=== PATIENT | female | born 1970 | race Caucasian/White ===

== ENCOUNTER 2017-09-11 17:54 | Emergency (ER) | payer MEDICAID, SELFPAY ==
[2017-09-11 17:55] VITALS: BP 121/79; PULSE 92; RESP 16; TEMP 37.2; O2SAT 97; BMI 39.6
--- NOTE | 2017-09-11 18:29 | ED.DEP ---
ED Disposition - Plan for ED Patient: Chief Complaint: Cough Instructions: ED Bronchitis Asthmatic Prescriptions: Azithromycin [Zithromax Z-Wilmer] 250 mg PO UD #1 box Prednisone [Deltasone] 20 mg PO BID #6 tab Referrals: Stephany Livingston MD [Primary Care Provider] - 5-7 Days
--- NOTE | 2017-09-11 18:31 | ED.VISSUMM ---
- ER Visit Summary Date of Service: 09/11/17 Chief Complaint: [Cough] History of Present Illness: The patient is a 47 F [presents to the emergency department with complaint of a cough times 2-3 days. Patient states that she coughed up some green phlegm at times. Patient states that her air conditioner also currently not working and has been hot over the last few days and she thinks that has affected her asthma and COPD. Patient denies fever at home. Patient complains of some chest discomfort with cough only. She denies any sick contacts. Patient's been using her nebulizer at home 4 times a day.] Physical Examination: [HEENT-PERRLA, EOMI. Cranial nerves II through XII grossly intact. TMs clear. Mucous membranes moist. No adenopathy. Cardiovascular-regular rate and rhythm without murmur or ectopy Lungs-clear to auscultation, chest wall stable without crepitus or subcu emphysema Abdomen-normoactive bowel sounds, soft, nontender, no rebound or rigidity, no peritoneal signs. Extremities-intact ?4, normal range of motion, normal pulses, atraumatic] Test Results: [None indicated] Emergency Department Course and Treatment: [Patient will be started on Zithromax and prednisone] Treatment Plan: [Follow-up with primary care physician in 5-7 days.] Disposition: [Discharged home in stable condition. Patient advised to return if increased difficulty breathing or condition should worsen in any way.] Impression: [Asthmatic bronchitis] This note was generated with [employer] dictation software. It may contain incorrect words, spelling, and punctuation that were not noted in review of the chart prior to signing ED Disposition - Plan for ED Patient: Chief Complaint: Cough Instructions: ED Bronchitis Asthmatic Prescriptions: Azithromycin [Zithromax Z-Wilmer] 250 mg PO UD #1 box Prednisone [Deltasone] 20 mg PO BID #6 tab Referrals: Stephany Livingston MD [Primary Care Provider] - 5-7 Days
[2017-09-11 18:46] VITALS: BP 131/82; PULSE 86; RESP 18; O2SAT 94
== END 2017-09-11 18:47 | disposition home or self-care (01) ==
LOC: ED 18:43
PROVIDERS: Emergency Provider Emergency Medicine; Family Provider Internal Medicine; PCP Internal Medicine
DX: J44.9 Chronic obstructive pulmonary disease, unspecified (principal); Z86.73 Personal history of transient ischemic attack (TIA), and cerebral infarction without residual deficits; I25.2 Old myocardial infarction; E11.9 Type 2 diabetes mellitus without complications; Z90.49 Acquired absence of other specified parts of digestive tract; Z79.84 Long term (current) use of oral hypoglycemic drugs; Z79.02 Long term (current) use of antithrombotics/antiplatelets; Z79.899 Other long term (current) drug therapy; F17.220 Nicotine dependence, chewing tobacco, uncomplicated
CPT/HCPCS: 99284

== ENCOUNTER → 2018-01-12 07:27 | Outpatient (CLI) | payer MEDICAID, SELFPAY ==
--- NOTE | 2018-01-12 08:10 | BRBX_PTH ---
PATIENT: NELIA KNOWLES LOC: [facility] U#:[id number] AGE/SX: 54/F ROOM: RE01/12/[address]: Dr. Rachelle Robledo MD : [id number] BED: DIS: SPEC #: [id number] RECD: 01/12/18 09:01 STATUS: GHAZAL СВЕТЛАНА #: [id number] TAJ: 01/12/18 08:[address]: Rachelle Robledo DEPT: SURGICAL PATHOLOGY RECD BY: Silvana Yan ENTERED: 01/12/18 09:53 SP TYPE: BREAST BX OTHR DR: Dr. Stephany Livingston MD Tissues: Right breast, NOS Procedures: Surgery Specimen Level IV HEADER OPERATION: Right breast stereo needle core biopsy PRE-OP DIAGNOSIS: Microcalcifications 6 o'clock anterior depth TISSUE SUBMITTED: Right breast core tissue FIXATION TIME: 11 hours MICROSCOPIC DIAGNOSIS Right breast, core biopsy: Fibrocystic change. Focal intraductal hyperplasia without atypia. Banal microcalcifications. No evidence of malignancy. AM:roseanne 01/13/18 MICROSCOPIC DESCRIPTION Slides are reviewed. GROSS DESCRIPTION Received is one container labeled with the patient's name and not further designated. The specimen consists of multiple elongated fragments of karimi-yellow fibroadipose tissue that in aggregate measure 4 x 2 x 0.3 cm. The entire specimen is submitted in two cassettes. / SJ:roseanne 01/12/18 TC:5 CPT: 17769
--- NOTE | 2018-01-12 08:31 | PCM.OPRPT ---
Report of Operation Date of Procedure: 01/12/18 Pre-Operative Diagnosis: abnormal calcifications of right breast mammograms Post-Operative Diagnosis: same Surgery/Procedure Performed:: right stereotactic breast biopsy Description of Surgical Findings:: inferior inner aspect of right breast with abnormal calcifications Type of Anesthesia:: Local - 1% xylocaine Specimen's removed: right breast tissue Estimated Blood Loss (mL): 2 ml Fluids Replaced: none Description of Procedure: After informed consent was given, the patient was brought into the breast biopsy suite. Appropriate time out protocol was followed. She was then placed in the prone position on the stereotactic biopsy table. The patient?s left/right breast was then placed in the hole at the head of the table. A petroleum inspector supervisor compression mammogram was then obtained in the medial view. The suspicious radiological lesion was then identified. Stereo pictures of the lesion were then taken for XYZ coordinates. The Mammotome biopsy stylus was then positioned where it would be entering into the patient?s breast. The skin at this site was then cleansed with a surgical skin preparation. The skin and subcutaneous tissues at this site were then infiltrated with 1% xylocaine. A small skin incision was made with an 11 blade scalpel. The biopsy stylus was then positioned into the patient?s breast at the proper coordinates of depth. Using the Mammotome vacuum-assist device, several core samples of breast tissue were obtained. A specimen mammogram was the obtained and revealed that the calcifications were within the specimen. A hemostatic marker clip was then placed into the biopsy cavity and a petroleum inspector supervisor film revealed that it was properly deployed. The patient was then placed in the supine position and pressure was applied to the breast until no active bleeding was noted. A suture was applied to reapproximate the skin. A unilateral mammogram in the CC and MLO view were then taken which revealed that the marker clip was in the same area as the previous suspicious lesion. The patient tolerated the procedure well and was discharged from the breast biopsy suite in good condition. - Complications none noted
--- NOTE | 2018-01-12 08:48 | OP.PCM_ITS ---
Report of Operation Date of Procedure: 01/12/18 Pre-Operative Diagnosis: abnormal calcifications of right breast mammograms Post-Operative Diagnosis: same Surgery/Procedure Performed:: right stereotactic breast biopsy Description of Surgical Findings:: inferior inner aspect of right breast with abnormal calcifications Type of Anesthesia:: Local - 1% xylocaine Specimen's removed: right breast tissue Estimated Blood Loss (mL): 2 ml Fluids Replaced: none Description of Procedure: After informed consent was given, the patient was brought into the breast biopsy suite. Appropriate time out protocol was followed. She was then placed in the prone position on the stereotactic biopsy table. The patient?s left/right hayley st was then placed in the hole at the head of the table. A manual lathe machinist compression mammogram was then obtained in the medial view. The suspicious radiological lesion was then identified. Stereo pictures of the lesion were then taken for XYZ coordinates. The Mammotome biopsy stylus was then positioned where it would be entering into the patient?s breast. The skin at this site was then cleansed with a surgical skin preparation. The skin and subcutaneous tissues at this site were then infiltrated with 1% xylocaine. A small skin incision was made with an 11 blade scalpel. The biopsy stylus was then positioned into the patient?s breast at the proper coordinates of depth. Using the Mammotome vacuum-assist device, several core samples of breast tissue were obtained. A specimen mammogram was the obtained and revealed that the calcifications were within the specimen. A hemostatic marker clip was then placed into the biopsy cavity and a manual lathe machinist film revealed that it was properly deployed. The patient was then placed in the supine position and pressure was applied to the breast until no active bleeding was noted. A suture was applied to reapproximate the skin. A unilateral mammogram in the CC and MLO view were then taken which revealed that the marker clip was in the same area as the previous suspicious lesion. The patient tolerated the procedure well and was discharged from the breast biopsy suite in good condition. - Complications none noted
== END ==
PROVIDERS: Family Provider Internal Medicine; PCP Internal Medicine; Visit Provider Surgery
DX: N60.11 Diffuse cystic mastopathy of right breast (principal); N60.91 Unspecified benign mammary dysplasia of right breast; R92.0 Mammographic microcalcification found on diagnostic imaging of breast; E11.9 Type 2 diabetes mellitus without complications; G40.409 Other generalized epilepsy and epileptic syndromes, not intractable, without status epilepticus; E78.00 Pure hypercholesterolemia, unspecified; I10 Essential (primary) hypertension; G43.909 Migraine, unspecified, not intractable, without status migrainosus; L40.8 Other psoriasis; E66.9 Obesity, unspecified; J45.909 Unspecified asthma, uncomplicated; I25.2 Old myocardial infarction; F43.21 Adjustment disorder with depressed mood; Z86.2 Personal history of diseases of the blood and blood-forming organs and certain disorders involving the immune mechanism; Z86.73 Personal history of transient ischemic attack (TIA), and cerebral infarction without residual deficits; Z87.898 Personal history of other specified conditions; Z90.49 Acquired absence of other specified parts of digestive tract; Z79.84 Long term (current) use of oral hypoglycemic drugs; Z79.02 Long term (current) use of antithrombotics/antiplatelets; Z79.899 Other long term (current) drug therapy; Z87.891 Personal history of nicotine dependence; F17.220 Nicotine dependence, chewing tobacco, uncomplicated
CPT/HCPCS: 19081; 88305; J7050

== ENCOUNTER 2021-07-25 17:12 | Emergency (ER) | payer MEDICAID, SELFPAY ==
[2021-07-25 17:13] VITALS: BP 109/77; PULSE 105; RESP 16; TEMP 36.4; O2SAT 95; BMI 37.8
--- NOTE | 2021-07-25 17:30 | EKG12_ITS ---
Test Reason : CP Blood Pressure : / mmHG Vent. Rate : 098 BPM Atrial Rate : 098 BPM P-R Int : 144 ms QRS Dur : 084 ms QT Int : 360 ms P-R-T Axes : 063 -42 015 degrees QTc Int : 459 ms Normal sinus rhythm Left axis deviation Abnormal ECG Confirmed by DANIEL BEEBE, FREDY ([id number]), editor producer MARYA OGLESBY ([id number]) on 07/28/2021 1:33:10 PM Referred By: OTTO Confirmed By:FREDY SANCHEZ MD
--- NOTE | 2021-07-25 17:30 | ED.VIS.CHEST ---
HPI History of Present Illness Chief Complaint: Chest Pain Informant: patient Onset/Context/Timing Onset: Today Activity at onset: sudden Quality: Positive for - (Tightness with occasional sharp pain.) Location: - (Anterior chest wall) Current Severity: Mild Maximum Severity: Moderate Worsened By: Movement of Arm Narrative Narrative: Patient presents via EMS secondary to chest pain. She states that she was laying in bed about 1/2-hour before arrival to the ER. When she went to get up for work she noted chest tightness with occasional sharp pain. She states she has occasional shortness of breath but relates that to her asthma and COPD. She reports being told that she had an NH in 2017 but never went and got stents. She had been following with the cardiology office in [place]. [facility] Medical History Asthma COPD (chronic obstructive pulmonary disease) Diabetes Epilepsy History of stroke HTN (hypertension) Home Medications clopidogrel 75 mg PO DAILY 01/26/17 [History Last Taken Unknown] cyanocobalamin (vitamin B-12) [Vitamin B-12] 1,000 mcg IM Q30D 01/26/17 [History Last Taken Unknown] furosemide [Lasix] 40 mg PO DAILY 01/26/17 [History Last Taken Unknown] gabapentin [Neurontin] 300 mg PO DAILY 01/26/17 [History Last Taken Unknown] levetiracetam [Keppra] 750 mg PO BID 01/26/17 [History Last Taken Unknown] metformin 500 mg PO BID 01/26/17 [History Last Taken Unknown] omeprazole 20 mg PO DAILY #30 capsule 01/26/17 [Rx Last Taken Unknown] simvastatin 20 mg PO QHS 01/26/17 [History Last Taken Unknown] azithromycin 250 mg PO UD #1 box 09/11/17 [Rx Last Taken Unknown] prednisone 20 mg PO BID #6 tab 09/11/17 [Rx Last Taken Unknown] Allergy/AdvReac Type Severity Reaction Status Date / Time Latex, Natural Rubber Allergy Rash Verified 07/25/21 17:17 Penicillins [PCN] AdvReac Nausea/Vom/ Verified 07/25/21 17:17 Diarrhea Social History Smoking Status: Current every day smoker tobacco type: smokeless tobacco ROS ROS ED Constitutional Constitutional ED: Denies chills or fever(s) Eyes Eyes: Denies change in vision ENT ENT ED: Denies sore throat Cardiovascular Cardiovascular: Reports chest pain Respiratory/Chest Respiratory/Chest: Reports dyspnea; Denies cough Gastrointestinal Gastrointestinal: Denies abdominal pain, nausea or vomiting Genitourinary Genitourinary ED: Denies dysuria Musculoskeletal Musculoskeletal: Denies back pain Integumentary Denies rash Neurologic Neurologic: Denies headache(s) or weakness Allergic/Immunologic Allergic/Immunologic ED: Denies urticaria EXAM Physical Exam Const Vital Signs: 07/25/21 17:13 07/25/21 17:17 07/25/21 17:38 Temperature 97.5 F L Temperature Source Temporal Pulse Rate 105 H Respiratory Rate 16 Respiratory Effort Normal Non-Labored Blood Pressure 109/77 Blood Pressure Mean 87 Pulse Ox 95 Oxygen Delivery Method Room Air Room Air 07/25/21 18:12 07/25/21 20:30 Temperature Temperature Source Pulse Rate 77 Respiratory Rate 22 H Respiratory Effort Blood Pressure 109/75 107/70 Blood Pressure Mean 86 82 Pulse Ox 98 97 Oxygen Delivery Method Room Air Positive well nourished and well developed General Appearance ED: well developed HEENT normocephalic Eyes PERRL and EOMs intact bilaterally Neck supple Chest Wall inspection of chest normal Chest Narrative: Anterior chest wall tenderness to palpation. No crepitus. Resp normal respiratory effort Effort and Inspection: respiratory distress Cardio regular rate and regular rhythm GI normal to inspection, nondistended, normoactive bowel sounds, soft to palpation and non-tender Extremity Extremity Narrative: 2+ bilateral lower extremity edema. Neuro Sensorium / Orientation: awake and alert Psych mental status grossly normal Skin no rashes or lesions noted Heart Score History: Slightly/Non-Suspicious ECG: Normal Age: >45 - <65 years Risk Factors: >/= 3 Risk Factors or History of CAD Troponin: </= Normal Limit Score: 3 MDM MDM MDM Narrative Medical decision making narrative: Patient had been given aspirin and nitro with EMS. Lab work, EKG, chest x-ray obtained. Lab Data Attestation: I reviewed the patient's lab results. Labs: Laboratory Results - last 24 hr 07/25/21 07/25/21 07/25/21 17:45 17:45 17:45 WBC 6.2 RBC 4.48 Hgb 11.7 L Hct 37.0 MCV 82.6 MCH 26.1 L MCHC 31.6 L RDW Std Deviation 41.5 RDW Coeff of Pb 13.9 Plt Count 272 MPV 9.2 Immature Gran % (Auto) 0.200 Neut % (Auto) 56.8 Lymph % (Auto) 29.6 [place] % (Auto) 8.8 Eos % (Auto) 4.1 Baso % (Auto) 0.5 Absolute Neuts (auto) 3.5 Absolute Lymphs (auto) 1.82 Nucleated RBC % 0 D-Dimer Quant (PE/DVT) 0.65 H* Sodium 139 Potassium 3.2 L Chloride 102 Carbon Dioxide 33.0 H Anion Gap 4 L BUN 11 Creatinine 0.88 Estim Creat Clear Calc 65.31 Est GFR (MDRD) Af Amer 86 Est GFR (MDRD) Non-Af 71 BUN/Creatinine Ratio 12.4 Glucose 111 H Calcium 11.2 H Troponin I High Sens 4 07/25/21 20:08 WBC RBC Hgb Hct MCV MCH MCHC RDW Std Deviation RDW Coeff of Pb Plt Count MPV Immature Gran % (Auto) Neut % (Auto) Lymph % (Auto) [place] % (Auto) Eos % (Auto) Baso % (Auto) Absolute Neuts (auto) Absolute Lymphs (auto) Nucleated RBC % D-Dimer Quant (PE/DVT) Sodium Potassium Chloride Carbon Dioxide Anion Gap BUN Creatinine Estim Creat Clear Calc Est GFR (MDRD) Af Amer Est GFR (MDRD) Non-Af BUN/Creatinine Ratio Glucose Calcium Troponin I High Sens < 3 L Radiography Chest X-Ray - ED: 1 View, Read by ED Physician and Chronic Changes Diagnostic Testing: Clinical Impression(s) from Imaging Studies Chest X-Ray 07/25/21 17:42 IMPRESSION: Nonacute portable x-ray examination of the chest. Electronically Signed: Brad Justice MD ([place]) at 17:58 EDT , Chest CTA 07/25/21 18:59 IMPRESSION: No central or segmental pulmonary embolism. Electronically Signed: Brad Justice MD (Brooks) at 19:30 EDT , EKG Initial EKG: Attestation: I personally reviewed and interpreted this EKG as follows: Interpretation: Sinus Rhythm (Sinus at 98 with no acute ischemia.) Treatment and Re-Evaluation Narrative: Lab work reveals normal white count and hemoglobin. Chemistry studies significant only for slightly low potassium at 3.2. Initial troponin 4. D-dimer elevated at 0.65. Chest x-ray per my interpretation reveals chronic changes only. Radiologist interpretation reviewed. CTA of the chest obtained and reveals no evidence of PE. Repeat troponin obtained and is less than 3. On repeat evaluation patient is talking on cell phone in no discomfort. Test results discussed with her. Reassurance provided and return instructions given. Discharge Plan Triage Chief Complaint: Chest Pain ED Provider: Steph Trejo Dx/Rx/DC Orders Clinical Impression: Chest pain Instructions: ED Chest Pain, Uncertain Cause Prescriptions: No Action furosemide [Lasix] 40 MG tablet 40 mg PO DAILY RF: 0 metformin 500 MG tablet 500 mg PO BID RF: 0 clopidogrel 75 MG tablet 75 mg PO DAILY RF: 0 simvastatin 20 MG tablet 20 mg PO QHS RF: 0 gabapentin [Neurontin] 300 MG capsule 300 mg PO DAILY RF: 0 levetiracetam [Keppra] 750 MG tablet 750 mg PO BID RF: 0 cyanocobalamin (vitamin B-12) [Vitamin B-12] 1,000 MCG/ML Drops 1,000 mcg IM Q30D RF: 0 omeprazole 20 MG capsule 20 mg PO DAILY Qty: 30 RF: 0 azithromycin 250 MG tablet 250 mg PO UD Qty: 1 RF: 0 prednisone 20 MG tablet 20 mg PO BID Qty: 6 RF: 0 Primary Care Provider: Stephany Livingston Referrals: Stephany Livingston MD [Primary Care Provider] - 1-2 Weeks Activity Restrictions/Additional Instructions: Follow-up with your knife setter in [place]. Disposition Disposition: Home, Self Care
--- NOTE | 2021-07-25 17:42 | RAD_ITS ---
STUDY: X-RAY CHEST REASON FOR EXAM: Female, 50 years old. CHEST PAIN THAT STARTED ABOUT A HALF HOUR AGO. REPORTS PAIN WITH MOVEMENT. TECHNIQUE: AP COMPARISON: None. FINDINGS: The lungs are clear and expanded. There is no demonstrated pleural abnormality. Normal size heart. Normal mediastinum and jesusita. Normal visualized pulmonary arteries. Normal visualized aortic arch and descending thoracic aorta. Normal visualized thoracic spine. Normal visualized ribs, clavicles, and shoulders. There is no demonstrated abnormality of the visualized soft tissue structures of the upper abdomen. RAD/Chest 1 View (Portable) IMPRESSION: Nonacute portable x-ray examination of the chest. Electronically Signed: Brad Justice MD (Brooks) at 17:58 EDT ,
[2021-07-25 18:12] VITALS: BP 109/75; PULSE 77; RESP 22; O2SAT 98
[2021-07-25 18:14] LABS: Absolute Lymphocyte Count 1.82 X10^3/uL (0.83-4.51); Absolute Neutrophil Count 3.5 X10^3/uL (2.0-7.7); Basophil# 0.03 X10^3/uL; Basophil% 0.5 % (0-1); Eosinophil# 0.25 X10^3/uL; Eosinophils% 4.1 % (0-5); Hemoglobin 11.7 g/dL (12.0-15.0); Lymphocyte # 1.82 X10^3/ul (0.83-4.51); Lymphocyte % 29.6 % (19-41); Mean Corp Hgb Conc 31.6 g/dL (32-36); Mean Corpuscular Hgb 26.1 pg (27.0-32.0); Mean Corpuscular Volume 82.6 fL (81-99); Mean Platelet Vol. 9.2 fl (6.2-12.0); Monocyte# 0.54 X10^3/uL; Monocyte% 8.8 % (0-10); NRBC Flagged by Analyzer 0 % (0-5); Neutrophil % 56.8 % (47-70); Platelet Count 272 K/mm3 (150-450); RBC Distribution Width CV 13.9 % (11.6-14.6); RBC Distribution Width SD 41.5 fl (35.1-43.9); Red Blood Count 4.48 M/mm3 (4.2-5.4); White Blood Count 6.2 K/mm3 (4.4-11.0)
[2021-07-25 18:34] LABS: Anion Gap 4 (5-15); BUN 11 mg/dL (7-18); BUN/Creat Ratio 12.4 RATIO (10-20); Calcium,Total 11.2 mg/dL (8.5-10.1); Chloride 102 mmol/L (98-107); Creatinine, Serum 0.88 mg/dL (0.55-1.02); EST Glomerular Filtration Rate 71 mL/min (>60); Est Glom Filt Rate - Afr Amer 86 mL/min (>60); Estimated Creatinine Clearance 65.31 ml/min; Glucose 111 mg/dL (74-106); Potassium 3.2 mmol/L (3.5-5.1); Sodium Level 139 mmol/L (136-145); Troponin-I HS (w/2H Reflex) 4 pg/mL (3.0-54.0)
[2021-07-25 18:50] LABS: D-Dimer Quantitative (DVT/PE) 0.65 FEU/ug/m (0.27-0.49)
--- NOTE | 2021-07-25 18:59 | CT_ITS ---
STUDY: CTA CHEST REASON FOR EXAM: Female, 50 years old. chest pain RADIATION DOSAGE (If Supplied By Facility): CTDIvol = ( 13.66 ) mGy, DLP = ( 423.56 ) mGycm TECHNIQUE: The examination was performed with the intravenous administration of IV 100mL Isovue-370. Post-processing of the angiographic images was performed, with multiplanar reformation and 3D reconstruction. Individualized dose optimization techniques were used for this CT. COMPARISON: None. FINDINGS: Normal enhancement of the main pulmonary artery and right and left pulmonary arteries. Normal enhancement of the bilateral peripheral pulmonary arteries. There is no demonstrated pulmonary embolism. Normal thoracic aorta and visualized great vessels. There is no demonstrated aortic dissection. Normal heart and pericardium. Normal mediastinum. Normal hilar regions. Normal visualized trachea and bronchi. The lungs are well expanded. Normal pulmonary parenchyma. Normal pleura. Normal chest wall structures. Normal osseous structures. There are surgical clips in the gallbladder fossa consistent with a prior cholecystectomy. CT/CTA Chest W/WO Contrast IMPRESSION: No central or segmental pulmonary embolism. Electronically Signed: Brad Justice MD (Brooks) at 19:30 EDT Reading Location ID and State: [facility] / [place] , Service support ,
[2021-07-25 20:01] LABS: Reflex Troponin-HS? (from REC) Y
[2021-07-25 20:30] VITALS: BP 107/70; O2SAT 97
[2021-07-25 20:36] LABS: Troponin-I HS < 3 pg/mL (3.0-54.0)
== END 2021-07-25 21:29 | disposition home or self-care (01) ==
PROVIDERS: Emergency Provider Emergency Medicine; PCP Internal Medicine; Visit Provider Emergency Medicine
DX: R07.89 Other chest pain (principal); J44.9 Chronic obstructive pulmonary disease, unspecified; G40.909 Epilepsy, unspecified, not intractable, without status epilepticus; E11.9 Type 2 diabetes mellitus without complications; F17.220 Nicotine dependence, chewing tobacco, uncomplicated; I10 Essential (primary) hypertension; Z86.73 Personal history of transient ischemic attack (TIA), and cerebral infarction without residual deficits; Z79.899 Other long term (current) drug therapy; Z79.84 Long term (current) use of oral hypoglycemic drugs
CPT/HCPCS: 71045; 71275; 80048; 84484; 85025; 85379; 93005; 99284; Q9967; A4216

== ENCOUNTER → 2021-10-23 | Outpatient (CLI) | payer MEDICAID, SELFPAY ==
--- NOTE | 2021-10-23 06:09 | ECHOD_ITS ---
Reason For Study: HTN Procedure This was a 2D Doppler, Color Flow transthoracic echocardiogram. Exam performed in department. Left Ventricle Normal LV size. Left ventricular systolic function is normal. The estimated ejection fraction is 57 %. Stage 1 diastolic dysfunction. No regional wall motion abnormalities noted. Right Ventricle Normal RV size. Normal systolic function. Atria Normal left atrium. Normal right atrium. Mitral Valve Normal mitral valve. Tricuspid Valve Normal tricuspid valve. Mild tricuspid valve insufficiency. Pulmonary artery systolic pressure is 21 mmHg. Aortic Valve Trisinus/trileaflet aortic valve. Pulmonic Valve Normal pulmonic valve. Great Vessels Normal aortic root. The pulmonary artery is normal size. Normal inferior vena cava. Inferior vena cava collapse with respiration. Pericardium/Pleural No pericardial effusion. MMode/2D Measurements & Calculations LVIDd: 5.1 cm IVSd: 0.88 cm Ao root diam: 3.9 cm LVIDs: 3.6 cm LVPWd: 0.81 cm RVDd: 3.2 cm FS: 28.2 % LAV(MOD-bp): 61.3 ml LA A4 area: 18.1 cm2 LA dimension(2D): 4.0 cm LAV(MOD-bp) Indexed: 30.1 ml/m2 LAV(MOD-sp2): 69.2 ml LAV(MOD-sp4): 52.0 ml RA A4 area: 11.9 cm2 Time Measurements MV dec time: 0.17 sec Doppler Measurements & Calculations MV E max josé: 81.0 cm/sec Lat Peak E' José: 10.6 cm/sec Med Peak E' José: 8.5 cm/sec MV A max josé: 83.4 cm/sec E/E' lat: 7.7 E/E' med: 9.5 MV E/A: 0.97 MV dec slope: 481.1 cm/sec2 Ao V2 max: 142.6 cm/sec LV V1 max: 119.9 cm/sec Ao max P.1 mmHg LV V1 max P.7 mmHg Ao V2 mean: 105.8 cm/sec LV V1 mean P.8 mmHg Ao mean P.0 mmHg LV V1 mean: 76.3 cm/sec Ao V2 VTI: 34.9 cm LV V1 VTI: 27.0 cm PA V2 max: 87.7 cm/sec TR max josé: 219.9 cm/sec TR max P.3 mmHg ECHO/Echo Complete Interpretation Summary Normal LV size. Left ventricular systolic function is normal. The estimated ejection fraction is 57 %. Stage 1 diastolic dysfunction. Pulmonary artery systolic pressure is 21 mmHg. The global longitudinal strain is normal. The global longitudinal strain = -18. 2 % (normal). Ordering Physician: Gabe^Hatfield^^Dr.^ Referring Physician: Stephany Livingston Performed By: Anabela Franklin, ANDREZ, RVT
--- NOTE | 2021-10-23 15:13 | STRESSREP ---
Stress Test Report Pharmacologic myocardial perfusion stress test. 51-year-old lady with a history of chest pain. Stress protocol: Resting EKG demonstrates normal sinus rhythm with a rate of 75 bpm normal intervals are noted. 0.4 mg of regadenoson was infused per usual protocol followed by rapid intravenous saline flush injection continuous EKG monitoring was performed. The patient maintained sinus rhythm throughout the recording. At rest there were no ST or T wave changes noted to suggest abnormal flow reserve and at peak infusion nonspecific ST changes were noted which did not meet the criteria for ischemia. No clinical angina was noted. The maximum heart rate was 95 bpm which was 56% of max impacted heart rate the maximum workload was 1 metabolic equivalent. At rest there were no ST or T wave changes noted to suggest abnormal flow reserve and at peak infusion nonspecific ST changes were noted. Myocardial perfusion protocol. 11.8 mCi of technetium 99m sestamibi was injected at rest. 0.4 mg of regadenoson was infused per usual protocol. At peak infusion 33.0 mCi of technetium 99m sestamibi was injected stress images were obtained stress and rest images were reconstructed and compared in the short axis vertical long and horizontal long axis. Gated images were also obtained. Perfusion SPECT analysis: Review of the stress images demonstrate normal uptake of tracer noted in all areas of the myocardium except for the anterior wall with mildly reduced perfusion. The resting images demonstrate a similar pattern. No obvious areas of reversibility are noted suggest ischemia and no previous infarct is noted. Anterior breast wall attenuation is suggested. Gated SPECT analysis: The gated ejection fraction is 60%. Conclusion: Pharmacologic myocardial perfusion stress test which appears to be normal. Preserved ejection fraction.
== END | disposition home or self-care (01) ==
PROVIDERS: PCP Internal Medicine; Referring Provider Internal Medicine Cardiovascular Disease; Visit Provider Internal Medicine Cardiovascular Disease
DX: I10 Essential (primary) hypertension (principal)
CPT/HCPCS: 78452; 93017; 93306; A9500; A4216; J2785

== ENCOUNTER 2021-11-14 11:36 | Emergency (ER) | payer MEDICAID, SELFPAY ==
[2021-11-14 11:37] VITALS: BP 130/78; PULSE 92; RESP 23; TEMP 36.6; O2SAT 100; BMI 37.4
--- NOTE | 2021-11-14 11:56 | RAD_ITS ---
STUDY: X-RAY CHEST REASON FOR EXAM: Female, 51 years old. Chest pain. Chills. TECHNIQUE: Single AP portable view of the chest. COMPARISON: Comparison is made with prior study dated 07/25/2021. FINDINGS: EKG electrodes are seen. The lungs are clear and expanded. There is no demonstrated pleural abnormality. Normal size heart. Normal mediastinum and jesusita. Normal visualized pulmonary arteries. There is atherosclerotic tortuosity of the aortic arch and descending thoracic aorta. There are diffuse degenerative changes of the visualized thoracic spine. Normal visualized ribs, clavicles, and shoulders. There is no demonstrated abnormality of the visualized soft tissue structures of the upper abdomen. RAD/Chest 1 View (Portable) IMPRESSION: No acute abnormality is seen. Electronically Signed: Miguel Nicolas MD at 12:44 EDT ,
--- NOTE | 2021-11-14 11:56 | EKG12_ITS ---
Test Reason : Blood Pressure : / mmHG Vent. Rate : 078 BPM Atrial Rate : 078 BPM P-R Int : 164 ms QRS Dur : 090 ms QT Int : 380 ms P-R-T Axes : 004 -23 019 degrees QTc Int : 433 ms Sinus rhythm with Premature supraventricular complexes Otherwise normal ECG Confirmed by DELMI BEEBE, ANJANA ([id number]), scientific publications editor MARYA OGLESBY ([id number]) on 11/18/2021 8:56:21 AM Referred By: Confirmed By:SARATH AWAD MD
--- NOTE | 2021-11-14 11:57 | EX.ED.DYSGE1 ---
HPI History of Present Illness Chief Complaint: General Illness Informant: patient Onset/Context/Timing Onset: Today Current Severity: Mild Maximum Severity: Mild Narrative Narrative: 49-year-old female history of COPD, seizure, stroke in 2002 and diabetic. States she works at [employer]. On Wednesday she had some nausea and vomiting. Otherwise states she has been feeling well. 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 She denied any headache fraction. No chest pain. No abdominal pain. Said they got her a popsicle that speech and some fluids and she was feeling better. States she just feels a little lightheaded now. She has had nausea today but no vomiting today. No diarrhea or dysuria. No fever. No shortness of breath. Prior similar symptoms: Yes Recent Illness/Hospitalization: No PFSH [facility] Medical History Asthma COPD (chronic obstructive pulmonary disease) Epilepsy Essential hypertension History of CVA (cerebrovascular accident) (2002) Type 2 diabetes mellitus Home Medications furosemide 40 mg tablet (Lasix) 40 mg PO DAILY 01/26/17 [History Last Taken Unknown] gabapentin 300 mg capsule (Neurontin) 300 mg PO DAILY 01/26/17 [History Last Taken Unknown] levetiracetam 750 mg tablet (Keppra) 750 mg PO BID 01/26/17 [History Last Taken Unknown] omeprazole 20 mg capsule,delayed release 20 mg PO DAILY #30 caps 01/26/17 [Rx Last Taken Unknown] simvastatin 20 mg tablet 20 mg PO QHS 01/26/17 [History Last Taken Unknown] azithromycin 250 mg tablet 250 mg PO UD ##1 09/11/17 [Rx Last Taken Unknown] albuterol sulfate 90 mcg/actuation aerosol inhaler (Ventolin HFA) 2 puff inhalation Q6H PRN Shortness Of Breath 10/03/21 [History Last Taken Unknown] buspirone 5 mg tablet 5 mg PO DAILY 10/03/21 [History Last Taken Unknown] ferrous sulfate 325 mg (65 mg iron) tablet (FeroSul) 325 mg PO DAILY 10/03/21 [History Last Taken Unknown] fluticasone furoate 100 mcg-vilanterol 25 mcg/dose inhalation powder (Breo Ellipta) 1 inh inhalation DAILY 10/03/21 [History Last Taken Unknown] metoprolol succinate 50 mg tablet,extended release 24 hr (Toprol XL) 50 mg PO DAILY #90 tabs 10/03/21 [Rx Last Taken Unknown] potassium chloride 10 mEq tablet,extended release 10 meq PO DAILY 10/03/21 [History Last Taken Unknown] Allergy/AdvReac Type Severity Reaction Status Date / Time Latex, Natural Rubber Allergy Rash Verified 11/14/21 11:40 Penicillins [PCN] AdvReac Nausea/Vom/ Verified 11/14/21 11:40 Diarrhea Surgical History History of cholecystectomy History of left heart catheterization (12/11/16) Social History Smoking Status: Never smoker Smokeless tobacco user: chewing tobacco ROS ROS ED ROS Narrative Nausea and vomiting. Review of Systems ROS Unobtainable: Denies due to encephalopathy Constitutional Constitutional ED: Denies chills or fever(s) Eyes Eyes: Denies blurry vision ENT ENT ED: Denies ear pain Cardiovascular Cardiovascular: Denies chest pain or palpitations Respiratory/Chest Respiratory/Chest: Denies cough or dyspnea Gastrointestinal Gastrointestinal: Reports nausea and vomiting; Denies abdominal pain, constipation, diarrhea or melena Genitourinary Genitourinary ED: Denies dysuria or hematuria Musculoskeletal Musculoskeletal: Denies arthralgias Integumentary Denies abscess Neurologic Neurologic: Denies headache(s) Psychiatric Psychiatric: Denies anxiety Endocrine Endocrinology: Denies cold intolerance Hematologic/Lymphatic Hematologic/Lymphatic: Reports none Allergic/Immunologic Allergic/Immunologic ED: Denies mouth swelling or tongue swelling EXAM Physical Exam Narrative Exam Narrative: 51-year-old female no acute distress. Vital signs stable afebrile. Pulse ox high percent on room air no signs hypoxia. She does not look septic or toxic. She does not look significantly dehydrated. H EENT exam is unremarkable. Documentation tongue is coated orange from the popsicle she had prior to arrival. Moist Riis membranes. Neck nontender no JVD. No lymphadenopathy. Lungs clear to auscultation bilaterally. Heart regular rhythm no murmur. Abdomen soft nontender. Moving all 4 extremities. 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 Dorsi plantarflexion intact. Calves are nontender without edema. Neurologically she is awake and alert with no focal motor deficits. Answering questions and following commands. Const Vital Signs: 11/14/21 11:37 11/14/21 11:37 Temperature 97.9 F Temperature Source Temporal Pulse Rate 92 Respiratory Rate 23 H Respiratory Effort Normal Blood Pressure 130/78 H Blood Pressure Mean 95 Pulse Ox 100 Oxygen Delivery Method Room Air Positive well nourished, well developed and obese; Negative for cachectic, contractures or unkempt General Appearance ED: well developed and NAD; Negative for unkempt, cachectic, contractures, cyanotic or diaphoretic Nutritional Appearance: obese; Negative for cachectic HEENT Reports moist mucous membranes; Denies dry mucous membranes Negative for trauma or tenderness Mouth ED: No dry mucous membranes Mouth: No dry mucous membranes Eyes PERRL and EOMs intact bilaterally General Eye ED: Negative for pale conjunctiva or scleral icterus Neck no lymphadenopathy, supple and no JVD General: Negative for tenderness Lymph Lymphatic: Negative for other Chest Wall inspection of chest normal and palpation of chest normal Chest: Negative for other Resp normal respiratory effort and clear to auscultation bilaterally Effort and Inspection: Negative for retractions Auscultation: Negative for rales, rhonchi or wheezes Cardio regular rate, regular rhythm, S1 normal heart sound, S2 normal heart sound and no murmurs Palpation: Negative for palpable S3 Rate: Negative for bradycardia Rhythm: Negative for abnormal rhythm GI normal to inspection, nondistended, normoactive bowel sounds, non-tender, non-distended and no masses Inspection: Negative for abdominal distention Palpation: soft; Negative for tender, guarding or mass Back/Spine no CVA tenderness General Back: Negative for CVA tenderness Cervical Spine: Negative for cervical spine tenderness Thoracic Spine / Upper Back: Negative for thoracic spinal tenderness Lumbar Spine / Lower Back: Negative for lumbar spinal tenderness Extremity normal to inspection General Extremety ED: Negative for edema or tenderness General Extremity: Negative for edema Neuro oriented x3 and CN's II-XII intact bilaterally Sensorium / Orientation: alert; Negative for orientation impaired, lethargic or stuporous Motor Exam: strength 5/5 throughout; Negative for general weakness or strength abnormal Psych mental status grossly normal Appearance: Negative for unkempt Attitude: No agitated Mood & Affect: Negative for depressed or anxious Skin no rashes or lesions noted and no wounds Lesions: No lesion noted Rashes: No rashes noted Trauma: Negative for abrasion Wounds: Negative for wounds noted MDM MDM MDM Narrative Medical decision making narrative: 51-year-old with near syncope at work. Earlier in the week she had nausea and vomiting she may be mildly dehydrated. Obviously this could be a cardiac etiology but her exam is unremarkable. She explained to me she had a recent stress test and echocardiogram which she states were unremarkable. I did look up the echo results and it shows early diastolic dysfunction. Her exam is benign. Screening labs to be obtained. Repeat exam patient is doing well at 12:38 PM. Discharged home. Fluids and rest. Off work the rest the day. Return if feeling worse. Lab Data Attestation: I reviewed the patient's lab results. Lab results narrative: CBC normal white count of 7.9. H&H 12.2 and 37 9. Platelets 285. Electrolytes show a gap of 5 normal BUN and creatinine 11 and 0.7. No signs of dehydration. Glucose 88. Troponin normal at 6. Chest x-ray unremarkable. Labs: Laboratory Results - last 24 hr 11/14/21 11/14/21 12:05 12:05 WBC 7.9 RBC 4.46 Hgb 12.2 Hct 37.9 MCV 85.0 MCH 27.4 MCHC 32.2 RDW Std Deviation 41.4 RDW Coeff of Pb 13.3 Plt Count 285 MPV 9.4 Immature Gran % (Auto) 0.400 Neut % (Auto) 64.0 Lymph % (Auto) 24.6 [place] % (Auto) 7.0 Eos % (Auto) 3.4 Baso % (Auto) 0.6 Absolute Neuts (auto) 5.0 Absolute Lymphs (auto) 1.94 Nucleated RBC % 0 Sodium 137 Potassium 3.8 Chloride 102 Carbon Dioxide 30.0 Anion Gap 5 BUN 11 Creatinine 0.77 Estim Creat Clear Calc 73.80 Est GFR (MDRD) Af Amer 101 Est GFR (MDRD) Non-Af 83 BUN/Creatinine Ratio 14.2 Glucose 88 Calcium 10.9 H Troponin I High Sens 6 Radiography Chest X-Ray - ED: 1 View, Read by ED Physician, Heart, Lungs, Mediastinum, Bony Structures, No Acute Disease and Chronic Changes Diagnostic Testing: Chest x-ray, portable, single view interpreted by self shows no acute abnormality. Normal cardiac silhouette. Normal lung hallman. Rhythm Strip Rhythm Strip: Sinus Rhythm Rate: 78 Ectopy: None EKG Initial EKG: Attestation: I personally reviewed and interpreted this EKG as follows: Interpretation: Sinus Rhythm and No Acute Injury Pattern Comments: Renal sinus rhythm rate of 78 no acute signs of OK or ischemia. Premature supraventricular complexes. Prior EKG tracings: not available for review Discharge Plan Triage Chief Complaint: General Illness ED Provider: Vini Harris Dx/Rx/DC Orders Clinical Impression: Near syncope, History of CVA (cerebrovascular accident), History of diabetes mellitus Instructions: ED Near-Fainting, Uncertain Cause Prescriptions: No Action buspirone 5 mg tablet 5 mg PO DAILY ferrous sulfate [FeroSul] 325 mg (65 mg iron) tablet 325 mg PO DAILY potassium chloride 10 mEq tablet extended release 10 meq PO DAILY albuterol sulfate [Ventolin HFA] 90 mcg/actuation HFA aerosol inhaler 2 puff inhalation Q6H PRN (Reason: Shortness Of Breath) fluticasone furoate-vilanterol [Breo Ellipta] 100-25 mcg/dose blister with device 1 inh inhalation DAILY metoprolol succinate [Toprol XL] 50 mg tablet extended release 24 hr 50 mg PO DAILY Qty: 90 3RF furosemide [Lasix] 40 MG tablet 40 mg PO DAILY simvastatin 20 MG tablet 20 mg PO QHS gabapentin [Neurontin] 300 MG capsule 300 mg PO DAILY levetiracetam [Keppra] 750 MG tablet 750 mg PO BID omeprazole 20 MG capsule 20 mg PO DAILY Qty: 30 0RF azithromycin 250 MG tablet 250 mg PO UD Qty: 1 0RF Rx Instructions: TAKE 2 TABLETS 1ST DAY THEN 1 TABLET DAILY FOR NEXT 4 DAYS. Primary Care Provider: Stephany Livingston Referrals: Stephany Livingston MD [Primary Care Provider] - 3-5 Days if not improving Activity Restrictions/Additional Instructions: Plenty of fluids and rest. You may have been slightly dehydrated today however your labs did not show dehydration. Follow-up with your primary care physician not improving. Return if worse. Off work the rest of the day. Disposition Disposition: Home, Self Care
[2021-11-14 12:16] LABS: Absolute Lymphocyte Count 1.94 X10^3/uL (0.83-4.51); Basophil# 0.05 X10^3/uL; Basophil% 0.6 % (0-1); Eosinophil# 0.27 X10^3/uL; Eosinophils% 3.4 % (0-5); Hematocrit 37.9 % (37-47); Hemoglobin 12.2 g/dL (12.0-15.0); Lymphocyte # 1.94 X10^3/ul (0.83-4.51); Lymphocyte % 24.6 % (19-41); Mean Corp Hgb Conc 32.2 g/dL (32-36); Mean Corpuscular Hgb 27.4 pg (27.0-32.0); Mean Platelet Vol. 9.4 fl (6.2-12.0); Monocyte# 0.55 X10^3/uL; NRBC Flagged by Analyzer 0 % (0-5); Neutrophil # 5.04 X10^3/uL (2.7-7.7); Platelet Count 285 K/mm3 (150-450); RBC Distribution Width CV 13.3 % (11.6-14.6); RBC Distribution Width SD 41.4 fl (35.1-43.9); Red Blood Count 4.46 M/mm3 (4.2-5.4); White Blood Count 7.9 K/mm3 (4.4-11.0)
[2021-11-14 12:31] LABS: Anion Gap 5 (5-15); BUN 11 mg/dL (7-18); BUN/Creat Ratio 14.2 RATIO (10-20); Calcium,Total 10.9 mg/dL (8.5-10.1); Chloride 102 mmol/L (98-107); Creatinine, Serum 0.77 mg/dL (0.55-1.02); EST Glomerular Filtration Rate 83 mL/min (>60); Est Glom Filt Rate - Afr Amer 101 mL/min (>60); Glucose 88 mg/dL (74-106); Potassium 3.8 mmol/L (3.5-5.1); Sodium Level 137 mmol/L (136-145)
[2021-11-14 12:52] VITALS: BP 155/96; PULSE 78
[2021-11-14 14:11] LABS: Troponin-I HS (w/2H Reflex) 6 pg/mL (3.0-54.0)
== END 2021-11-14 12:54 | disposition home or self-care (01) ==
PROVIDERS: Emergency Provider Emergency Medicine; PCP Internal Medicine; Visit Provider Emergency Medicine
DX: R55 Syncope and collapse (principal); J44.9 Chronic obstructive pulmonary disease, unspecified; G40.909 Epilepsy, unspecified, not intractable, without status epilepticus; E11.9 Type 2 diabetes mellitus without complications; Z86.73 Personal history of transient ischemic attack (TIA), and cerebral infarction without residual deficits; I10 Essential (primary) hypertension; Z79.899 Other long term (current) drug therapy; F17.220 Nicotine dependence, chewing tobacco, uncomplicated; E66.9 Obesity, unspecified; Z68.37 Body mass index [BMI] 37.0-37.9, adult
CPT/HCPCS: 71045; 80048; 84484; 85025; 93005; 99285; A4216

== ENCOUNTER 2022-03-28 13:25 | Emergency (ER) | payer MEDICAID, SELFPAY ==
[2022-03-28 13:26] VITALS: BP 139/94; PULSE 108; RESP 16; TEMP 36.5; O2SAT 98; BMI 35.8
[2022-03-28 13:53] LABS: Absolute Lymphocyte Count 2.13 X10^3/uL (0.83-4.51); Absolute Neutrophil Count 3.9 X10^3/uL (2.0-7.7); Basophil# 0.04 X10^3/uL; Basophil% 0.6 % (0-1); Eosinophil# 0.18 X10^3/uL; Eosinophils% 2.7 % (0-5); Hematocrit 40.4 % (37-47); Hemoglobin 13.1 g/dL (12.0-15.0); Lymphocyte # 2.13 X10^3/ul (0.83-4.51); Lymphocyte % 32.1 % (19-41); Mean Corp Hgb Conc 32.4 g/dL (32-36); Mean Corpuscular Hgb 27.7 pg (27.0-32.0); Mean Corpuscular Volume 85.4 fL (81-99); Mean Platelet Vol. 9.3 fl (6.2-12.0); Monocyte# 0.42 X10^3/uL; Monocyte% 6.3 % (0-10); NRBC Flagged by Analyzer 0 % (0-5); Neutrophil # 3.85 X10^3/uL (2.7-7.7); Platelet Count 319 K/mm3 (150-450); RBC Distribution Width SD 40.4 fl (35.1-43.9); Red Blood Count 4.73 M/mm3 (4.2-5.4); White Blood Count 6.6 K/mm3 (4.4-11.0)
--- NOTE | 2022-03-28 14:01 | EDS_ITS ---
HPI History of Present Illness Chief Complaint: Nausea/Vomiting Detail of Chief Complaint: Nausea and vomiting with coffee-ground emesis Informant: patient Onset/Context/Timing Onset: Days (Approximately 2 days ago) Context: Sudden Onset Timing: Intermittent Quality: Vomiting brown material and what appears to be coffee grounds. Location: Upper GI Current Severity: Moderate Maximum Severity: Moderate Worsened by: Nothing Relieved by: Nothing Associated Symptoms Associated Symptoms: Denies black or maroon-colored stool. Denies history of varices. Does hav Narrative Narrative: Patient is a 51-year-old woman with history of hypertension, GERD/peptic ulcer disease, hypercholesterolemia, COPD and chronic pain due to diabetic neuropathy who presents with coffee-ground emesis and numbness to the tips of her fingers right hand and patchy areas of numbness the right forearm. Patient was asked why she is crying. She states it hurts when she has her IV started. Patient denies headache, double vision, blurred vision loss of vision. Denies decreased hearing ringing in ears. Denies trouble with speech or swallowing. She denies cardiac respiratory symptoms. She states her stool is dark but not black or maroon. She has not noted blood in her stool. She denies any abdominal discomfort. She denies hematuria. Denies bleeding of her gums. She denies bruising easily. Prior similar symptoms: No Recent Illness/Hospitalization: No PFSH [facility] Medical History Asthma COPD (chronic obstructive pulmonary disease) Epilepsy Essential hypertension History of CVA (cerebrovascular accident) (2002) History of heart attack Type 2 diabetes mellitus Home Medications gabapentin 300 mg capsule (Neurontin) 300 mg PO DAILY 01/26/17 [History Last Taken Unknown] levetiracetam 750 mg tablet (Keppra) 750 mg PO BID 01/26/17 [History Last Taken Unknown] omeprazole 20 mg capsule,delayed release 20 mg PO DAILY #30 caps 01/26/17 [Rx Last Taken Unknown] simvastatin 20 mg tablet 20 mg PO QHS 01/26/17 [History Last Taken Unknown] azithromycin 250 mg tablet 250 mg PO UD ##1 09/11/17 [Rx Last Taken Unknown] albuterol sulfate 90 mcg/actuation aerosol inhaler (Ventolin HFA) 2 puff inhalation Q6H PRN Shortness Of Breath 10/03/21 [History Last Taken Unknown] buspirone 5 mg tablet 5 mg PO DAILY 10/03/21 [History Last Taken Unknown] ferrous sulfate 325 mg (65 mg iron) tablet (FeroSul) 325 mg PO DAILY 10/03/21 [History Last Taken Unknown] fluticasone furoate 100 mcg-vilanterol 25 mcg/dose inhalation powder (Breo Ellipta) 1 inh inhalation DAILY 10/03/21 [History Last Taken Unknown] metoprolol succinate 50 mg tablet,extended release 24 hr (Toprol XL) 50 mg PO DAILY #90 tabs 10/03/21 [Rx Last Taken Unknown] potassium chloride 10 mEq tablet,extended release 10 meq PO DAILY 10/03/21 [History Last Taken Unknown] furosemide 40 mg tablet (Lasix) 40 mg PO DAILY #90 tabs 01/01/22 [Rx Last Taken Unknown] Allergy/AdvReac Type Severity Reaction Status Date / Time Latex, Natural Rubber Allergy Rash Verified 03/28/22 13:30 Penicillins [PCN] AdvReac Nausea/Vom/ Verified 03/28/22 13:30 Diarrhea Surgical History History of cholecystectomy History of left heart catheterization (12/11/16) Social History (Updated 03/28/22 @ 14:[address] Wilbert Gutierrez MD) household members: none Smoking Status: Former smoker Smokeless tobacco user: chewing tobacco ROS ROS ED Constitutional Constitutional ED: Denies chills, fever(s), subjective, sweats or weight loss Eyes Eyes: Denies blurry vision, change in vision or diplopia ENT ENT ED: Denies ear pain, rhinorrhea or sore throat Cardiovascular Cardiovascular: Denies chest pain, orthopnea, palpitations, paroxysmal nocturnal dyspnea or racing heartbeat Respiratory/Chest Respiratory/Chest: Denies cough, dyspnea, dyspnea on exertion, orthopnea or paroxysmal nocturnal dyspnea Gastrointestinal Gastrointestinal: Reports nausea, vomiting and other Details: Coffee-ground emesis ; Denies abdominal pain Genitourinary Genitourinary ED: Denies hematuria Integumentary Denies rash Neurologic Neurologic: Denies paresthesias or weakness Psychiatric Psychiatric: Reports anxiety Hematologic/Lymphatic Hematologic/Lymphatic: Reports anemia; Denies easy bleeding or easy bruising EXAM Physical Exam Const Vital Signs: 03/28/22 13:26 Temperature 97.7 F L Temperature Source Temporal Pulse Rate 108 H Respiratory Rate 16 Blood Pressure 139/94 H Blood Pressure Mean 109 Pulse Ox 98 Oxygen Delivery Method Room Air Positive well nourished, well developed and obese Constitutional Narrative: Patient is crying because of IV insertion. General Appearance ED: well developed; Negative for cyanotic, diaphoretic or pallor Nutritional Appearance: obese HEENT Reports moist mucous membranes HEENT Narrative: Head is atraumatic normocephalic. Ears normal. Nares patent. Posterior pharynx out erythema or exudate. Uvula midline. trauma and tenderness Eyes PERRL and EOMs intact bilaterally General Eye ED: Negative for pale conjunctiva or scleral icterus Neck no lymphadenopathy, supple and no JVD Neck Narrative: Trachea is midline. There is no Tory stridor. Chest Wall inspection of chest normal and palpation of chest normal Resp normal respiratory effort and clear to auscultation bilaterally Cardio regular rhythm, S1 normal heart sound, S2 normal heart sound and no murmurs Rate: tachycardic GI normal to inspection, nondistended, normoactive bowel sounds, non-distended and no masses; Negative for hepatosplenomegaly Palpation: tender epigastric; Negative for guarding, splenomegaly or mass Back/Spine no CVA tenderness Extremity normal to inspection General Extremety ED: Negative for tenderness Neuro oriented x3, CN's II-XII intact bilaterally and no sensory deficits noted Sensorium / Orientation: alert Psych Mood & Affect: anxious and tearful Skin no rashes or lesions noted, no wounds and skin turgor normal General Skin Exam: Negative for jaundice or pallor MDM MDM MDM Narrative Medical decision making narrative: His history is consistent with an upper GI bleed due to gastritis versus esophagitis versus peptic ulcer disease. NG was ordered to determine if there is active bleeding at this time. CBC to rule out anemia. BMP to assess BUN to creatinine ratio. Orthostatic vital signs were obtained since she complains of lightheadedness. Suspect her numbness in the tips of her fingers is due to diabetic neuropathy since she also has pain. Lab Data Attestation: I reviewed the patient's lab results. Lab results narrative: CBC, H&H and platelet count are normal. Basic metabolic panel is normal except for an elevated calcium. Since patient's H&H is normal, BUN to creatinine ratio is less than 20 and patient is not orthostatic will assess for active bleeding with NG/OG. I was informed by nursing staff patient refuses placement of OG and NG. Since her blood work is normal she is not orthostatic we will discharge to home. She is presently on omeprazole. We will confirm that she is still taking the omeprazole. At the time of ex interview patient admits she did not take her omeprazole recen tly. She was told she has to take this. Explained to her that the numbness is due to diabetic neuropathy. She was discharged home in stable condition. Labs: Laboratory Results - last 24 hr 03/28/22 03/28/22 13:40 13:40 WBC 6.6 RBC 4.73 Hgb 13.1 Hct 40.4 MCV 85.4 MCH 27.7 MCHC 32.4 RDW Std Deviation 40.4 RDW Coeff of Pb 13.0 Plt Count 319 MPV 9.3 Immature Gran % (Auto) 0.300 Neut % (Auto) 58.0 Lymph % (Auto) 32.1 [place] % (Auto) 6.3 Eos % (Auto) 2.7 Baso % (Auto) 0.6 Absolute Neuts (auto) 3.9 Absolute Lymphs (auto) 2.13 Nucleated RBC % 0 Sodium 142 Potassium 3.8 Chloride 105 Carbon Dioxide 30.0 Anion Gap 7 BUN 14 Creatinine 0.81 Estim Creat Clear Calc 70.16 Est GFR (MDRD) Af Amer 95 Est GFR (MDRD) Non-Af 79 BUN/Creatinine Ratio 17.2 Glucose 94 Calcium 10.8 H Discharge Plan Triage Chief Complaint: Nausea/Vomiting ED Provider: Wilbert Gutierrez Dx/Rx/DC Orders Clinical Impression: Acute upper GI bleed, Essential hypertension, Type 2 diabetes mellitus, History of CVA (cerebrovascular accident), Diabetic neuropathy Instructions: ED Upper GI Bleeding (Stable) Prescriptions: No Action buspirone 5 mg tablet 5 mg PO DAILY ferrous sulfate [FeroSul] 325 mg (65 mg iron) tablet 325 mg PO DAILY potassium chloride 10 mEq tablet extended release 10 meq PO DAILY albuterol sulfate [Ventolin HFA] 90 mcg/actuation HFA aerosol inhaler 2 puff inhalation Q6H PRN (Reason: Shortness Of Breath) fluticasone furoate-vilanterol [Breo Ellipta] 100-25 mcg/dose blister with device 1 inh inhalation DAILY metoprolol succinate [Toprol XL] 50 mg tablet extended release 24 hr 50 mg PO DAILY Qty: 90 3RF simvastatin 20 MG tablet 20 mg PO QHS gabapentin [Neurontin] 300 MG capsule 300 mg PO DAILY levetiracetam [Keppra] 750 MG tablet 750 mg PO BID omeprazole 20 MG capsule 20 mg PO DAILY Qty: 30 0RF azithromycin 250 MG tablet 250 mg PO UD Qty: 1 0RF Rx Instructions: TAKE 2 TABLETS 1ST DAY THEN 1 TABLET DAILY FOR NEXT 4 DAYS. furosemide [Lasix] 40 mg tablet 40 mg PO DAILY Qty: 90 3RF Primary Care Provider: Stephany Livingston Referrals: Stephany Livingston MD [Primary Care Provider] - 3-5 Days Activity Restrictions/Additional Instructions: 1. You must take your omeprazole daily. 2. If you notice black or maroon-colored stool return to the emergency department. 3. If you vomit bright red blood return to the emergency department Disposition Disposition: Home, Self Care
[2022-03-28 14:04] LABS: Anion Gap 7 (5-15); BUN 14 mg/dL (7-18); BUN/Creat Ratio 17.2 RATIO (10-20); Calcium,Total 10.8 mg/dL (8.5-10.1); Chloride 105 mmol/L (98-107); Creatinine, Serum 0.81 mg/dL (0.55-1.02); EST Glomerular Filtration Rate 79 mL/min (>60); Est Glom Filt Rate - Afr Amer 95 mL/min (>60); Estimated Creatinine Clearance 70.16 ml/min; Glucose 94 mg/dL (74-106); Potassium 3.8 mmol/L (3.5-5.1); Sodium Level 142 mmol/L (136-145)
--- NOTE | 2022-03-28 14:36 | ED.RN ---
Pt. refused NG tube.
[2022-03-28] MEDS: Lidocaine Jelly 2% 20 ML Syringe (URO-JET) 1 APPLIC TOPICAL (14:47)
== END 2022-03-28 14:52 | disposition home or self-care (01) ==
PROVIDERS: Emergency Provider Emergency Medicine; PCP Internal Medicine; Visit Provider Emergency Medicine
DX: K92.1 Melena (principal); J44.9 Chronic obstructive pulmonary disease, unspecified; E11.40 Type 2 diabetes mellitus with diabetic neuropathy, unspecified; G40.909 Epilepsy, unspecified, not intractable, without status epilepticus; I10 Essential (primary) hypertension; E78.00 Pure hypercholesterolemia, unspecified; G89.29 Other chronic pain; K21.9 Gastro-esophageal reflux disease without esophagitis; E66.9 Obesity, unspecified; I25.2 Old myocardial infarction; Z87.891 Personal history of nicotine dependence; Z86.73 Personal history of transient ischemic attack (TIA), and cerebral infarction without residual deficits
CPT/HCPCS: 80048; 85025; 99283

== ENCOUNTER 2022-07-06 01:57 | Emergency (ER) | payer OTHER, MEDICAID, SELFPAY ==
[2022-07-06 01:58] VITALS: BP 121/79; PULSE 104; RESP 20; TEMP 36.6; O2SAT 99; BMI 36.6
--- NOTE | 2022-07-06 02:05 | EKG12_ITS ---
Test Reason : DYSRHYTHMIA Blood Pressure : / mmHG Vent. Rate : 088 BPM Atrial Rate : 088 BPM P-R Int : 152 ms QRS Dur : 088 ms QT Int : 364 ms P-R-T Axes : 059 -19 049 degrees QTc Int : 440 ms Sinus rhythm with Premature atrial complexes Otherwise normal ECG Confirmed by DANIEL BEEBE, FREDY ([id number]), makeup editor MARYA OGLESBY ([id number]) on 07/06/2022 11:41:44 AM Referred By: KRISTEN Confirmed By:FREDY SANCHEZ MD
--- NOTE | 2022-07-06 02:05 | EX.ED.DYSGE1 ---
HPI History of Present Illness Chief Complaint: Dizziness Informant: patient and EMS Narrative Narrative: Brought in by EMS from work sudden onset of lightheaded symptoms. 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 Patient reports she thought her sugars were low she had a nutty bar did not improve. There is no chest pains. Reported a slight headache. Took ibuprofen. Symptoms not improved therefore EMS was contacted. Denied prodromal chest pains or shortness of breath. Denies recent vomiting or diarrhea. Denies urinary symptoms. Blood glucose 158 per EMS. However reported by EMS personnel, their carbon monoxide meter went off, they are going back to the facility to check the levels. Patient does not smoke She does chew tobacco. Prior similar symptoms: No PFSH PFSH Medical History Asthma COPD (chronic obstructive pulmonary disease) Epilepsy Essential hypertension History of CVA (cerebrovascular accident) (2002) History of heart attack Type 2 diabetes mellitus Home Medications gabapentin 300 mg capsule (Neurontin) 300 mg PO DAILY 01/26/17 [History Last Taken Unknown] levetiracetam 750 mg tablet (Keppra) 750 mg PO BID 01/26/17 [History Last Taken Unknown] omeprazole 20 mg capsule,delayed release 20 mg PO DAILY #30 caps 01/26/17 [Rx Last Taken Unknown] simvastatin 20 mg tablet 20 mg PO QHS 01/26/17 [History Last Taken Unknown] azithromycin 250 mg tablet 250 mg PO UD ##1 09/11/17 [Rx Last Taken Unknown] albuterol sulfate 90 mcg/actuation aerosol inhaler (Ventolin HFA) 2 puff inhalation Q6H PRN Shortness Of Breath 10/03/21 [History Last Taken Unknown] buspirone 5 mg tablet 5 mg PO DAILY 10/03/21 [History Last Taken Unknown] ferrous sulfate 325 mg (65 mg iron) tablet (FeroSul) 325 mg PO DAILY 10/03/21 [History Last Taken Unknown] fluticasone furoate 100 mcg-vilanterol 25 mcg/dose inhalation powder (Breo Ellipta) 1 inh inhalation DAILY 10/03/21 [History Last Taken Unknown] metoprolol succinate 50 mg tablet,extended release 24 hr (Toprol XL) 50 mg PO DAILY #90 tabs 10/03/21 [Rx Last Taken Unknown] potassium chloride 10 mEq tablet,extended release 10 meq PO DAILY 10/03/21 [History Last Taken Unknown] furosemide 40 mg tablet (Lasix) 40 mg PO DAILY #90 tabs 01/01/22 [Rx Last Taken Unknown] Allergy/AdvReac Type Severity Reaction Status Date / Time Latex, Natural Rubber Allergy Rash Verified 05/18/22 14:28 Penicillins [PCN] AdvReac Nausea/Vom/ Verified 05/18/22 14:28 Diarrhea Surgical History History of cholecystectomy History of left heart catheterization (12/11/16) Social History household members: none Smoking Status: Current every day smoker tobacco type: smokeless tobacco Smokeless tobacco user: chewing tobacco ROS ROS ED Constitutional Constitutional ED: Denies chills, fever(s) or sweats Eyes Eyes: Denies change in vision ENT ENT ED: Denies dysphagia or sore throat Cardiovascular Cardiovascular: Reports other Details: Lightheaded symptoms ; Denies chest pain, leg edema, palpitations or racing heartbeat Respiratory/Chest Respiratory/Chest: Denies cough, dyspnea or dyspnea on exertion Gastrointestinal Gastrointestinal: Denies abdominal pain, diarrhea, nausea or vomiting Genitourinary Genitourinary ED: Denies dysuria, hematuria or urinary frequency Musculoskeletal Musculoskeletal: Denies back pain, extremity pain or neck pain Integumentary Denies rash or wounds Neurologic Neurologic: Reports headache(s); Denies paresthesias or weakness EXAM Physical Exam Const Vital Signs: 07/06/22 01:58 07/06/22 02:04 07/06/22 02:16 Temperature 97.9 F Temperature Source Oral Pulse Rate 104 H Respiratory Rate 20 H Respiratory Effort Normal Non-Labored Respiratory Pattern Normal Blood Pressure 121/79 H Blood Pressure Mean 93 Pulse Ox 99 100 Oxygen Delivery Method Room Air Nasal Cannula Oxygen Flow Rate (L/min) 2 Positive well nourished and well developed General Appearance ED: well developed and NAD HEENT Reports dry mucous membranes normocephalic and atraumatic Mouth ED: Yes dry mucous membranes Mouth: dry mucous membranes Eyes PERRL, EOMs intact bilaterally and conjunctivae normal General Eye ED: Yes normal appearance of both eyes Neck no lymphadenopathy and supple Neck Narrative: No meningismus General: Negative for tenderness Chest Wall inspection of chest normal and palpation of chest normal Chest: Negative for tenderness Resp normal respiratory effort and normal air movement Effort and Inspection: symmetric chest movement; Negative for respiratory distress Cardio regular rate, regular rhythm and no murmurs Peripheral Pulses: pulses 2+ throughout GI normal to inspection, nondistended, normoactive bowel sounds and non-tender Palpation: Negative for guarding or rebound tenderness present Back/Spine no CVA tenderness and no thoracic nor lumbar tenderness Extremity normal to inspection General Extremety ED: Negative for edema or tenderness General Extremity: Negative for edema Neuro oriented x3, CN's II-XII intact bilaterally and no sensory deficits noted Sensorium / Orientation: awake and alert Skin no rashes or lesions noted and no wounds MDM MDM MDM Narrative Medical decision making narrative: Interventions / MDM: Differential diagnosis: Carbon monoxide exposure, near syncope, cardiac dysrhythmia, dehydration, electrolyte abnormalities Diagnosis considered but do not suspect: N/A My EKG interpretation: Sinus rate of 88, PACs noted, no ST or T wave changes QTc 440. Imaging independently reviewed and interpreted by myself: N/A External documents reviewed: Review of EMS run report, they had a documented CL of 15 on their arrival and the patient, during transport down to 10, then 9. Test considered but not ordered:N/A ED course: Finger carboxyhemoglobin oximetry was 5%. 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 She is dry mucosal membranes. EKG labs and fluids will be given. Will place on oxygen. Re-evaluation: 0240: Headache improvement on oxygen. EKG normal labs normal hemoglobin 13.4. Electrolytes normal creatinine 0.82. Fluids are running at this time. Her glucose in the lab was 118. 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 Patient clinically feeling better ambulated no return of symptoms. He has potential likely orthostasis with dehydration clinically. She will continue oral fluids at home. Outpatient follow-up with return precautions. Patient declines following this visit for work-related incident. Work note for the night will be given. All questions were answered. Return precautions. Disposition discussed with patient/family/significant other: Patient Case discussed with consulting clinician: N/A Lab Data Attestation: I reviewed the patient's lab results. Labs: Laboratory Results - last 24 hr 07/06/22 07/06/22 02:14 02:14 WBC 9.9 RBC 4.95 Hgb 13.4 Hct 43.6 MCV 88.1 MCH 27.1 MCHC 30.7 L RDW Std Deviation 40.2 RDW Coeff of Pb 12.5 Plt Count 311 MPV 9.2 Immature Gran % (Auto) 0.300 Neut % (Auto) 79.6 H Lymph % (Auto) 13.9 L [place] % (Auto) 4.5 Eos % (Auto) 1.3 Baso % (Auto) 0.4 Absolute Neuts (auto) 7.9 H Absolute Lymphs (auto) 1.38 Nucleated RBC % 0 Sodium 136 Potassium 3.6 Chloride 105 Carbon Dioxide 29.0 Anion Gap 2 L BUN 12 Creatinine 0.80 Estim Creat Clear Calc 74.02 Est GFR (MDRD) Af Amer 97 Est GFR (MDRD) Non-Af 80 BUN/Creatinine Ratio 15.0 Glucose 118 H Calcium 10.7 H Discharge Plan Triage Chief Complaint: Dizziness ED Provider: Alex Pereira Dx/Rx/DC Orders Clinical Impression: Near syncope, Headache, Dehydration Instructions: ED Dehydration (Adult), ED Near-Fainting, Uncertain Cause Prescriptions: No Action buspirone 5 mg tablet 5 mg PO DAILY ferrous sulfate [FeroSul] 325 mg (65 mg iron) tablet 325 mg PO DAILY potassium chloride 10 mEq tablet extended release 10 meq PO DAILY albuterol sulfate [Ventolin HFA] 90 mcg/actuation HFA aerosol inhaler 2 puff inhalation Q6H PRN (Reason: Shortness Of Breath) fluticasone furoate-vilanterol [Breo Ellipta] 100-25 mcg/dose blister with device 1 inh inhalation DAILY metoprolol succinate [Toprol XL] 50 mg tablet extended release 24 hr 50 mg PO DAILY Qty: 90 3RF simvastatin 20 MG tablet 20 mg PO QHS gabapentin [Neurontin] 300 MG capsule 300 mg PO DAILY levetiracetam [Keppra] 750 MG tablet 750 mg PO BID omeprazole 20 MG capsule 20 mg PO DAILY Qty: 30 0RF azithromycin 250 MG tablet 250 mg PO UD Qty: 1 0RF Rx Instructions: TAKE 2 TABLETS 1ST DAY THEN 1 TABLET DAILY FOR NEXT 4 DAYS. furosemide [Lasix] 40 mg tablet 40 mg PO DAILY Qty: 90 3RF Stand Alone Forms: ED Work / School Excuse Primary Care Provider: Stephany Livingston Referrals: Stephany Livingston MD [Primary Care Provider] - 3-5 Days Activity Restrictions/Additional Instructions: EKG labs normal. Clinical dehydration improved with fluids. Carbon monoxide levels checked at your work facility and was negative. Disposition Disposition: Home, Self Care
[2022-07-06 02:16] VITALS: O2SAT 100
[2022-07-06] MEDS: 0.9% Normal Saline 1,000 ML 1000 ML IV (02:18)
[2022-07-06 02:19] LABS: Absolute Lymphocyte Count 1.38 X10^3/uL (0.83-4.51); Absolute Neutrophil Count 7.9 X10^3/uL (2.0-7.7); Basophil# 0.04 X10^3/uL; Basophil% 0.4 % (0-1); Eosinophil# 0.13 X10^3/uL; Eosinophils% 1.3 % (0-5); Hematocrit 43.6 % (37-47); Hemoglobin 13.4 g/dL (12.0-15.0); Lymphocyte # 1.38 X10^3/ul (0.83-4.51); Lymphocyte % 13.9 % (19-41); Mean Corp Hgb Conc 30.7 g/dL (32-36); Mean Corpuscular Hgb 27.1 pg (27.0-32.0); Mean Corpuscular Volume 88.1 fL (81-99); Mean Platelet Vol. 9.2 fl (6.2-12.0); Monocyte# 0.45 X10^3/uL; Monocyte% 4.5 % (0-10); NRBC Flagged by Analyzer 0 % (0-5); Neutrophil # 7.88 X10^3/uL (2.7-7.7); Neutrophil % 79.6 % (47-70); Platelet Count 311 K/mm3 (150-450); RBC Distribution Width CV 12.5 % (11.6-14.6); RBC Distribution Width SD 40.2 fl (35.1-43.9); Red Blood Count 4.95 M/mm3 (4.2-5.4); White Blood Count 9.9 K/mm3 (4.4-11.0)
[2022-07-06 02:32] LABS: Anion Gap 2 (5-15); BUN 12 mg/dL (7-18); Calcium,Total 10.7 mg/dL (8.5-10.1); Chloride 105 mmol/L (98-107); EST Glomerular Filtration Rate 80 mL/min (>60); Est Glom Filt Rate - Afr Amer 97 mL/min (>60); Estimated Creatinine Clearance 74.02 ml/min; Glucose 118 mg/dL (74-106); Potassium 3.6 mmol/L (3.5-5.1); Sodium Level 136 mmol/L (136-145)
[2022-07-06 04:05] VITALS: BP 134/68; PULSE 84; RESP 16; O2SAT 100
== END 2022-07-06 04:06 | disposition home or self-care (01) ==
PROVIDERS: Emergency Provider Emergency Medicine; PCP Internal Medicine; Visit Provider Emergency Medicine
DX: R55 Syncope and collapse (principal); J44.9 Chronic obstructive pulmonary disease, unspecified; G40.909 Epilepsy, unspecified, not intractable, without status epilepticus; E11.9 Type 2 diabetes mellitus without complications; E86.0 Dehydration; I10 Essential (primary) hypertension; F17.220 Nicotine dependence, chewing tobacco, uncomplicated; R51.9 Headache, unspecified; Z79.899 Other long term (current) drug therapy; J45.909 Unspecified asthma, uncomplicated; Z79.51 Long term (current) use of inhaled steroids
CPT/HCPCS: 80048; 85025; 93005; 96360; 99285; J7030; A4216

== ENCOUNTER 2022-10-22 11:49 | Emergency (ER) | payer OTHER, MEDICAID, SELFPAY ==
[2022-10-22 11:49] VITALS: BP 117/83; PULSE 86; RESP 14; TEMP 36.3; O2SAT 100; BMI 33.5
[2022-10-22] MEDS: Ondansetron 4 MG/2 ML Vial IV (12:48)
[2022-10-22] MEDS: 0.9% Normal Saline 1,000 ML 1000 ML IV (12:48)
[2022-10-22 12:58] LABS: Absolute Lymphocyte Count 1.51 X10^3/uL (0.83-4.51); Basophil# 0.04 X10^3/uL; Basophil% 0.5 % (0-1); Eosinophil# 0.22 X10^3/uL; Eosinophils% 2.7 % (0-5); Hematocrit 39.2 % (37-47); Hemoglobin 12.4 g/dL (12.0-15.0); Lymphocyte # 1.51 X10^3/ul (0.83-4.51); Lymphocyte % 18.4 % (19-41); Mean Corp Hgb Conc 31.6 g/dL (32-36); Mean Corpuscular Hgb 28.6 pg (27.0-32.0); Mean Corpuscular Volume 90.5 fL (81-99); Mean Platelet Vol. 9.2 fl (6.2-12.0); Monocyte# 0.42 X10^3/uL; Monocyte% 5.1 % (0-10); NRBC Flagged by Analyzer 0 % (0-5); Neutrophil % 73.1 % (47-70); Platelet Count 277 K/mm3 (150-450); RBC Distribution Width CV 12.4 % (11.6-14.6); RBC Distribution Width SD 41.1 fl (35.1-43.9); Red Blood Count 4.33 M/mm3 (4.2-5.4); White Blood Count 8.2 K/mm3 (4.4-11.0)
[2022-10-22 13:17] LABS: ALB/GLOB Ratio 0.8 RATIO (0.9-2.4); AST(SGOT) 20 U/L (15-37); Alanine Aminotransfer ALT/SGPT 21 U/L (13-56); Albumin, Serum 3.1 g/dL (3.2-5.0); Alkaline Phosphatase 118 U/L (45-117); Anion Gap 3 (5-15); BUN 9 mg/dL (7-18); BUN/Creat Ratio 10.5 RATIO (10-20); Calcium,Total 10.1 mg/dL (8.5-10.1); Chloride 106 mmol/L (98-107); Creatinine, Serum 0.86 mg/dL (0.55-1.02); EST Glomerular Filtration Rate 73 mL/min (>60); Est Glom Filt Rate - Afr Amer 89 mL/min (>60); Estimated Creatinine Clearance 65.33 ml/min; Glucose 93 mg/dL (74-106); Lipase 41 U/L (13-75); Potassium 3.8 mmol/L (3.5-5.1); Protein, Total 7.1 g/dL (6.4-8.2); Sodium Level 139 mmol/L (136-145)
--- NOTE | 2022-10-22 13:22 | ED.VIS.GI ---
HPI HPI - GI History of Present Illness Chief Complaint: Nausea/Vomiting Informant: patient Nausea/Vomiting/Emesis GI Symptom: Positive for Nausea and Vomiting Quality: Positive for Nonbilious; Negative for Blood streaks, Coffee ground or Hematemesis Episodes: 1 Diarrhea/Melena/Hematochezia GI Symptom: Negative for Diarrhea, Melena or Hematochezia Stool Quality: Positive for Loose Associated Symptoms Associated Symptoms: Positive for Frequency; Negative for Dysuria or Hematuria Narrative Narrative: Patient presents with nausea and vomiting that began yesterday. Patient states she only vomited once yesterday. Patient states it was stomach contents. Patient denies any hematemesis or coffee-ground emesis. Patient states she has had some loose stools but denies any watery diarrhea. Patient denies any melena or hematochezia. Patient admits to some urinary frequency but denies any dysuria or hematuria. Patient states her last menstrual period was approximate 1 week ago. Patient denies any abdominal pain. Patient denies any fevers but admits to some subjective chills. [facility] Medical History (Updated 10/22/22 @ 14:[address] Gurdeep Minor, DO) Asthma COPD (chronic obstructive pulmonary disease) Epilepsy Essential hypertension History of CVA (cerebrovascular accident) (2002) History of heart attack Type 2 diabetes mellitus Home Medications gabapentin 300 mg capsule (Neurontin) 300 mg PO DAILY 01/26/17 [History Last Taken Unknown] levetiracetam 750 mg tablet (Keppra) 750 mg PO BID 01/26/17 [History Last Taken Unknown] omeprazole 20 mg capsule,delayed release 20 mg PO DAILY #30 caps 01/26/17 [Rx Last Taken Unknown] simvastatin 20 mg tablet 20 mg PO QHS 01/26/17 [History Last Taken Unknown] azithromycin 250 mg tablet 250 mg PO UD ##1 09/11/17 [Rx Last Taken Unknown] albuterol sulfate 90 mcg/actuation aerosol inhaler (Ventolin HFA) 2 puff inhalation Q6H PRN Shortness Of Breath 10/03/21 [History Last Taken Unknown] buspirone 5 mg tablet 5 mg PO DAILY 10/03/21 [History Last Taken Unknown] ferrous sulfate 325 mg (65 mg iron) tablet (FeroSul) 325 mg PO DAILY 10/03/21 [History Last Taken Unknown] fluticasone furoate 100 mcg-vilanterol 25 mcg/dose inhalation powder (Breo Ellipta) 1 inh inhalation DAILY 10/03/21 [History Last Taken Unknown] metoprolol succinate 50 mg tablet,extended release 24 hr (Toprol XL) 50 mg PO DAILY #90 tabs 10/03/21 [Rx Last Taken Unknown] potassium chloride 10 mEq tablet,extended release 10 meq PO DAILY 10/03/21 [History Last Taken Unknown] furosemide 40 mg tablet (Lasix) 40 mg PO DAILY #90 tabs 01/01/22 [Rx Last Taken Unknown] ondansetron 4 mg disintegrating tablet 4 mg PO Q8H PRN PRN Nausea #10 tabs 10/22/22 [Rx Last Taken Unknown] Allergy/AdvReac Type Severity Reaction Status Date / Time Latex, Natural Rubber Allergy Rash Verified 10/22/22 11:51 Penicillins [PCN] AdvReac Nausea/Vom/ Verified 10/22/22 11:51 Diarrhea Surgical History (Updated 10/22/22 @ 13:[address] Gurdeep Minor DO) History of section History of cholecystectomy History of left heart catheterization (12/11/16) Social History household members: none Smoking Status: Current every day smoker tobacco type: smokeless tobacco Smokeless tobacco user: chewing tobacco ROS ROS ED Constitutional Constitutional ED: Reports chills and subjective; Denies fever(s) Eyes Eyes: Denies blurry vision or change in vision ENT ENT ED: Denies rhinorrhea or sore throat Cardiovascular Cardiovascular: Denies chest pain or palpitations Respiratory/Chest Respiratory/Chest: Denies cough or dyspnea Gastrointestinal Gastrointestinal: Reports nausea and vomiting; Denies abdominal pain or melena Genitourinary Genitourinary ED: Reports urinary frequency; Denies dysuria or hematuria Musculoskeletal Musculoskeletal: Reports back pain; Denies neck pain Integumentary Denies abscess or rash Neurologic Neurologic: Denies headache(s) or weakness Allergic/Immunologic Allergic/Immunologic ED: Denies mouth swelling or urticaria EXAM Physical Exam Const Vital Signs: 10/22/22 11:49 Temperature 97.3 F L Temperature Source Temporal Pulse Rate 86 Respiratory Rate 14 Blood Pressure 117/83 H Blood Pressure Mean 94 Pulse Ox 100 Oxygen Delivery Method Room Air Positive well nourished and well developed General Appearance ED: well developed and NAD HEENT Reports moist mucous membranes Neck supple and no JVD Resp normal respiratory effort and clear to auscultation bilaterally Cardio regular rate, regular rhythm and no murmurs GI normal to inspection, nondistended, normoactive bowel sounds and non-tender Palpation: soft Extremity normal to inspection General Extremety ED: Negative for edema or tenderness General Extremity: Negative for edema Neuro oriented x3, CN's II-XII intact bilaterally and no sensory deficits noted Sensorium / Orientation: alert Motor Exam: strength 5/5 throughout Psych mental status grossly normal Skin no rashes or lesions noted MDM MDM MDM Narrative Medical decision making narrative: Differential diagnosis includes viral illness, gastritis, enteritis, pancreatitis, urinary tract infection, dehydration, electrolyte abnormality, and pyelonephritis. CBC will be obtained to assess for leukocytosis and anemia. Comprehensive metabolic profile will be obtained to assess for electrolyte abnormality, renal function, and hepatic function. Lipase will be obtained to assess for pancreatitis. Urinalysis will be obtained to assess for urinary tract infection or hematuria. Lab Data Attestation: I reviewed the patient's lab results. Lab results narrative: CBC was reviewed and was within normal limits. Comprehensive metabolic profile was reviewed and was essentially within normal limits. Lipase was reviewed and was normal. Urinalysis was reviewed. Leukocyte esterase was 100. There were 0-5 white blood cells noted. There is no bacteria noted. Nitrates were negative. Labs: Laboratory Results - last 24 hr 10/22/22 10/22/22 12:50 13:20 WBC 8.2 RBC 4.33 Hgb 12.4 Hct 39.2 MCV 90.5 MCH 28.6 MCHC 31.6 L RDW Std Deviation 41.1 RDW Coeff of Pb 12.4 Plt Count 277 MPV 9.2 Immature Gran % (Auto) 0.200 Neut % (Auto) 73.1 H Lymph % (Auto) 18.4 L [place] % (Auto) 5.1 Eos % (Auto) 2.7 Baso % (Auto) 0.5 Absolute Neuts (auto) 6.0 Absolute Lymphs (auto) 1.51 Nucleated RBC % 0 Sodium 139 Potassium 3.8 Chloride 106 Carbon Dioxide 30.0 Anion Gap 3 L BUN 9 Creatinine 0.86 Estim Creat Clear Calc 65.33 Est GFR (MDRD) Af Amer 89 Est GFR (MDRD) Non-Af 73 BUN/Creatinine Ratio 10.5 Glucose 93 Calcium 10.1 Total Bilirubin 0.40 AST 20 ALT 21 Alkaline Phosphatase 118 H Total Protein 7.1 Albumin 3.1 L Globulin 4.0 Albumin/Globulin Ratio 0.8 L Lipase 41 Urine Color Yellow Urine Clarity Cloudy Urine pH 7.0 Ur Specific [place] 1.015 Urine Protein Negative Urine Glucose (UA) Normal Urine Ketones Negative Urine Occult Blood Negative Urine Nitrite Negative Urine Bilirubin Negative Urine Urobilinogen Normal Ur Leukocyte Esterase 100 H Urine RBC 0 SEEN Urine WBC 0-5 SEEN Ur Squamous Epith Cells 0-5 SEEN Amorphous Sediment 1+ Urine Bacteria 0 SEEN Urine Mucus 0 SEEN Treatment and Re-Evaluation :: Patient was given IV fluids and Zofran. Patient is feeling somewhat better on reevaluation. Patient was advised of her findings. Patient was given a prescription for Zofran. Patient was instructed to start with a liquid diet and advance to a bland diet and then to a regular diet if she feels better. Patient was instructed to follow-up with her primary care physician in 5 to 7 days. Patient understood and was agreeable with the plan. All questions were answered. Discharge Plan Triage Chief Complaint: Nausea/Vomiting ED Provider: Gurdeep Minor Dx/Rx/DC Orders Clinical Impression: Nausea and vomiting, Essential hypertension Instructions: ED Vomiting (Adult) Prescriptions: New ondansetron [ondansetron] 4 mg tablet,disintegrating 4 mg PO Q8H PRN PRN (Reason: Nausea) Qty: 10 0RF No Action buspirone 5 mg tablet 5 mg PO DAILY ferrous sulfate [FeroSul] 325 mg (65 mg iron) tablet 325 mg PO DAILY potassium chloride 10 mEq tablet extended release 10 meq PO DAILY albuterol sulfate [Ventolin HFA] 90 mcg/actuation HFA aerosol inhaler 2 puff inhalation Q6H PRN (Reason: Shortness Of Breath) fluticasone furoate-vilanterol [Breo Ellipta] 100-25 mcg/dose blister with device 1 inh inhalation DAILY metoprolol succinate [Toprol XL] 50 mg tablet extended release 24 hr 50 mg PO DAILY Qty: 90 3RF simvastatin 20 MG tablet 20 mg PO QHS gabapentin [Neurontin] 300 MG capsule 300 mg PO DAILY levetiracetam [Keppra] 750 MG tablet 750 mg PO BID omeprazole 20 MG capsule 20 mg PO DAILY Qty: 30 0RF azithromycin 250 MG tablet 250 mg PO UD Qty: 1 0RF Rx Instructions: TAKE 2 TABLETS 1ST DAY THEN 1 TABLET DAILY FOR NEXT 4 DAYS. furosemide [Lasix] 40 mg tablet 40 mg PO DAILY Qty: 90 3RF Primary Care Provider: Stephany Livingston Referrals: Stephany Livingston MD [Primary Care Provider] - 5-7 Days Disposition Disposition: Home, Self Care
[2022-10-22 13:28] LABS: Bacteria 0 SEEN /hpf (None Seen); Mucous, Urine 0 SEEN /hpf (<or=2+); Red Blood Cells-Urine 0 SEEN /hpf (0-5)
[2022-10-22 13:33] LABS: Color, Urine Yellow (Yellow); Glucose, Dipstick Normal (Normal); Ketone-Dipstick Negative (Negative); Leukocyte Esterase-Dipstick 100 /ul (Negative); Nitrite-Dipstick Negative (Negative); Occult Blood-Urine Negative /ul (Negative); Protein-Dipstick Negative (Negative); Specific Gravity, Urine 1.015 (1.002-1.030); Urine Bilirubin Dipstick Negative (Negative); Urine Clarity Cloudy (Clear); Urine Urobilinogen Normal (Normal)
[2022-10-22 13:41] LABS: Amorphous Sediment 1+; Squamous Epithelial Cells - UA 0-5 SEEN /hpf (5-10); White Blood Cells 0-5 SEEN /hpf (0-5)
== END 2022-10-22 14:14 | disposition home or self-care (01) ==
PROVIDERS: Emergency Provider Emergency Medicine; PCP Internal Medicine; Visit Provider Emergency Medicine
DX: R11.2 Nausea with vomiting, unspecified (principal); J44.9 Chronic obstructive pulmonary disease, unspecified; G40.909 Epilepsy, unspecified, not intractable, without status epilepticus; E11.9 Type 2 diabetes mellitus without complications; I10 Essential (primary) hypertension; R35.0 Frequency of micturition; F17.220 Nicotine dependence, chewing tobacco, uncomplicated; Z79.899 Other long term (current) drug therapy; I25.2 Old myocardial infarction; Z86.73 Personal history of transient ischemic attack (TIA), and cerebral infarction without residual deficits
CPT/HCPCS: 80053; 81001; 83690; 85025; 96361; 96374; 99284; J7030; A4216; J2405

== ENCOUNTER 2023-01-07 19:24 | Emergency (ER) | payer OTHER, MEDICAID, SELFPAY ==
[2023-01-07 19:25] VITALS: BP 173/113; PULSE 89; RESP 16; TEMP 36; O2SAT 100; BMI 34.4
[2023-01-07 19:39] VITALS: BP 137/88; PULSE 107; RESP 16; O2SAT 99
--- NOTE | 2023-01-07 19:59 | CT_ITS ---
No severe stenosis, pseudoaneurysm negative STUDY: CT BRAIN WITHOUT CONTRAST REASON FOR EXAM: Female, 52 years old. confusion RADIATION DOSAGE (If Supplied By Facility): CTDIvol = ( 44.99 ) mGy, DLP = ( 796.11 ) mGycm TECHNIQUE: Transaxial CT imaging of the brain was performed without administration of intravenous contrast material. Individualized dose optimization techniques were used for this CT. COMPARISON: 07/22/2016. FINDINGS: Calcified nodule at the level of the right anterior scalp, measuring 1.6 cm, previously measuring 0.7 cm. Otherwise unremarkable soft tissue structures. Normal calvarium. Normal size ventricles and extra-axial spaces for the patient''s age. Normal white matter tracts of the cerebral hemispheres. Normal basal ganglia and thalami. Normal brainstem. Normal cerebellum. There is no intracranial hemorrhage. There are no findings of an acute ischemic infarction. Trace mucosal thickening involving the bilateral ethmoids, otherwise clear paranasal sinuses. Normal bilateral mastoids. CT/Brain/Head without Contrast IMPRESSION: Calcified nodularity within the right anterior scalp favoring benign process such as calcified sebaceous cyst given the location and morphology. However, due to increased in size which may be due to inflammatory changes, follow-up recommended. Clinical correlation recommended Normal CT brain with no acute intracranial process seen. Electronically Signed: Oksana Reid MD at 21:59 EDT ,
--- NOTE | 2023-01-07 20:01 | EDS_ITS ---
HPI History of Present Illness Chief Complaint: General Illness Narrative Narrative: 52-year-old female presents with memory loss and blacking out that she has had over the last 2 days. She states the last thing that she remembers was going to bed early Wednesday morning, and then waking up today. Reportedly, she missed her neurology appointment, and they missed her at work, but they had reported to her house and wondered where they were. She states she is unsure why she blacked o ut but awoke on the floor this morning. She had not lost control of her bowel or bladder but is unsure if she had a seizure or syncopal episode reportedly. She presents to the emergency department wanting to be checked out. [facility] Medical History Asthma COPD (chronic obstructive pulmonary disease) Epilepsy Essential hypertension History of CVA (cerebrovascular accident) (2002) History of heart attack Type 2 diabetes mellitus Home Medications gabapentin 300 mg capsule (Neurontin) 300 mg PO 4X/DAY 01/26/17 [History Last Taken Unknown] levetiracetam 750 mg tablet (Keppra) 750 mg PO BID 01/26/17 [History Last Taken Unknown] omeprazole 20 mg capsule,delayed release 20 mg PO DAILY #30 caps 01/26/17 [Rx Last Taken Unknown] simvastatin 20 mg tablet 20 mg PO QHS 01/26/17 [History Last Taken Unknown] albuterol sulfate 90 mcg/actuation aerosol inhaler (Ventolin HFA) 2 puff inhalation Q6H PRN Shortness Of Breath 10/03/21 [History Last Taken Unknown] buspirone 5 mg tablet 5 mg PO DAILY 10/03/21 [History Last Taken Unknown] ferrous sulfate 325 mg (65 mg iron) tablet (FeroSul) 325 mg PO DAILY 10/03/21 [History Last Taken Unknown] fluticasone furoate 100 mcg-vilanterol 25 mcg/dose inhalation powder (Breo Ellipta) 1 inh inhalation DAILY 10/03/21 [History Last Taken Unknown] metoprolol succinate 50 mg tablet,extended release 24 hr (Toprol XL) 50 mg PO DAILY #90 tabs 10/03/21 [Rx Last Taken Unknown] potassium chloride 10 mEq tablet,extended release 10 meq PO DAILY 10/03/21 [History Last Taken Unknown] furosemide 40 mg tablet (Lasix) 40 mg PO DAILY #90 tabs 01/01/22 [Rx Last Taken Unknown] ondansetron 4 mg disintegrating tablet 4 mg PO Q8H PRN PRN Nausea #10 tabs 10/22/22 [Rx Last Taken Unknown] Allergy/AdvReac Type Severity Reaction Status Date / Time Latex, Natural Rubber Allergy Rash Verified 01/07/23 19:27 Penicillins [PCN] AdvReac Nausea/Vom/ Verified 01/07/23 19:27 Diarrhea Surgical History History of section History of cholecystectomy History of left heart catheterization (12/11/16) Social History household members: none Smoking Status: Current every day smoker tobacco type: smokeless tobacco Smokeless tobacco user: chewing tobacco ROS ROS ED ROS Narrative Constitutional: No fever, no chills. HEENT: No sore throat. No neck pain. No loss of vision. No rhinorrhea. Cardiovascular: No chest pain. No palpitations. No pedal edema. Respiratory: No cough, no shortness of breath. Abdominal: No abdominal pain. No nausea. No vomiting. Genitourinary: No dysuria. No hematuria. Musculoskeletal: No myalgias. No arthralgias. Neurologic: Positive headaches. No dizziness. No lightheadedness. Positive syncope versus seizure. Positive memory loss of last 48 hours. Skin: No rash. No change in color. Psychiatric: No depression. No anxiety. EXAM Physical Exam Narrative Exam Narrative: Afebrile. Vital signs noted. HEENT: Normocephalic. Atraumatic. PERRL, EOMI. Neck soft and supple. No point tenderness or step off. Cardiovascular: Regular rate and rhythm. No murmurs, rubs, or gallops appreciated. Respiratory: No tachypnea. Lungs clear to auscultation bilaterally. Gastrointestinal: Abdomen soft, nontender, with normoactive bowel sounds. No rebound or guarding. Neurological: Awake. Alert. Nonfocal, nonlateralizing. Skin: No rash. Normal color. No pallor. Musculoskeletal: No pedal edema. Full range of motion extremities. Const Vital Signs: 01/07/23 19:25 01/07/23 19:39 01/07/23 19:40 Temperature 96.8 F L Temperature Source Temporal Pulse Rate 89 107 H Respiratory Rate 16 16 Respiratory Effort Normal Non-Labored Respiratory Pattern Normal Blood Pressure 173/113 H 137/88 H Blood Pressure Mean 133 104 Pulse Ox 100 99 Oxygen Delivery Method Room Air Room Air 01/07/23 20:57 Temperature Temperature Source Pulse Rate 86 Respiratory Rate 17 Respiratory Effort Respiratory Pattern Blood Pressure 128/78 H Blood Pressure Mean 94 Pulse Ox 97 Oxygen Delivery Method Room Air MDM MDM MDM Narrative Medical decision making narrative: I reviewed her prior records. She does have epilepsy and takes Keppra 750 mg twice a day. I will send a Keppra level but this is a send out. Comprehensive work-up was pursued. With concern for syncope EKG will be obtained along with 1 single troponin. She may have a closed head injury from waking up on the floor given her headache, or she may be postictal/prolonged. CT of the brain was obtained. I will obtain baseline laboratories including CBC, and CMP as well. Her urine will be sent to look for signs of infection along with urine drug screen and alcohol level. There is been no seizure activity in the ED currently. She will be bolused normal saline 1 L intravenously as well. EKG was obtained and interpreted by myself independently as normal sinus rhythm at 99 bpm without ectopy or acute ST changes. No STEMI. I reviewed her laboratory work and her CBC is pretty unremarkable with a normal white count of 7.2, hemoglobin stable at 11.8, platelet count normal at 292. CMP shows a potassium low at 3.2 which was replaced orally with 40 mill equivalents. High- sensitivity troponin was 14. I do not feel she requires serial enzymes. CT of the brain shows no acute process. Chest x-ray in 1 view interpreted by myself independently shows no evidence of an acute process, no pneumonia or pneumothorax. I reviewed the radiology report which confirms my independent interpretation. Ethyl alcohol is negative. Urine for drugs of abuse was positive for MDMA and amphetamines but this may be secondary to one of her medications. She is on buspirone. Keppra level was sent and is pending. Upon repeat examination she states she feels improved. She asked for a note to be off work today. I feel that she does not require observation or admission and that she can follow-up with her neurologist and her primary care provider. While I am unsure as to her reported loss of time and confusion, I do feel she can be discharged and that she does not require admission. Disposition is discharged home in stable condition. Return instructions to the emergency department were reviewed. History & Record Review Discussion w/independent historian: Patient Additional record(s) reviewed:: Prior ED visit Lab Data Attestation: I reviewed the patient's lab results. Labs: Laboratory Results - last 24 hr 01/07/23 01/07/23 01/07/23 20:20 20:20 20:43 WBC Cancelled 7.2 Corrected WBC Cancelled RBC Cancelled 4.26 Hgb Cancelled 11.8 L Hct Cancelled 35.6 L MCV Cancelled 83.6 MCH Cancelled 27.7 MCHC Cancelled 33.1 RDW Std Deviation Cancelled 37.5 RDW Coeff of Pb Cancelled 12.5 Plt Count Cancelled 292 MPV Cancelled 8.9 Immature Gran % (Auto) Cancelled 0.400 Neut % (Auto) Cancelled 68.4 Lymph % (Auto) Cancelled 21.8 Alexander % (Auto) Cancelled 8.0 Eos % (Auto) Cancelled 1.1 Baso % (Auto) Cancelled 0.3 Absolute Neuts (auto) Cancelled 4.9 Absolute Lymphs (auto) Cancelled 1.56 Total Counted Cancelled Neutrophils % (Manual) Cancelled Band Neutrophils % Cancelled Lymphocytes % (Manual) Cancelled Monocytes % (Manual) Cancelled Eosinophils % (Manual) Cancelled Basophils % (Manual) Cancelled Metamyelocytes % Cancelled Myelocytes % Cancelled Promyelocytes % Cancelled Blast Cells % Cancelled Plasma Cell % (Manual) Cancelled Other Cells % Cancelled Nucleated RBC % Cancelled 0 Nucleated RBCs/100 WBC Cancelled Differential Comment Cancelled Diff Path Review Cancelled Hypersegmented Neuts Cancelled Atypical Lymphocytes Cancelled Reactive Lymphocytes Cancelled Smudge Cells Cancelled Toxic Granulation Cancelled Toxic Vacuolation Cancelled Dohle Bodies Cancelled Arturo Rods Cancelled Platelet Estimate Cancelled Plt Morphology Comment Cancelled RBC Morphology Cancelled Cancelled Polychromasia Cancelled Hypochromasia Cancelled Poikilocytosis Cancelled Basophilic Stippling Cancelled Anisocytosis Cancelled Microcytosis Cancelled Macrocytosis Cancelled Spherocytes Cancelled Sickle Cells Cancelled Target Cells Cancelled Tear Drop Cells Cancelled Ovalocytes Cancelled Stomatocytes Cancelled Devi-[place] Bodies Cancelled [place] Cells Cancelled Bite Cells Cancelled Crenated Cell Cancelled Acanthocytes (Spur) Cancelled Rouleaux Cancelled Schistocytes Cancelled Sodium 138 Potassium 3.2 L Chloride 103 Carbon Dioxide 30.0 Anion Gap 5 BUN 14 Creatinine 0.82 Estim Creat Clear Calc 68.51 Est GFR (MDRD) Af Amer 94 Est GFR (MDRD) Non-Af 77 BUN/Creatinine Ratio 17.1 Glucose 93 Calcium 10.4 H Total Bilirubin 0.50 AST 17 ALT 29 Alkaline Phosphatase 111 Troponin I High Sens 14 Total Protein 7.2 Albumin 3.4 Globulin 3.8 Albumin/Globulin Ratio 0.9 Urine Color Urine Clarity Urine pH Ur Specific [place] Urine Protein Urine Glucose (UA) Urine Ketones Urine Occult Blood Urine Nitrite Urine Bilirubin Urine Urobilinogen Ur Leukocyte Esterase Urine RBC Urine WBC Ur Squamous Epith Cells Urine Bacteria Urine Mucus Urine Opiates Screen Urine Methadone Screen Ur Barbiturates Screen Ur Phencyclidine Scrn Ur Amphetamines Screen MDMA (Ecstasy) Screen U Benzodiazepines Scrn Urine Cocaine Screen U Cannabinoids Screen Ur Drug Screen Comment Ethyl Alcohol < 3.0 01/07/23 21:05 WBC Corrected WBC RBC Hgb Hct MCV MCH MCHC RDW Std Deviation RDW Coeff of Pb Plt Count MPV Immature Gran % (Auto) Neut % (Auto) Lymph % (Auto) Alexander % (Auto) Eos % (Auto) Baso % (Auto) Absolute Neuts (auto) Absolute Lymphs (auto) Total Counted Neutrophils % (Manual) Band Neutrophils % Lymphocytes % (Manual) Monocytes % (Manual) Eosinophils % (Manual) Basophils % (Manual) Metamyelocytes % Myelocytes % Promyelocytes % Blast Cells % Plasma Cell % (Manual) Other Cells % Nucleated RBC % Nucleated RBCs/100 WBC Differential Comment Diff Path Review Hypersegmented Neuts Atypical Lymphocytes Reactive Lymphocytes Smudge Cells Toxic Granulation Toxic Vacuolation Dohle Bodies Arturo Rods Platelet Estimate Plt Morphology Comment RBC Morphology Polychromasia Hypochromasia Poikilocytosis Basophilic Stippling Anisocytosis Microcytosis Macrocytosis Spherocytes Sickle Cells Target Cells Tear Drop Cells Ovalocytes Stomatocytes Devi-[place] Bodies [place] Cells Bite Cells Crenated Cell Acanthocytes (Spur) Rouleaux Schistocytes Sodium Potassium Chloride Carbon Dioxide Anion Gap BUN Creatinine Estim Creat Clear Calc Est GFR (MDRD) Af Amer Est GFR (MDRD) Non-Af BUN/Creatinine Ratio Glucose Calcium Total Bilirubin AST ALT Alkaline Phosphatase Troponin I High Sens Total Protein Albumin Globulin Albumin/Globulin Ratio Urine Color Yellow Urine Clarity Clear Urine pH 6.0 Ur Specific [place] 1.020 Urine Protein 15 H Urine Glucose (UA) Normal Urine Ketones 50 H Urine Occult Blood Negative Urine Nitrite Negative Urine Bilirubin Negative Urine Urobilinogen 1 H Ur Leukocyte Esterase 100 H Urine RBC 0 SEEN Urine WBC 0-5 SEEN Ur Squamous Epith Cells 0-5 SEEN Urine Bacteria 0 SEEN Urine Mucus 0 SEEN Urine Opiates Screen NEGATIVE Urine Methadone Screen NEGATIVE Ur Barbiturates Screen NEGATIVE Ur Phencyclidine Scrn NEGATIVE Ur Amphetamines Screen POSITIVE H MDMA (Ecstasy) Screen POSITIVE H U Benzodiazepines Scrn NEGATIVE Urine Cocaine Screen NEGATIVE U Cannabinoids Screen NEGATIVE Ur Drug Screen Comment Ethyl Alcohol Radiography Diagnostic Testing: Clinical Impression(s) from Imaging Studies Brain CT 01/07/23 19:59 IMPRESSION: Calcified nodularity within the right anterior scalp favoring benign process such as calcified sebaceous cyst given the location and morphology. However, due to increased in size which may be due to inflammatory changes, follow-up recommended. Clinical correlation recommended Normal CT brain with no acute intracranial process seen. Electronically Signed: Oksana Reid MD at 21:59 EDT , Chest X-Ray 01/07/23 20:30 IMPRESSION: No acute cardiopulmonary disease. Electronically Signed: Oksana Reid MD at 22:03 EDT , Discharge Plan Triage Chief Complaint: General Illness ED Provider: Tom Gorman Dx/Rx/DC Orders Clinical Impression: Transient memory loss, Syncope and collapse Instructions: ED Confusion, ED Fainting, Uncertain Cause Prescriptions: No Action buspirone 5 mg tablet 5 mg PO DAILY ferrous sulfate [FeroSul] 325 mg (65 mg iron) tablet 325 mg PO DAILY potassium chloride 10 mEq tablet extended release 10 meq PO DAILY albuterol sulfate [Ventolin HFA] 90 mcg/actuation HFA aerosol inhaler 2 puff inhalation Q6H PRN (Reason: Shortness Of Breath) fluticasone furoate-vilanterol [Breo Ellipta] 100-25 mcg/dose blister with device 1 inh inhalation DAILY metoprolol succinate [Toprol XL] 50 mg tablet extended release 24 hr 50 mg PO DAILY Qty: 90 3RF simvastatin 20 MG tablet 20 mg PO QHS gabapentin [Neurontin] 300 MG capsule 300 mg PO 4X/DAY levetiracetam [Keppra] 750 MG tablet 750 mg PO BID omeprazole 20 MG capsule 20 mg PO DAILY Qty: 30 0RF ondansetron [ondansetron] 4 mg tablet,disintegrating 4 mg PO Q8H PRN PRN (Reason: Nausea) Qty: 10 0RF furosemide [Lasix] 40 mg tablet 40 mg PO DAILY Qty: 90 3RF Stand Alone Forms: ED Work / School Excuse Primary Care Provider: Stephany Livingston Referrals: Stephany Livingston MD [Primary Care Provider] - 3-5 Days if not improving Disposition Disposition: Home, Self Care
[2023-01-07] MEDS: 0.9% Normal Saline (1000mL) 1,000 ML 1000 ML IV (20:19)
--- NOTE | 2023-01-07 20:30 | RAD_ITS ---
STUDY: X-RAY CHEST REASON FOR EXAM: Female, 52 years old. CAD TECHNIQUE: Single AP portable view of the chest. COMPARISON: 11/14/2021. FINDINGS: The lungs are clear and expanded. There is no demonstrated pleural abnormality. Normal size heart. Normal mediastinum and jesusita. Normal visualized pulmonary arteries. Normal visualized aortic arch and descending thoracic aorta. There are diffuse degenerative changes of the visualized thoracic spine. Normal visualized ribs, clavicles, and shoulders. There is no demonstrated abnormality of the visualized soft tissue structures of the upper abdomen. RAD/Chest 1 View (Portable) IMPRESSION: No acute cardiopulmonary disease. Electronically Signed: Oksana Reid MD at 22:03 EDT ,
[2023-01-07 20:48] LABS: ALB/GLOB Ratio 0.9 RATIO (0.9-2.4); AST(SGOT) 17 U/L (15-37); Alanine Aminotransfer ALT/SGPT 29 U/L (13-56); Albumin, Serum 3.4 g/dL (3.2-5.0); Alkaline Phosphatase 111 U/L (45-117); Anion Gap 5 (5-15); BUN 14 mg/dL (7-18); BUN/Creat Ratio 17.1 RATIO (10-20); Calcium,Total 10.4 mg/dL (8.5-10.1); Chloride 103 mmol/L (98-107); Creatinine, Serum 0.82 mg/dL (0.55-1.02); EST Glomerular Filtration Rate 77 mL/min (>60); Est Glom Filt Rate - Afr Amer 94 mL/min (>60); Estimated Creatinine Clearance 68.51 ml/min; Globulin 3.8 g/dL (2.2-4.2); Glucose 93 mg/dL (74-106); Potassium 3.2 mmol/L (3.5-5.1); Protein, Total 7.2 g/dL (6.4-8.2); Sodium Level 138 mmol/L (136-145); Troponin-I HS 14 pg/mL (3.0-54.0)
[2023-01-07 20:57] VITALS: BP 128/78; PULSE 86; RESP 17; O2SAT 97
[2023-01-07 20:57] LABS: Absolute Lymphocyte Count 1.56 X10^3/uL (0.83-4.51); Absolute Neutrophil Count 4.9 X10^3/uL (2.0-7.7); Basophil# 0.02 X10^3/uL; Basophil% 0.3 % (0-1); Eosinophil# 0.08 X10^3/uL; Eosinophils% 1.1 % (0-5); Hematocrit 35.6 % (37-47); Hemoglobin 11.8 g/dL (12.0-15.0); Lymphocyte # 1.56 X10^3/ul (0.83-4.51); Lymphocyte % 21.8 % (19-41); Mean Corp Hgb Conc 33.1 g/dL (32-36); Mean Corpuscular Hgb 27.7 pg (27.0-32.0); Mean Corpuscular Volume 83.6 fL (81-99); Mean Platelet Vol. 8.9 fl (6.2-12.0); Monocyte# 0.57 X10^3/uL; NRBC Flagged by Analyzer 0 % (0-5); Neutrophil % 68.4 % (47-70); Platelet Count 292 K/mm3 (150-450); RBC Distribution Width CV 12.5 % (11.6-14.6); RBC Distribution Width SD 37.5 fl (35.1-43.9); Red Blood Count 4.26 M/mm3 (4.2-5.4); White Blood Count 7.2 K/mm3 (4.4-11.0)
[2023-01-07 21:04] LABS: Alcohol, Blood (Medical)-Serum < 3.0 mg/dL
[2023-01-07 21:16] LABS: Bacteria 0 SEEN /hpf (None Seen); Mucous, Urine 0 SEEN /hpf (<or=2+); Red Blood Cells-Urine 0 SEEN /hpf (0-5)
[2023-01-07 21:19] LABS: Color, Urine Yellow (Yellow); Glucose, Dipstick Normal (Normal); Ketone-Dipstick 50 mg/dl (Negative); Leukocyte Esterase-Dipstick 100 /ul (Negative); Nitrite-Dipstick Negative (Negative); Occult Blood-Urine Negative /ul (Negative); Protein-Dipstick 15 mg/dl (Negative); Urine Bilirubin Dipstick Negative (Negative); Urine Clarity Clear (Clear); Urine Urobilinogen 1 mg/dl (Normal)
[2023-01-07 21:28] LABS: Squamous Epithelial Cells - UA 0-5 SEEN /hpf (5-10); White Blood Cells 0-5 SEEN /hpf (0-5)
[2023-01-07 21:36] LABS: Amphetamine Urine VISTA POSITIVE (<1000 ng/mL); Barbiturate Urine VISTA NEGATIVE (< 200 ng/mL); Benzodiazepine Urine VISTA NEGATIVE (< 200 ng/mL); Cocaine Urine VISTA NEGATIVE (< 300 ng/mL); Ecstacy Urine VISTA POSITIVE (< 500 ng/mL); Methadone Urine VISTA NEGATIVE (< 300 ng/mL); PCP Urine VISTA NEGATIVE (< 25 ng/mL); THC Urine VISTA NEGATIVE (< 50 ng/mL); Vista UDS pH Range 6
[2023-01-07] MEDS: Potassium Chloride Oral Tablet 20 MEQ 40 MEQ PO (21:55)
--- NOTE | 2023-01-07 22:01 | ED.RN ---
called lab to assist with blood draw for
[2023-01-12 18:07] LABS: KEPPRA (LEVETIRACETAM) <2.0 ug/mL (10.0-40.0)
== END 2023-01-07 22:32 | disposition home or self-care (01) ==
PROVIDERS: Emergency Provider Emergency Medicine; PCP Internal Medicine; Visit Provider Emergency Medicine
DX: R55 Syncope and collapse (principal); J44.9 Chronic obstructive pulmonary disease, unspecified; G40.909 Epilepsy, unspecified, not intractable, without status epilepticus; E11.9 Type 2 diabetes mellitus without complications; I10 Essential (primary) hypertension; Z86.73 Personal history of transient ischemic attack (TIA), and cerebral infarction without residual deficits; J45.909 Unspecified asthma, uncomplicated; F17.220 Nicotine dependence, chewing tobacco, uncomplicated; Z79.899 Other long term (current) drug therapy; E87.6 Hypokalemia
CPT/HCPCS: 36415; 70450; 71045; 80053; 80177; 80307; 81001; 82077; 84484; 85025; 93005; 96360; 99284; J7030; A4216

== ENCOUNTER 2023-09-19 03:21 | Emergency (ER) | payer MEDICAID, SELFPAY ==
[2023-09-19 03:22] VITALS: BP 136/94; PULSE 56; RESP 18; TEMP 36.1; O2SAT 90; BMI 36.5
--- NOTE | 2023-09-19 03:23 | EDS_ITS ---
HPI History of Present Illness Chief Complaint: Cellulitis [facility] Medical History (Updated 09/19/23 @ 03:26 by Rachelle Newton) CKD (chronic kidney disease) History of heart attack History of CVA (cerebrovascular accident) (2002) Type 2 diabetes mellitus Essential hypertension COPD (chronic obstructive pulmonary disease) Asthma Epilepsy Home Medications ?Medication ?Instructions ?Recorded ?Last Taken ?Type gabapentin 300 mg capsule 300 mg PO 4X/DAY 01/26/17 Unknown History (Neurontin) levetiracetam 750 mg tablet 750 mg PO BID 01/26/17 Unknown History (Keppra) omeprazole 20 mg capsule,delayed 20 mg PO DAILY #30 caps 01/26/17 Unknown Rx release simvastatin 20 mg tablet 20 mg PO QHS 01/26/17 Unknown History albuterol sulfate 90 mcg/actuation 2 puff inhalation Q6H PRN 10/03/21 Unknown History aerosol inhaler (Ventolin HFA) Shortness Of Breath buspirone 5 mg tablet 5 mg PO DAILY 10/03/21 Unknown History ferrous sulfate 325 mg (65 mg 325 mg PO DAILY 10/03/21 Unknown History iron) tablet (FeroSul) fluticasone furoate 100 1 inh inhalation DAILY 10/03/21 Unknown History mcg-vilanterol 25 mcg/dose inhalation powder (Breo Ellipta) metoprolol succinate 50 mg 50 mg PO DAILY #90 tabs 10/03/21 Unknown Rx tablet,extended release 24 hr (Toprol XL) potassium chloride 10 mEq 10 meq PO DAILY 10/03/21 Unknown History tablet,extended release furosemide 40 mg tablet (Lasix) 40 mg PO DAILY #90 tabs 01/01/22 Unknown Rx ondansetron 4 mg disintegrating 4 mg PO Q8H PRN PRN Nausea #10 tabs 10/22/22 Unknown Rx tablet doxycycline hyclate 100 mg tablet 100 mg PO BID 7 days #14 tabs 09/19/23 Unknown Rx Allergy/AdvReac Type Severity Reaction Status Date / Time Latex, Natural Rubber Allergy Rash Verified 01/07/23 19:27 Penicillins (PCN) AdvReac Nausea/Vom/ Verified 01/07/23 19:27 Diarrhea Surgical History History of section History of left heart catheterization (09/29/17) History of cholecystectomy Social History household members: none Smoking Status: Current every day smoker tobacco type: smokeless tobacco Smokeless tobacco user: chewing tobacco EXAM Physical Exam Const Vital Signs: 09/19/23 03:22 Temperature 97 F L Temperature Source Temporal Pulse Rate 56 L Respiratory Rate 18 Blood Pressure 136/94 H Blood Pressure Mean 108 Pulse Ox 90 Oxygen Delivery Method Room Air [facility] [place] Narrative Medical decision making narrative: HISTORY OF PRESENT ILLNESS: 53-year-old female presents with concern for wound/red area on her left lower extremity is warm to touch. Notes this began today. No history of diabetes. Denies vomiting or fever. Notes she scratched her left lower extremity became irritated and resulting redness and warmth develop. REVIEW OF SYSTEMS: Pertinent positives: Rash Pertinent negatives: Vomiting, fever, syncope, abdominal pain PHYSICAL EXAM: Nursing triage notes reviewed, Vital signs reviewed Constitutional: please see mdm Extremities: No edema, red area on left lower extremity is warm to touch, intact pulses, compartments are soft Skin: Erythematous rash noted over the left lower extremity, no obvious fluctuance induration or crepitus. MEDICAL DECISION MAKING: Chief Complaint: Wound External records reviewed: Imaging reviewed: CT scan of the head from [address] brain with no acute intracranial process Factors affecting care: Type 2 diabetes, CVA, COPD, asthma, epilepsy Social determinants of health: none History obtained from others: EMS Consults: none [facility] Narrative: The patient was initially hemodynamically stable, afebrile and nontoxic- appearing. No signs of toxicity, sepsis or distributive shock at this time. I considered the following differential diagnosis: Cellulitis, abscess, necrotizing fasciitis Patient's physical exam was not consistent with abscess or necrotizing fasciitis. She is likely suffering from acute cellulitis. Will give anti-MRSA antibiotics in form of doxycycline for neck 7 days. Strict return precautions were discussed. The patient and/or family, caregivers express understanding. The patient and/or family, caregivers agrees with the plan. Shared decision making: I will have a discussion with the patient and or visitors regarding risk/benefits of further testing or admission. They will be made aware of of the risk/benefits inherent in this decision they will be given the opportunity to voice understanding. Total critical care time today provided was at least 0 [] minutes. This excludes separately billable procedures. Critical care time (if documented) is secondary to the patient having high probability of clinically significant/life threatening deterioration in the patient's condition which required my urgent intervention. Impression: 1. Cellulitis 2. Hx of Type 2 Diabetes Dispo: discharge This note was generated with [employer] dictation software. It may contain incorrect words, spelling, and punctuation that were not noted in review of the chart prior to signing. Discharge Plan Triage Chief Complaint: Cellulitis ED Provider: Hebert Ashley Dx/Rx/DC Orders Instructions: Cellulitis Dc Prescriptions: New doxycycline hyclate 100 mg tablet 100 mg PO BID 7 Days Qty: 14 0RF No Action buspirone 5 mg tablet 5 mg PO DAILY ferrous sulfate [FeroSul] 325 mg (65 mg iron) tablet 325 mg PO DAILY potassium chloride 10 mEq tablet extended release 10 meq PO DAILY albuterol sulfate [Ventolin HFA] 90 mcg/actuation HFA aerosol inhaler 2 puff inhalation Q6H PRN (Reason: Shortness Of Breath) fluticasone furoate-vilanterol [Breo Ellipta] 100-25 mcg/dose blister with device 1 inh inhalation DAILY metoprolol succinate [Toprol XL] 50 mg tablet extended release 24 hr 50 mg PO DAILY Qty: 90 3RF simvastatin 20 MG tablet 20 mg PO QHS gabapentin [Neurontin] 300 MG capsule 300 mg PO 4X/DAY levetiracetam [Keppra] 750 MG tablet 750 mg PO BID omeprazole 20 MG capsule 20 mg PO DAILY Qty: 30 0RF ondansetron [ondansetron] 4 mg tablet,disintegrating 4 mg PO Q8H PRN PRN (Reason: Nausea) Qty: 10 0RF furosemide [Lasix] 40 mg tablet 40 mg PO DAILY Qty: 90 3RF Primary Care Provider: Stephany Livingston Referrals: Stephany Livingston MD [Primary Care Provider] - Activity Restrictions/Additional Instructions: Thank you for trusting us with your care today! Please take Tylenol (2 pills, 650 mg), ibuprofen (2 pills, 400 mg) every 6 hours as needed for pain and fever control. Please take antibiotics to course complete. Please return to the emergency department if your symptoms change or worsen. Please follow with your primary care physician for further outpatient evaluation and management. Print Language: Mauritian
[2023-09-19] MEDS: Doxycycline 100 MG CAPSULE PO (03:39)
[2023-09-19 04:07] VITALS: BP 113/75; PULSE 100; RESP 20; TEMP 36.1; O2SAT 94
== END 2023-09-19 04:12 | disposition home or self-care (01) ==
LOC: ED 03:55
PROVIDERS: Emergency Provider Emergency Medicine; PCP Internal Medicine; Visit Provider Emergency Medicine
DX: L03.116 Cellulitis of left lower limb (principal); J44.9 Chronic obstructive pulmonary disease, unspecified; G40.909 Epilepsy, unspecified, not intractable, without status epilepticus; E11.22 Type 2 diabetes mellitus with diabetic chronic kidney disease; N18.9 Chronic kidney disease, unspecified; I12.9 Hypertensive chronic kidney disease with stage 1 through stage 4 chronic kidney disease, or unspecified chronic kidney disease; F17.220 Nicotine dependence, chewing tobacco, uncomplicated; Z79.899 Other long term (current) drug therapy; Z79.51 Long term (current) use of inhaled steroids; Z90.49 Acquired absence of other specified parts of digestive tract; Z86.73 Personal history of transient ischemic attack (TIA), and cerebral infarction without residual deficits
CPT/HCPCS: 99282

== ENCOUNTER 2023-10-19 13:00 | Emergency (ER) | payer MEDICAID, SELFPAY ==
[2023-10-19 13:01] VITALS: BP 152/104; PULSE 87; RESP 16; TEMP 36.4; O2SAT 100; BMI 32.2
--- NOTE | 2023-10-19 13:35 | EX.ED.VIS.HA ---
HPI History of Present Illness Chief Complaint: Headache Narrative Narrative: History of migraines nontraumatic headache over 2 days. Photophobia and phonophobia. Nausea vomiting x 5 no hematemesis last time was couple hours ago. Denies fevers. States feels similar migraines. She is currently not on any prophylactic migraine medications was previous on Imitrex however states her PCP stopped this. She is seeing [facility] neurologist in the past Dr. Barrientos. She was not given any medicines with them. Medicines were through her primary care offices. She states Imitrex does help her symptoms. States she had reported heart attack 2006 however no stents. Prior similar symptoms: Yes PFSH PFSH Medical History CKD (chronic kidney disease) History of heart attack History of CVA (cerebrovascular accident) (2002) Type 2 diabetes mellitus Essential hypertension COPD (chronic obstructive pulmonary disease) Asthma Epilepsy Home Medications ?Medication ?Instructions ?Recorded ?Last Taken ?Type gabapentin 300 mg capsule 300 mg PO 4X/DAY 01/26/17 Unknown History (Neurontin) levetiracetam 750 mg tablet 750 mg PO BID 01/26/17 Unknown History (Keppra) omeprazole 20 mg capsule,delayed 20 mg PO DAILY #30 caps 01/26/17 Unknown Rx release simvastatin 20 mg tablet 20 mg PO QHS 01/26/17 Unknown History albuterol sulfate 90 mcg/actuation 2 puff inhalation Q6H PRN 10/03/21 Unknown History aerosol inhaler (Ventolin HFA) Shortness Of Breath buspirone 5 mg tablet 5 mg PO DAILY 10/03/21 Unknown History ferrous sulfate 325 mg (65 mg 325 mg PO DAILY 10/03/21 Unknown History iron) tablet (FeroSul) fluticasone furoate 100 1 inh inhalation DAILY 10/03/21 Unknown History mcg-vilanterol 25 mcg/dose inhalation powder (Breo Ellipta) metoprolol succinate 50 mg 50 mg PO DAILY #90 tabs 10/03/21 Unknown Rx tablet,extended release 24 hr (Toprol XL) potassium chloride 10 mEq 10 meq PO DAILY 10/03/21 Unknown History tablet,extended release furosemide 40 mg tablet (Lasix) 40 mg PO DAILY #90 tabs 01/01/22 Unknown Rx ondansetron 4 mg disintegrating 4 mg PO Q8H PRN PRN Nausea #10 tabs 10/22/22 Unknown Rx tablet doxycycline hyclate 100 mg tablet 100 mg PO BID 7 days #14 tabs 09/19/23 Unknown Rx sumatriptan succinate 25 mg tablet 25 mg PO Q2H PRN migraine headache 10/19/23 Unknown Rx (Imitrex) #10 tabs Allergy/AdvReac Type Severity Reaction Status Date / Time Latex, Natural Rubber Allergy Rash Verified 10/19/23 13:02 Penicillins (PCN) AdvReac Nausea/Vom/ Verified 10/19/23 13:02 Diarrhea Surgical History History of section History of left heart catheterization (12/11/16) History of cholecystectomy Social History household members: none Smoking Status: Current every day smoker tobacco type: smokeless tobacco Smokeless tobacco user: chewing tobacco ROS ROS ED Constitutional Constitutional ED: Denies chills, fever(s) or sweats Eyes Eyes: Denies change in vision ENT ENT ED: Denies dysphagia or sore throat Cardiovascular Cardiovascular: Denies chest pain, leg edema, palpitations or racing heartbeat Respiratory/Chest Respiratory/Chest: Denies cough, dyspnea or dyspnea on exertion Gastrointestinal Gastrointestinal: Reports nausea and vomiting; Denies abdominal pain or diarrhea Genitourinary Genitourinary ED: Denies dysuria, hematuria or urinary frequency Musculoskeletal Musculoskeletal: Denies back pain, extremity pain or neck pain Integumentary Denies rash or wounds Neurologic Neurologic: Reports headache(s); Denies paresthesias or weakness EXAM Physical Exam Const Vital Signs: 10/19/23 13:01 10/19/23 14:51 Temperature 97.5 F L 97.5 F L Temperature Source Temporal Pulse Rate 87 92 Respiratory Rate 16 19 H Blood Pressure 152/104 H 139/74 H Blood Pressure Mean 120 95 Pulse Ox 100 100 Oxygen Delivery Method Room Air Positive well nourished and well developed Constitutional Narrative: Nontoxic General Appearance ED: well developed HEENT Reports moist mucous membranes normocephalic and atraumatic Eyes EOMs intact bilaterally and conjunctivae normal General Eye ED: Yes normal appearance of both eyes Neck no lymphadenopathy, supple and no meningeal signs General: Negative for tenderness Chest Wall Chest: Negative for tenderness Resp normal respiratory effort and normal air movement Effort and Inspection: symmetric chest movement; Negative for respiratory distress Cardio regular rate, regular rhythm and no murmurs Peripheral Pulses: pulses 2+ throughout GI normal to inspection, nondistended, normoactive bowel sounds and non-tender Palpation: Negative for guarding or rebound tenderness present Back/Spine no CVA tenderness and no thoracic nor lumbar tenderness Extremity normal to inspection General Extremety ED: Negative for edema or tenderness General Extremity: Negative for edema Neuro oriented x3, CN's II-XII intact bilaterally and no sensory deficits noted Sensorium / Orientation: awake and alert Skin no rashes or lesions noted and no wounds MDM MDM MDM Narrative Medical decision making narrative: Interventions / MDM: Differential diagnosis: Migraine headache Diagnosis considered but do not suspect: No clinical meningitis My EKG interpretation: N/A Imaging independently reviewed and interpreted by myself: N/A External documents reviewed: N/A Test considered but not ordered:N/A ED course: Nontoxic no focal neurodeficits. No meningismus findings. She reports improvement with Imitrex in the past therefore subcu Imitrex ordered. Will reevaluate. 1445: Symptoms significant proved intolerable. She had no reactions with the medications. Work note provided. Short prescription of Imitrex. Follow-up with neurology as an outpatient. All questions were answered. Re-evaluation: stable Disposition discussed with patient/family/significant other: Patient Case discussed with consulting clinician: N/A This note was generated with [employer] dictation software. It may contain incorrect words, spelling, and punctuation that were not noted in checking the note before signing. Discharge Plan Triage Chief Complaint: Headache ED Provider: Alex Pereira Dx/Rx/DC Orders Clinical Impression: Headache, migraine, Nausea & vomiting Instructions: ED, Migraine (Classical) Prescriptions: New sumatriptan succinate [Imitrex] 25 mg tablet 25 mg PO Q2H PRN (Reason: migraine headache) Qty: 10 0RF Rx Instructions: do not exceed 8 doses per 24 hrs No Action buspirone 5 mg tablet 5 mg PO DAILY ferrous sulfate [FeroSul] 325 mg (65 mg iron) tablet 325 mg PO DAILY potassium chloride 10 mEq tablet extended release 10 meq PO DAILY albuterol sulfate [Ventolin HFA] 90 mcg/actuation HFA aerosol inhaler 2 puff inhalation Q6H PRN (Reason: Shortness Of Breath) fluticasone furoate-vilanterol [Breo Ellipta] 100-25 mcg/dose blister with device 1 inh inhalation DAILY metoprolol succinate [Toprol XL] 50 mg tablet extended release 24 hr 50 mg PO DAILY Qty: 90 3RF simvastatin 20 MG tablet 20 mg PO QHS gabapentin [Neurontin] 300 MG capsule 300 mg PO 4X/DAY levetiracetam [Keppra] 750 MG tablet 750 mg PO BID omeprazole 20 MG capsule 20 mg PO DAILY Qty: 30 0RF ondansetron [ondansetron] 4 mg tablet,disintegrating 4 mg PO Q8H PRN PRN (Reason: Nausea) Qty: 10 0RF doxycycline hyclate 100 mg tablet 100 mg PO BID 7 Days Qty: 14 0RF furosemide [Lasix] 40 mg tablet 40 mg PO DAILY Qty: 90 3RF Stand Alone Forms: ED Work / School Excuse Primary Care Provider: Stephany Livingston Referrals: Stephany Livingston MD [Primary Care Provider] - Alexandre Jerome MD [Non-Staff -Ordering Privileges] - 1 Week Print Language: Cypriot Disposition Disposition: Home, Self Care Discharge Date/Time: 10/19/23 15:03
[2023-10-19] MEDS: SUMAtriptan 6 MG/0.5 ML Vial SC (14:00)
[2023-10-19 14:51] VITALS: BP 139/74; PULSE 92; RESP 19; TEMP 36.4; O2SAT 100
== END 2023-10-19 15:03 | disposition home or self-care (01) ==
PROVIDERS: Emergency Provider Emergency Medicine; PCP Internal Medicine; Visit Provider Emergency Medicine
DX: G43.909 Migraine, unspecified, not intractable, without status migrainosus (principal); J44.9 Chronic obstructive pulmonary disease, unspecified; I12.9 Hypertensive chronic kidney disease with stage 1 through stage 4 chronic kidney disease, or unspecified chronic kidney disease; N18.9 Chronic kidney disease, unspecified; I25.2 Old myocardial infarction; F17.220 Nicotine dependence, chewing tobacco, uncomplicated; Z79.899 Other long term (current) drug therapy; Z86.73 Personal history of transient ischemic attack (TIA), and cerebral infarction without residual deficits
CPT/HCPCS: 96372; 99282; J3030

== ENCOUNTER 2024-04-12 12:13 | Emergency (ER) | payer MEDICAID, SELFPAY ==
[2024-04-12 12:14] VITALS: BP 139/92; PULSE 80; RESP 16; TEMP 36.9; O2SAT 96
--- NOTE | 2024-04-12 12:45 | RAD_ITS ---
PROCEDURE: CHEST 1 VIEW (PORTABLE) REASON FOR EXAM: Shortness of breath. TECHNIQUE: Frontal view of the chest. COMPARISON: None. Comparison is made with prior study dated January 07, 2023. FINDINGS: The cardiac and mediastinal contours are normal. The lungs are clear. RAD/Chest 1 View (Portable) IMPRESSION: NEGATIVE SINGLE VIEW OF THE CHEST. Reading Location: [place] [id number]
[2024-04-12 12:59] LABS: Absolute Lymphocyte Count 1.77 X10^3/uL (0.83-4.51); Absolute Neutrophil Count 4.7 X10^3/uL (2.0-7.7); Basophil# 0.05 X10^3/uL; Basophil% 0.7 % (0-1); Eosinophil# 0.42 X10^3/uL; Eosinophils% 5.5 % (0-5); Hematocrit 38.1 % (37-47); Lymphocyte # 1.77 X10^3/ul (0.83-4.51); Lymphocyte % 23.1 % (19-41); Mean Corp Hgb Conc 31.5 g/dL (32-36); Mean Corpuscular Hgb 28.5 pg (27.0-32.0); Mean Corpuscular Volume 90.5 fL (81-99); Mean Platelet Vol. 9.7 fl (6.2-12.0); Monocyte# 0.64 X10^3/uL; Monocyte% 8.4 % (0-10); NRBC Flagged by Analyzer 0 % (0-5); Neutrophil # 4.71 X10^3/uL (2.7-7.7); Neutrophil % 61.5 % (47-70); Platelet Count 219 K/mm3 (150-450); RBC Distribution Width CV 12.9 % (11.6-14.6); RBC Distribution Width SD 42.6 fl (35.1-43.9); Red Blood Count 4.21 M/mm3 (4.2-5.4); White Blood Count 7.7 K/mm3 (4.4-11.0)
[2024-04-12 13:18] LABS: Anion Gap 6 (5-15); BUN 21 mg/dL (7-18); BUN/Creat Ratio 30.3 RATIO (10-20); Calcium,Total 10.5 mg/dL (8.5-10.1); Chloride 107 mmol/L (98-107); Creatinine, Serum 0.69 mg/dL (0.55-1.02); EST Glomerular Filtration Rate 94 mL/min (>60); Est Glom Filt Rate - Afr Amer 113 mL/min (>60); Glucose 102 mg/dL (74-106); Sodium Level 139 mmol/L (136-145)
--- NOTE | 2024-04-12 13:23 | CT_ITS ---
PROCEDURE: SPINE CERVICAL WITHOUT CONTRAS REASON FOR EXAM: Fall due to seizure activity. TECHNIQUE: Cervical spine CT without contrast. Sagittal and coronal reconstruction was obtained as well. COMPARISON: None. FINDINGS: There is loss of the normal cervical lordosis. C3-C4 level: There is evidence of facet joint osteoarthritis and hypertrophy worse on the right side. Uncovertebr al arthrosis. Bilateral neural foraminal stenosis worse on the right side. C4-C5 level: Marked degree of disc space narrowing with spondylosis. Uncovertebral arthrosis. Bilateral neural f oraminal stenosis to a moderate degree bilaterally. C5-C6: Marked degree of disc space narrowing. Spondylosis anterior and posterior. Mild left central canal stenosis due to posterior osteophyte. Bilateral neural foraminal stenosis. C6-C7 level: Marked degree of disc space 9. Spondylosis. Mild degree of central canal and bilateral neural wale inal stenosis. CT/Spine Cervical without Contras IMPRESSION: NO ACUTE CERVICAL FRACTURE. DEGENERATIVE CHANGES. One or more dose reduction techniques were used (e.g., Automated exposure contr ol, adjustment of the mA and/or kV according to patient size, use of iterative reconstruction technique). Reading Location: [place] [id number]
--- NOTE | 2024-04-12 13:23 | CT_ITS ---
PROCEDURE: BRAIN/HEAD WITHOUT CONTRAST REASON FOR EXAM: Trauma. TECHNIQUE: CT head without contrast COMPARISON: Head CT 01/07/2023 FINDINGS: Moderate mucosal thickening is seen of the right maxillary sinus. No air-fluid level is noted. The remaining paranasal sinuses appear clear, as do the mastoid air cells. No orbital pathology is noted. No fracture site is identified. Stable calcified right frontal scalp process compared with the prior CT of 01/07/2023. No intracranial hemorrhage, mass, or mass effect is seen. Ventricles appear symmetric and within the normal range. No extra-axial fluid collection is noted. CT/Brain/Head without Contrast IMPRESSION: No intracranial hemorrhage or other acute process is seen One or more dose reduction techniques were used (e.g., Automated exposure contr ol, adjustment of the mA and/or kV according to patient size, use of iterative reconstruction technique). Reading Location: [id number]
--- NOTE | 2024-04-12 13:49 | RAD_ITS ---
PROCEDURE: KNEE 4 OR MORE VIEWS REASON FOR EXAM: Fall due to seizure activity. TECHNIQUE: 4 views of the left knee COMPARISON: None. FINDINGS: No fracture. No suspicious bone lesion. Mild degree of joint space narrowing involving the medial c ompartment of knee joint. Normal alignment. No effusion. Soft tissues are unremarkable. RAD/Knee 4 or More Views IMPRESSION: DEGENERATIVE OSTEOARTHROSIS. NO ACUTE FINDINGS. Reading Location: [facility]
[2024-04-12 14:13] VITALS: BP 111/62; PULSE 66; RESP 15; TEMP 36.3; O2SAT 99
[2024-04-12 14:20] VITALS: O2SAT 99
[2024-04-12 14:37] LABS: Bedside Glucose 86 mg/dL (74-106)
[2024-04-12 14:50] VITALS: BMI 43.3
[2024-04-12 16:00] VITALS: BP 115/65; PULSE 67; RESP 16; O2SAT 96
--- NOTE | 2024-04-12 16:10 | EX.ED.DYSGE1 ---
HPI History of Present Illness Chief Complaint: Seizure Informant: patient and EMS Narrative Narrative: 53-year-old female with a history of seizures states she had a breakthrough seizure today, the first one she had in a long time. She has been compliant with her levetiracetam 750 mg twice daily, she has not missed any doses, she has had no medication changes recently, nor she had any illness. She was laying on her bed when she had the seizure, it was witnessed by someone else who is not accompanying her, which is why they called EMS promptly. Patient states she woke up on the floor as if she had fallen out of bed, her head hurts, her left leg/knee hurts medially, and her neck is sore. She is complaining of paresthesias in her left arm and leg without weakness or pain. She states she has had those before after seizures. She states she has been under a lot of stress and stress has triggered breakthrough seizures in the past for her. [facility] Medical History CKD (chronic kidney disease) History of heart attack History of CVA (cerebrovascular accident) (2002) Type 2 diabetes mellitus Essential hypertension COPD (chronic obstructive pulmonary disease) Asthma Epilepsy Home Medications ?Medication ?Instructions ?Recorded ?Last Taken ?Type gabapentin 300 mg capsule 300 mg PO 4X/DAY 01/26/17 Unknown History (Neurontin) omeprazole 20 mg capsule,delayed 20 mg PO DAILY #30 caps 01/26/17 Unknown Rx release simvastatin 20 mg tablet 20 mg PO QHS 01/26/17 Unknown History albuterol sulfate 90 mcg/actuation 2 puff inhalation Q6H PRN 10/03/21 Unknown History aerosol inhaler (Ventolin HFA) Shortness Of Breath buspirone 5 mg tablet 5 mg PO DAILY 10/03/21 Unknown History ferrous sulfate 325 mg (65 mg 325 mg PO DAILY 10/03/21 Unknown History iron) tablet (FeroSul) fluticasone furoate 100 1 inh inhalation DAILY 10/03/21 Unknown History mcg-vilanterol 25 mcg/dose inhalation powder (Breo Ellipta) metoprolol succinate 50 mg 50 mg PO DAILY #90 tabs 10/03/21 Unknown Rx tablet,extended release 24 hr (Toprol XL) potassium chloride 10 mEq 10 meq PO DAILY 10/03/21 Unknown History tablet,extended release furosemide 40 mg tablet (Lasix) 40 mg PO DAILY #90 tabs 01/01/22 Unknown Rx ondansetron 4 mg disintegrating 4 mg PO Q8H PRN PRN Nausea #10 tabs 10/22/22 Unknown Rx tablet doxycycline hyclate 100 mg tablet 100 mg PO BID 7 days #14 tabs 09/19/23 Unknown Rx sumatriptan succinate 25 mg tablet 25 mg PO Q2H PRN migraine headache 10/19/23 Unknown Rx (Imitrex) #10 tabs levetiracetam 1,000 mg tablet 1,000 mg PO BID #60 tabs 04/12/24 Unknown Rx (Keppra) Allergy/AdvReac Type Severity Reaction Status Date / Time Latex, Natural Rubber Allergy Rash Verified 04/12/24 12:17 Penicillins (PCN) AdvReac Nausea/Vom/ Verified 04/12/24 12:17 Diarrhea Surgical History History of section History of left heart catheterization (12/11/16) History of cholecystectomy Social History household members: none Smoking Status: Current every day smoker tobacco type: smokeless tobacco Smokeless tobacco user: chewing tobacco ROS ROS ED Constitutional Constitutional ED: Denies chills or fever(s) Eyes Eyes: Denies change in vision or diplopia ENT ENT ED: Denies rhinorrhea or sore throat Cardiovascular Cardiovascular: Denies chest pain or palpitations Respiratory/Chest Respiratory/Chest: Denies cough or dyspnea Gastrointestinal Gastrointestinal: Denies abdominal pain, diarrhea, nausea or vomiting Genitourinary Genitourinary ED: Denies dysuria or hematuria Musculoskeletal Musculoskeletal: Reports extremity pain and neck pain; Denies back pain Integumentary Denies abscess or rash Neurologic Neurologic: Reports headache(s) and paresthesias LUE and LLE; Denies weakness Psychiatric Psychiatric: Denies anxiety or suicidal thoughts EXAM Physical Exam Const Vital Signs: 04/12/24 12:14 04/12/24 14:13 04/12/24 14:20 Temperature 98.4 F 97.3 F L Temperature Source Oral Oral Pulse Rate 80 66 Respiratory Rate 16 15 Blood Pressure 139/92 H 111/62 Blood Pressure Mean 107 78 Pulse Ox 96 99 99 Oxygen Delivery Method Room Air Room Air Room Air Positive well nourished and well developed General Appearance ED: well developed and NAD HEENT Reports TM's clear and moist mucous membranes HEENT Narrative: No CSF otorhinorrhea, Reyna sign, raccoon eyes, hemotympanum normocephalic and atraumatic Tympanic Membrane ED: Yes TM's clear Eyes PERRL and EOMs intact bilaterally Neck full ROM and supple Resp normal respiratory effort and clear to auscultation bilaterally Cardio regular rate, regular rhythm and no murmurs GI non-tender and non-distended Auscultation: normoactive bowel sounds Palpation: soft Back/Spine no CVA tenderness General Back: other FROM Extremity normal to inspection Extremity Narrative: Tender at the medial aspect of the left knee, but she has full range of motion all ligaments stable with short endpoints and no laxity on stressing. Negative anterior and posterior drawer signs. No effusion. Extensor mechanism intact. No other extremity tenderness. General Extremety ED: Yes tenderness; Negative for edema or pulses abnormal General Extremity: Negative for edema or pulses abnormal Neuro oriented x3, CN's II-XII intact bilaterally and no sensory deficits noted Neuro Narrative: No gross sensory deficits noted, but patient subjectively complains of asymmetry with decreased sensation in the left arm and left leg compared with the right side. No weakness. Sensorium / Orientation: awake and alert Motor Exam: strength 5/5 throughout Psych mental status grossly normal Skin no rashes or lesions noted and no wounds MDM MDM MDM Narrative Medical decision making narrative: Given the patient's neck pain and left sided tingling, and no other areas of spine pain or tenderness, and the fact that she has headache and fell out of bed and possibly hit her head on the floor, obtain CT of the head and cervical spine. I reviewed the images of both, as well as report which I agree with; essentially negative for any acute. 4 view left knee x-ray on my interpretation negative for acute fracture radiology in agreement. On reexamination she states the tingling is a lot better, just with time/observation. Her calcium is a little high this can be repeated as an outpatient and checked on, the rest of her labs are unremarkable. She was given an extra levetiracetam to 50, I recommend going up on her dose to 1000 mg twice daily until she can follow-up with her neurologist Dr. Barrientos she is comfortable with that plan and given a new prescription. Lab Data Attestation: I reviewed the patient's lab results. Labs: Laboratory Results - last 24 hr 04/12/24 04/12/24 12:41 14:18 WBC 7.7 RBC 4.21 Hgb 12.0 Hct 38.1 MCV 90.5 MCH 28.5 MCHC 31.5 L RDW Std Deviation 42.6 RDW Coeff of Pb 12.9 Plt Count 219 MPV 9.7 Immature Gran % (Auto) 0.800 Neut % (Auto) 61.5 Lymph % (Auto) 23.1 [place] % (Auto) 8.4 Eos % (Auto) 5.5 H Baso % (Auto) 0.7 Absolute Neuts (auto) 4.7 Absolute Lymphs (auto) 1.77 Nucleated RBC % 0 Sodium 139 Potassium 4.0 Chloride 107 Carbon Dioxide 27.0 Anion Gap 6 BUN 21 H Creatinine 0.69 Est GFR (MDRD) Af Amer 113 Est GFR (MDRD) Non-Af 94 BUN/Creatinine Ratio 30.3 H Glucose 102 Calcium 10.5 H POC Glucose 86 Radiography Diagnostic Testing: Clinical Impression(s) from Imaging Studies Chest X-Ray 04/12/24 12:45 IMPRESSION: NEGATIVE SINGLE VIEW OF THE CHEST. Reading Location: [place] [id number] 04/12/24 13:23 IMPRESSION: No intracranial hemorrhage or other acute process is seen One or more dose reduction techniques were used (e.g., Automated exposure control, adjustment of the mA and/or kV according to patient size, use of iterative reconstruction technique). Reading Location: [id number] Cervical Spine CT 04/12/24 13:23 IMPRESSION: NO ACUTE CERVICAL FRACTURE. DEGENERATIVE CHANGES. One or more dose reduction techniques were used (e.g., Automated exposure control, adjustment of the mA and/or kV according to patient size, use of iterative reconstruction technique). Reading Location: [id number] Knee X-Ray 04/12/24 13:49 IMPRESSION: DEGENERATIVE OSTEOARTHROSIS. NO ACUTE FINDINGS. Reading Location: [facility] Rhythm Strip Rhythm Strip: Sinus Rhythm Rate: 80 Ectopy: None Discharge Plan Triage Chief Complaint: Seizure ED Provider: Nathaniel Olmstead Dx/Rx/DC Orders Clinical Impression: Breakthrough seizure, Closed head injury, Acute cervical myofascial strain, Fall from bed, Seizure disorder, Paresthesia Instructions: ED Seizure, Recurrent (Adult) Prescriptions: New levetiracetam [Keppra] 1,000 mg tablet 1,000 mg PO BID Qty: 60 0RF Continued buspirone 5 mg tablet 5 mg PO DAILY ferrous sulfate [FeroSul] 325 mg (65 mg iron) tablet 325 mg PO DAILY potassium chloride 10 mEq tablet extended release 10 meq PO DAILY albuterol sulfate [Ventolin HFA] 90 mcg/actuation HFA aerosol inhaler 2 puff inhalation Q6H PRN (Reason: Shortness Of Breath) fluticasone furoate-vilanterol [Breo Ellipta] 100-25 mcg/dose blister with device 1 inh inhalation DAILY metoprolol succinate [Toprol XL] 50 mg tablet extended release 24 hr 50 mg PO DAILY Qty: 90 3RF simvastatin 20 MG tablet 20 mg PO QHS gabapentin [Neurontin] 300 MG capsule 300 mg PO 4X/DAY omeprazole 20 MG capsule 20 mg PO DAILY Qty: 30 0RF ondansetron 4 mg tablet,disintegrating 4 mg PO Q8H PRN PRN (Reason: Nausea) Qty: 10 0RF doxycycline hyclate 100 mg tablet 100 mg PO BID 7 Days Qty: 14 0RF sumatriptan succinate [Imitrex] 25 mg tablet 25 mg PO Q2H PRN (Reason: migraine headache) Qty: 10 0RF Rx Instructions: do not exceed 8 doses per 24 hrs furosemide [Lasix] 40 mg tablet 40 mg PO DAILY Qty: 90 3RF Discontinued levetiracetam [Keppra] 750 MG tablet 750 mg PO BID Primary Care Provider: Stephany Livingston Referrals: Arnel Barrientos MD [Non-Staff] - As soon as possible Print Language: Vincentian Disposition Disposition: Home, Self Care
[2024-04-12 16:38] VITALS: BP 115/65; PULSE 67; RESP 16; TEMP 36.7; O2SAT 98
[2024-04-12] MEDS: levETIRAcetam 250 MG Tablet PO (16:58)
== END 2024-04-12 16:58 | disposition home or self-care (01) ==
PROVIDERS: Emergency Provider Emergency Medicine; PCP Internal Medicine; Visit Provider Emergency Medicine
DX: G40.909 Epilepsy, unspecified, not intractable, without status epilepticus (principal); J44.9 Chronic obstructive pulmonary disease, unspecified; E11.22 Type 2 diabetes mellitus with diabetic chronic kidney disease; I12.9 Hypertensive chronic kidney disease with stage 1 through stage 4 chronic kidney disease, or unspecified chronic kidney disease; S09.90XA Unspecified injury of head, initial encounter; R20.2 Paresthesia of skin; N18.9 Chronic kidney disease, unspecified; S16.1XXA Strain of muscle, fascia and tendon at neck level, initial encounter; Z79.899 Other long term (current) drug therapy; W06.XXXA Fall from bed, initial encounter; Z86.73 Personal history of transient ischemic attack (TIA), and cerebral infarction without residual deficits; I25.2 Old myocardial infarction; Z79.51 Long term (current) use of inhaled steroids; Z90.49 Acquired absence of other specified parts of digestive tract; F17.220 Nicotine dependence, chewing tobacco, uncomplicated
CPT/HCPCS: 70450; 71045; 72125; 73564; 80048; 82962; 85025; 99285

== ENCOUNTER → 2024-04-27 | Outpatient (CLI) | payer MEDICAID, SELFPAY ==
[2024-05-02 16:08] LABS: HPV APTIMA, High Risk Negative (Negative)
[2024-05-03 07:58] LABS: HPV Reflexed? YES, CHARGE PATIENT
== END | disposition home or self-care (01) ==
PROVIDERS: PCP Internal Medicine; Visit Provider Nurse Practitioner Family
DX: Z12.4 Encounter for screening for malignant neoplasm of cervix (principal)
CPT/HCPCS: 87624; 88175; G0145

== ENCOUNTER 2024-08-10 10:26 | Emergency (ER) | payer MEDICAID, SELFPAY ==
[2024-08-10 10:27] VITALS: BP 133/86; PULSE 96; RESP 14; TEMP 36.1; O2SAT 98
--- NOTE | 2024-08-10 11:02 | EX.ED.UPPERE ---
HPI History of Present Illness Chief Complaint: Upper Extremity Injury Detail of Chief Complaint: Left shoulder pain/injury Informant: patient Narrative Narrative: Patient presents to the emergency department with complaint of left shoulder pain after an injury 5 days ago. Patient states that she fell getting into her mother's place. She states that she tried to swipe the car to get in and lost her balance and fell. She was taken to [facility] that evening and had a CT scan of her brain that was unremarkable. Patient states that at that time really was not having much shoulder pain so she did not have it evaluated. Patient started having worsening pain in her left shoulder 2 days ago. Pain worse with movement. Having a hard time sleeping at night. She is right-hand dominant. [facility] Medical History CKD (chronic kidney disease) History of heart attack History of CVA (cerebrovascular accident) (2002) Type 2 diabetes mellitus Essential hypertension COPD (chronic obstructive pulmonary disease) Asthma Epilepsy Home Medications ?Medication ?Instructions ?Recorded ?Last Taken ?Type gabapentin 300 mg capsule 300 mg PO 4X/DAY 01/26/17 Unknown History (Neurontin) omeprazole 20 mg capsule,delayed 20 mg PO DAILY #30 caps 01/26/17 Unknown Rx release simvastatin 20 mg tablet 20 mg PO QHS 01/26/17 Unknown History albuterol sulfate 90 mcg/actuation 2 puff inhalation Q6H PRN 10/03/21 Unknown History aerosol inhaler (Ventolin HFA) Shortness Of Breath buspirone 5 mg tablet 5 mg PO DAILY 10/03/21 Unknown History ferrous sulfate 325 mg (65 mg 325 mg PO DAILY 10/03/21 Unknown History iron) tablet (FeroSul) fluticasone furoate 100 1 inh inhalation DAILY 10/03/21 Unknown History mcg-vilanterol 25 mcg/dose inhalation powder (Breo Ellipta) metoprolol succinate 50 mg 50 mg PO DAILY #90 tabs 10/03/21 Unknown Rx tablet,extended release 24 hr (Toprol XL) potassium chloride 10 mEq 10 meq PO DAILY 10/03/21 Unknown History tablet,extended release furosemide 40 mg tablet (Lasix) 40 mg PO DAILY #90 tabs 01/01/22 Unknown Rx ondansetron 4 mg disintegrating 4 mg PO Q8H PRN PRN Nausea #10 tabs 10/22/22 Unknown Rx tablet doxycycline hyclate 100 mg tablet 100 mg PO BID 7 days #14 tabs 09/19/23 Unknown Rx sumatriptan succinate 25 mg tablet 25 mg PO Q2H PRN migraine headache 10/19/23 Unknown Rx (Imitrex) #10 tabs levetiracetam 1,000 mg tablet 1,000 mg PO BID #60 tabs 04/12/24 Unknown Rx (Keppra) cyclobenzaprine 10 mg tablet 10 mg PO TID PRN Muscle Spasm #20 08/10/24 Unknown Rx TABLETS hydrocodone-acetaminophen 5-325mg 1 tab PO Q4H PRN PRN Pain 2 days 08/10/24 Unknown Rx 5mg-325mg #10 TABLETS Allergy/AdvReac Type Severity Reaction Status Date / Time Latex, Natural Rubber Allergy Rash Verified 08/10/24 10:34 Penicillins (PCN) AdvReac Nausea/Vom/ Verified 08/10/24 10:34 Diarrhea Surgical History History of section History of left heart catheterization (12/11/16) History of cholecystectomy Social History household members: none Smoking Status: Current every day smoker tobacco type: smokeless tobacco Smokeless tobacco user: chewing tobacco ROS ROS ED Review of Systems ROS Unobtainable: other Constitutional Constitutional ED: Reports lethargy; Denies chills, fever(s), sweats or weight loss Eyes Eyes: Denies blurry vision, change in vision or diplopia ENT ENT ED: Denies rhinorrhea or sore throat Cardiovascular Cardiovascular: Denies chest pain, orthopnea or racing heartbeat Respiratory/Chest Respiratory/Chest: Denies cough, dyspnea, dyspnea on exertion, orthopnea or sputum Gastrointestinal Gastrointestinal: Denies abdominal pain, diarrhea, nausea or vomiting Genitourinary Genitourinary ED: Denies dysuria, hematuria or urinary frequency Musculoskeletal Musculoskeletal: Reports other Details: Left shoulder pain ; Denies arthralgias, back pain, myalgias or neck pain Integumentary Denies abscess, Abrasions or rash Neurologic Neurologic: Denies headache(s) or weakness Psychiatric Psychiatric: Denies anxiety, depression or suicidal thoughts Endocrine Endocrinology: Denies polydipsia, polyphagia or polyuria Hematologic/Lymphatic Hematologic/Lymphatic: Denies easy bleeding, easy bruising or lymphadenopathy Allergic/Immunologic Allergic/Immunologic ED: Denies mouth swelling, tongue swelling or urticaria EXAM Physical Exam Const Vital Signs: 08/10/24 10:27 Temperature 96.9 F L Temperature Source Temporal Pulse Rate 96 Respiratory Rate 14 Blood Pressure 133/86 H Blood Pressure Mean 101 Pulse Ox 98 Oxygen Delivery Method Room Air Positive well nourished and well developed General Appearance ED: well developed and NAD HEENT Reports TM's clear and moist mucous membranes normocephalic and atraumatic; Negative for trauma or tenderness Tympanic Membrane ED: Yes TM's clear Eyes PERRL and EOMs intact bilaterally General Eye ED: Negative for pale conjunctiva or scleral icterus Neck no lymphadenopathy, supple and no JVD General: Negative for tenderness Chest Wall inspection of chest normal and palpation of chest normal Chest: Negative for tenderness Resp normal respiratory effort and clear to auscultation bilaterally Effort and Inspection: Negative for respiratory distress or pain with movement Auscultation: Negative for rhonchi, wheezes or diminished lung sounds Cardio regular rate, regular rhythm, S1 normal heart sound, S2 normal heart sound and no murmurs Peripheral Pulses: pulses 2+ throughout GI normal to inspection, nondistended, normoactive bowel sounds, soft to palpation, non-tender, non-distended and no masses Back/Spine no CVA tenderness and no thoracic nor lumbar tenderness Extremity normal to inspection Extremity Narrative: Left shoulder-patient has no deformity noted. No sulcus sign. No broken skin. There is no erythema or warmth noted. Patient has decreased ability to abduct the arm past 90 degrees. Patient has diffuse tenderness over the left trapezius as well as the glenohumeral joint. General Extremety ED: Negative for edema General Extremity: Negative for edema Neuro oriented x3, CN's II-XII intact bilaterally, no sensory deficits noted and gait normal Sensorium / Orientation: awake, alert, oriented to person, oriented to place and oriented to time Motor Exam: strength 5/5 throughout and strength abnormal Psych mental status grossly normal Skin no rashes or lesions noted and no wounds MDM MDM MDM Narrative Medical decision making narrative: Patient presents with left shoulder pain after a fall. Pain did not start for about 3 days after the fall. She has a lot of tenderness over the left trapezius. Also some discomfort over the anterior glenohumeral joint and AC joint. No obvious deformity grossly. X-rays of the left shoulder obtained interpreted by myself as no evidence of fracture dislocation. Radiology felt there might be a grade 2 AC separation. Patient will be given a sling. She will be given a prescription for Flexeril as well as few [place] for pain. Will refer to orthopedics for follow-up. Radiography Diagnostic Testin view x-rays of the left shoulder obtained interpreted by myself as no evidence of fracture or dislocation. Radiology felt there may be a grade 2 AC separation. Discharge Plan Triage Chief Complaint: Upper Extremity Injury ED Provider: Valeria Apple Dx/Rx/DC Orders Clinical Impression: Acute pain of left shoulder, AC separation Instructions: ED Sprain AC Joint, ED Shoulder Sprain Prescriptions: New cyclobenzaprine 10 mg tablet 10 mg PO TID PRN (Reason: Muscle Spasm) Qty: 20 0RF hydrocodone-acetaminophen 5-325 mg tablet 1 tab PO Q4H PRN PRN (Reason: Pain) 2 Days Qty: 10 0RF No Action buspirone 5 mg tablet 5 mg PO DAILY ferrous sulfate [FeroSul] 325 mg (65 mg iron) tablet 325 mg PO DAILY potassium chloride 10 mEq tablet extended release 10 meq PO DAILY albuterol sulfate [Ventolin HFA] 90 mcg/actuation HFA aerosol inhaler 2 puff inhalation Q6H PRN (Reason: Shortness Of Breath) fluticasone furoate-vilanterol [Breo Ellipta] 100-25 mcg/dose blister with device 1 inh inhalation DAILY metoprolol succinate [Toprol XL] 50 mg tablet extended release 24 hr 50 mg PO DAILY Qty: 90 3RF simvastatin 20 MG tablet 20 mg PO QHS gabapentin [Neurontin] 300 MG capsule 300 mg PO 4X/DAY omeprazole 20 MG capsule 20 mg PO DAILY Qty: 30 0RF ondansetron 4 mg tablet,disintegrating 4 mg PO Q8H PRN PRN (Reason: Nausea) Qty: 10 0RF levetiracetam [Keppra] 1,000 mg tablet 1,000 mg PO BID Qty: 60 0RF doxycycline hyclate 100 mg tablet 100 mg PO BID 7 Days Qty: 14 0RF sumatriptan succinate [Imitrex] 25 mg tablet 25 mg PO Q2H PRN (Reason: migraine headache) Qty: 10 0RF Rx Instructions: do not exceed 8 doses per 24 hrs furosemide [Lasix] 40 mg tablet 40 mg PO DAILY Qty: 90 3RF Primary Care Provider: Stephany Livingston Referrals: Stephany Livingston MD [Primary Care Provider] - Saurabh Fitzgerald MD [Med Staff - Active Staff] - 5-7 Days Print Language: Tamazight Disposition Disposition: Home, Self Care
--- NOTE | 2024-08-10 11:20 | RAD_ITS ---
PROCEDURE: SHOULDER MIN 2 VIEWS 08/10/2024 REASON FOR EXAM: INJURY TECHNIQUE: Four views of the left shoulder were obtained. COMPARISON: None FINDINGS: Bones: No fracture is seen. Joints: Grade 2 left acromioclavicular joint separation. Soft tissues: Unremarkable Other: RAD/Shoulder min 2 Views IMPRESSION: Findings suggestive of a grade 2 left AC joint separation. Reading Location: [facility]
== END 2024-08-10 12:48 | disposition home or self-care (01) ==
PROVIDERS: Emergency Provider Emergency Medicine; PCP Internal Medicine; Visit Provider Emergency Medicine
DX: S43.52XA Sprain of left acromioclavicular joint, initial encounter (principal); W19.XXXA Unspecified fall, initial encounter; Y92.89 Other specified places as the place of occurrence of the external cause; Y93.89 Activity, other specified; F17.220 Nicotine dependence, chewing tobacco, uncomplicated
CPT/HCPCS: 73030; 99284

== ENCOUNTER 2024-10-02 09:46 | Outpatient (RCR) | payer MEDICAID, SELFPAY ==
--- NOTE | 2024-10-02 09:05 | BH.SGPN.GN ---
Behaviors/Verbalizations/Mental Status: [] Eye contact is good. Motor activity is appropriate. Appearance is casual. Speech is Appropriate. Mood is depressed. Affect is congruent. Thoughts are linear and logical. No evidence of psychosis. Reviewed daily check in sheet and no reports of suicidal ideations or intent. Client Response/Progress/Benefit: [] Pt participated when prompted. Daily symptom tracker notes 2/5 for depression. Attentive. Today was pt?s first day in IOP. She briefly introduced herself and her goals for IOP. ? I?m bettering my life?. Shared her journey through addiction and recovery. She is close to 8 months sobriety, however has had to learn healthy coping skills for her depression which has been a struggles. Shared significant depressive episodes, isolation, and a previous suicide attempt. Group was empathetic and provided feedback on her first day in IOP which was beneficial. Will continue in IOP to prevent decompensation, increase healthy coping, and improve functioning. Narrative Note: []
--- NOTE | 2024-10-02 10:10 | BH.SGPN.GN ---
Behaviors/Verbalizations/Mental Status: [] Client alert and oriented, casually dressed and groomed. Eye contact good. Motor activity appropriate. Speech within normal limits. Affect congruent, mood anxious and depressed. Thoughts linear, logical, no signs of hallucinations or delusions. Client Response/Progress/Benefit: [] Pt was an attentive and active participant, AEB taking notes and providing input in group discussion. Attentive during psychoeducation. Pt engaged during interactive discussion in which the group defined self-care and discussed its benefits. Group discussed barriers and benefits to self-care. Identified benefits as being more productive, feeling more grounded, feeling happier, decreased anxiety, better quality of life, and increased resilience. Pt participated in small groups where they worked to identify and challenged common self-care ?myths?. Benefited from increased awareness of self-care, its benefits, and the consequences of not utilizing self-care strategies. Will continue IOP tx to prevent decompensation, improve healthy coping, and improve functioning.
--- NOTE | 2024-10-02 11:10 | BH.SGPN.GN ---
Behaviors/Verbalizations/Mental Status: []Client alert and oriented, casual appearance. Eye contact good. Motor activity appropriate. Speech within normal limits. Affect congruent, mood depressed and anxious. Thoughts linear, logical, no signs of hallucinations or delusions. Client Response/Progress/Benefit: [] Pt engaged participant AEB completing self-assessment worksheet and providing input throughout discussion. Pt completed worksheet identifying current self-care practices and what self-care activities Pt wants to start using. Pt selected emotional self-care to begin practicing more consistently. Pt plans to do this by journaling and practicing daily gratitude. Appeared to benefit from completing the self-care evaluation and gaining insights into current self-care practices, as well as identifying areas in which Pt would like to improve upon. Pt will continue IOP tx to prevent decompensation, maintain sobriety, and increase distress tolerance skills. Narrative Note: []
--- NOTE | 2024-10-02 15:39 | BH.MTP ---
Master Treatment Plan Patient Information Program Physician:: Dr. Jimi Clifford Primary Therapist:: ALISSA Carrillo Psychiatric Diagnoses Psychiatric Diagnoses:: Bipolar disorder, unspecified; PSTD; Stimulant use disorder Diagnosis Code(s):: F31.9 Estimated LOS Estimated LOS (in weeks):: 6 Problem/Goal #1 Problem/Goal #1 Stated Goal:: Achieve controlled behavior, moderated mood, more deliberative speech and thought process, and a stable daily activity pattern. Client will also increase mood stability, reduce depression AEB self-report and reduction of scores of the bipolar and depression domain on the DSM-5 cross-cutting scales. Description of Barriers: limited benefit from medications, significant psychosocial stressors (finances, homelessness, unemployed), commitment to program uncertain Functional Impact: Jerri Wills is a 54 year old female who presents today for new patient evaluation. Patient admits to long standing history of substance use disorder specifically alcohol and stimulants ( cocaine and methamphetamines). Previously had 8 years of sobriety up to 2018 until her father and then she relapsed on drugs and alcohol. Currently has been 8 months sober up to this point. Admits to getting a possession and trafficking charge in April of last year. Was subsequently going through court while living at [facility]. Was looking at 13 years in penitentiary when she wrote a letter to [employer] asking for treatment in lieu of conviction. Has been looking for a job for the last 4 months and will be interviewing at some different jobs in near future.If she doesn't get a job, may be removed from sober living and will effectively become homeless. Has been in talks with [facility] for additional resources. Admits that two days ago was feeling that she was ready to give up on everything. Elaborates that this is was a thought of wanting to use. Was able to rationalize thoughts, and was able to maintain sobriety as she knows that if she relapses she will be getting 6 year penitentiary automatically. Objectives Objective #1: Stated Objective: Client will increase self-awareness of bipolar illness through education from individual therapist as well as educational handouts. Interventions: Through individual and group counseling will provide education on criteria for Bipolar, define cayetano/hypomania, identify warning signs to cayetano, and develop an individualized and written Bipolar management plan for patient Discharge Criteria: Complete Bipolar management plan. Target Date: 11/17/24 Review Date: 10/26/24 Objective #2: Stated Objective: Client will identify at least 2-3 negative self-talk messages used to reinforce negative core beliefs and low self-worth and replace thoughts with more realistic messages. Interventions: Through individual and group counseling will assist client in identifying, challenging, and replacing dysfunctional thoughts with positive, more realistic thoughts. Therapist will use CBT and DBT techniques to help client gain awareness of thinking errors and learn how to more effectively handle negative thoughts that reinforce unhealthy coping skills Discharge Criteria: Will be able to identify 2-3 negative self-talk messages and identify 2 strategies to reframe/challenge these thoughts. Target Date: 11/17/24 Review Date: 10/26/24 Problem/Goal #2 Problem/Goal #2 Stated Goal:: Client will reduce anxiety and ptsd symptoms while increasing ability to function on daily basis AEB self report and reduction of scores on the anxiety domain of the DSM-5 SCALES. Description of Barriers: limited benefit from medications, significant psychosocial stressors (finances, homelessness, unemployed), commitment to program uncertain Functional Impact: Jerri Wills is a 54 year old female who presents today for new patient evaluation. Patient admits to long standing history of substance use disorder specifically alcohol and stimulants ( cocaine and methamphetamines). Previously had 8 years of sobriety up to 2018 until her father and then she relapsed on drugs and alcohol. Currently has been 8 months sober up to this point. Admits to getting a possession and trafficking charge in April of last year. Was subsequently going through court while living at [facility]. Was looking at 13 years in penitentiary when she wrote a letter to [employer] asking for treatment in lieu of conviction. Has been looking for a job for the last 4 months and will be interviewing at some different jobs in near future.If she doesn't get a job, may be removed from sober living and will effectively become homeless. Has been in talks with [facility] for additional resources. Admits that two days ago was feeling that she was ready to give up on everything. Elaborates that this is was a thought of wanting to use. Was able to rationalize thoughts, and was able to maintain sobriety as she knows that if she relapses she will be getting 6 year penitentiary automatically. Objectives Objective #1: Stated Objective: Client will identify 2-3 anxiety/panic triggers and 2 coping skills to use when feeling anxious to manage anxiety/panic attacks as shown by decreasing his DSM-5 scores for anxiety Interventions: Through individual and group counseling will provide education on anxiety, avoidance behaviors, and maintenance cycles. Therapist will help client explore personal symptoms and warning signs of anxiety. Therapist will teach client coping skills to improve emotional regulation, mindfulness, and distress tolerance to help client cope with anxiety in the moment. Discharge Criteria: Able to identify anxiety triggers and a two strategies to cope and calm anxiety. Target Date: 11/17/24 Review Date: 10/26/24
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
--- NOTE | 2024-10-04 09:05 | BH.SGPN.GN ---
Behaviors/Verbalizations/Mental Status: [] Eye contact is good. Motor activity is appropriate. Appearance is casual. Speech is Appropriate. Mood is depressed. Affect is congruent. Thoughts are linear and logical. No evidence of psychosis. Reviewed daily check in sheet and no reports of suicidal ideations or intent. Client Response/Progress/Benefit: [] Pt participated at times during the group discussions. Attentive. Daily symptom tracker notes 3/5 for depression and 2/5 for agitation. She reports increase depression and anxiety primarily related to housing issues, finances, and difficulty finding employment. Benefited from group support, encouragement, and feedback. Will continue in IOP to prevent decompensation, increase healthy coping, and improve functioning Narrative Note: []
--- NOTE | 2024-10-04 10:10 | BH.SGPN.GN ---
Behaviors/Verbalizations/Mental Status: [] Eye contact is fair. Motor activity is appropriate. Appearance is casual. Speech is Appropriate. Mood is anxious and dysthymic. Affect is constricted. Thoughts are linear and logical. No evidence of psychosis. Client Response/Progress/Benefit: [] Pt responded well to session AEB actively participating throughout group. Pt was attentive throughout group activity discussing famous individuals and how they overcame failure to be successful. Pt helped group define fear of failure as well as how it can impact mental health and relationships. Participated in experiential activity and worked with group members to problem solve. Appeared to benefit from increased knowledge of what causes fear of failure and how it impacts people. Will continue IOP tx to prevent decompensation, increase emotion regulation, and challenge distorted thoughts.
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
--- NOTE | 2024-10-06 09:42 | BH.DR.ITP ---
Initial Treatment Plan Patient Information Visit Information: ADMISSION DATE: EXPECTED LOS: 4-6 weeks Problems/Symptoms Problem #1:: PTSD Symptom:: flashbacks, nightmares, anxiety, dysphoria Problem #2:: Bipolar Symptom:: irritability, distractibility, decreased need for sleep, grandiosity
--- NOTE | 2024-10-06 10:15 | BH.SGPN.GN ---
Behaviors/Verbalizations/Mental Status: [] Client alert and oriented, casual appearance. Eye contact good. Motor activity appropriate. Speech within normal limits. Affect congruent, mood anxious. Thoughts linear, logical, no signs of hallucinations or delusions. Client Response/Progress/Benefit: []Client responded well to session AEB listening attentively to peers, taking notes, and engaging in discussions. Client attentive to psychoeducation about different styles of decision making. Client engaged in discussion about internal and external influences that impact decision making. Group identified internal influences that impact decision making to include self-talk, anxiety, mood, and past experiences. Group identified external influences that impact decision making to include opinions from others, peer pressure, societal or cultural norms, and finances. Client seemed to benefit from increased awareness and understanding of different decision making styles. Plan is for client to continue IOP to improve daily functioning, increase healthy coping skills, and prevent decompensation.
--- NOTE | 2024-10-06 11:00 | BH.NA ---
Physical Data Vital Signs Pulse Rate: 73 Blood Pressure: 154/73 Height/Weight Height: 1.63 m Weight:: 123.831 kg Weight in Pounds: 273.0 lbs Nutritional History Appetite Nutritional Instructions: Describe your appetite:: Good Additional nutritional information:: Client states she has gained about 100lbs in the last 6 months. Functional Assessment Sleep Pattern Describe any problems with sleeping: Client states she sleeps about 4-5 hours per night. Sensory/Communication Assess Communication Problems Do you have difficulty understanding what people are saying?: No Medical Problems/History Cardiac Conditions Cardiovascular: Coronary artery disease, Hypertension and Myocardial infarction (x 3, last in 2017) Respiratory Conditions Respiratory: Asthma and Other (See comments) (COPD) Neurological Conditions Neurological: Headaches, Seizures (history of epilepsy, last seizure 4 months ago) and Other (See comments) (CVA in 2002- has weakness on both sides of body since, especially right side. States she has also had several TIAs in the past.) Genitourinary Conditions Genitourinary: Other (See comments) (CKD) Metabolic Conditions Metabolic: Diabetes (type 2- had been taken off Metformin due to A1C being low. Discussed with client she should talk to her PCP again about diabetes since she has had a large weight gain.) Surgical History Surgical History Have you had any surgeries? If so, list type and date:: Yes ( x2, heart cath x 2, urban) Substance Abuse Substance Abuse Please describe substance abuse in the last 30 days:: Client denies recent alcohol use. Client has a history of tobacco use. Client states she has been sober for 8 months from meth. Client states she typically has 2 drinks with caffeine per day- coffee and pop. Mental Status Summary Mental Status Significant Findings/Observations on Appearance and Mood:: Client is alert and oriented x 4. Client is casually groomed. Client is cooperative with assessment. Client makes good eye contact. Client's voice has normal rate but is loud at times. Client has an appropriate affect. Client makes logical associations and has normal processing. Client reports some passive SI, but denies plan/intent. Suicide Assessment Suicidal Ideation Are you currently or have you been suicidal in the past?: Yes Suicidal Intentional Rating Scale (SIRS): Suicidal thoughts (past) (passive thoughts at times- denies SI this day) Physician Notification Past Psychiatric History MH Treatment Hx Past Psychiatric Medications:: states she has been on many meds over the years, does not know the names Age of first mental health symptoms: Client states she was first treated for mental health in her early 20's. Describe (age, circumstance, etc) any past hospitalizations: No hospitalizations- does have a history of four suicide attempts, the last being in 2018 by overdose. Current providers for mental health treatment (counselor, psychiatrist, case management coordinator, etc.): Wendy Donnelly- therapist at [facility] Risk Assessment Age Age: Less than 60 Mental Status Mental Status: Willing & able to ask for assistance when needed Physical Status Physical Status: No problems Impairments Impairments: None Elimination Elimination: Continent AND independent Gait or Balance Gait or Balance: Walks independently Hx of Falls History of falls in the past 6 months: No known history Medications/Substances Psychotropics:: Antidepressants Others:: Antihypertensives Medications/substances used within the past 24 hours or ordered to administer: 1-2 of the medications/substances listed above Total Score Total Points:: 1 RN Summary of Impressions Impressions Recommendations Impression: General Medical Conditions: Discussed with client about seeing her PCP to talk about her history of DM2 since she has had a rapid weight gain in the last 6 months. Client also asked for information about obtaining a new local cellular equipment repairer (information printed out and given to client about [facility]) and requested information about [facility] (information on [place] office printed and given to client). Client also states she is concerned that a doctor told her to stop taking her Lasix and states she thinks she does have fluid retention. Talked to client about calling her PCP office about concerns. Level of Care How do the client's current symptoms and functional deficits support need for this level of care?: Client was referred to IOP due to mental health affecting functioning. Client has been through a substance use IOP/PHP and has currently been living in transitional housing after this. Client states they are taking it week by week on letting her continue to stay in transitional housing as she has no housing lined up and does not have a job. Client states a significant source of stress is not having her dog with her due to pets not being allowed at the transitional housing. Client reports decreased energy, isolation, avoidance, crying spells, and a decrease in her regular ADL's. Client has been sober from meth for 8 months. Client reports some passive SI at times, but denies at this time and denies plan/intent. IOP will promote gains and prevent further decompensation while providing social support and skills training.
--- NOTE | 2024-10-06 11:15 | BH.SGPN.GN ---
Behaviors/Verbalizations/Mental Status: []Pt alert and oriented, casually dressed and groomed. Eye contact good. Motor activity appropriate. Speech within normal limits. Affect congruent, mood depressed and anxious. Thoughts linear, logical, no signs of hallucinations or delusions. Client Response/Progress/Benefit: [] Pt took notes and contributed to group discussions and was an active participant in activity. Pt engaged in continued discussion on decision making styles and pros and cons of each. Pt actively participated in experiential activity in which the group was given a scenario and prompted to decide what they would do. Did well to actively reflect on the various factors influencing their identified decisions as well. Pt worked with group to then identify several strategies for improving healthy decision making skills. Pt shared wanting to work on improving ability to use smith mind and less emotional responses before making decisions. Pt appeared to benefit from learning about building healthy decision making processes. Will continue IOP tx to improve mood stability, increase distress tolerance, and prevent decompensation. ? Narrative Note: []
--- NOTE | 2024-10-09 09:00 | BH.SGPN.GN ---
Behaviors/Verbalizations/Mental Status: [] Client alert and oriented, casual appearance. Eye contact good. Motor activity appropriate. Speech within normal limits. Affect congruent, mood euthymic. Thoughts linear, logical, no signs of hallucinations or delusions. Reviewed client's symptom tracker, no risk for suicidal ideation, plan, or intent. Client Response/Progress/Benefit: []Client responded well to session AEB listening to others and sharing thoughts/feelings. Per daily symptom tracker client reported a 1/5 for depressed mood and a 0/5 for anxious mood. Client stated mental health positive as celebrating 8 months of sobriety over the weekend. Client noted additional month of positive as getting a job at the [email or web address] which is helping her relieve financial stress. 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 client appeared to benefit from support from peers. Due to client getting a job that starts tomorrow and the work schedule conflicts with [facility] schedule client will discharge from [facility] today.
--- NOTE | 2024-10-09 10:00 | BH.SGPN.GN ---
Behaviors/Verbalizations/Mental Status: [] Eye contact is good. Motor activity is appropriate. Appearance is casual. Speech is Appropriate. Mood is dysthymic. Affect is congruent. Thoughts are linear and logical. No evidence of psychosis. Client Response/Progress/Benefit: [] Pt participated in the group discussions AEB providing input and taking notes. Attentive during psychoeducation on SMART Goal Setting. Pt worked with group to identify common barriers to goal setting which included; mental health struggles, energy/motivation, limited support, change to routine, limited knowledge how to set goals, having unrealistic goals, and our internal expectations. Group also identified benefits of goals, which included: can map progress, it challenges one, can boast confidence, and can cause positive change/growth. Pt identified personal benefits to goal setting. Benefited from increased awareness of mental health benefits of goals as well as psychoeducation on SMART goal criteria. Will continue in IOP to prevent decompensation, gain healthy coping skills, and improve distress tolerance skills. Narrative Note: []
--- NOTE | 2024-10-09 14:19 | BH.MDN_ITS ---
Multi-Disciplinary Note Note 30-min Individual: Time Started:: 11:25 Date: 10/09/24 Purpose of session/treatment goals addressed:: Purpose of session was to review aftercare plans and discuss d/c as pt now longer able to attent treatment. Eye Contact:: Good Motor Activity:: Appropriate Appearance:: Casual Speech:: Appropriate Mood:: Euthymic Affect:: Congruent Thoughts:: Linear, Logical and No evidence of hallucinations/delusions noted Staff Interventions:: motivational interviewing, discharge planning, strengths perspective and other (provided pt with telehealth resources) Client Response:: Pt receptive to session, actively engaged throughout. Reports that her weekend was productive as she had two interviews. Pt shared excitedly that she was hired for both positions and has orientation at [facility] tomorrow morning. Reports that because of this she will no longer be able to remain in the IOP program. Went on to note that she has found the shared group environment to be supportive and beneficial in knowing that she is not alone in her mental health struggles. Explained that she does not want to have to discharge from IOP tx but needs to maintain employment to be able to have finances needed to secure housing and meet her basic needs. Pt receptive of referral information for similar telehealth IOP options that may be able to coordinatewith her work schedule. Pt and therapist reviewed the pros and cons of taking and starting both of the jobs she was offered given that she has not worked in some time. Reviewed the risks of adding extra stress and less time for other things if working both full and part-time positions. Able to recognize that this would effect time she can attend relapse prevention meetings and may begin to effect herp[hysically as she struggles with arthritis. Willing to take some time and think about costs vs. 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 Plans to reach out to both this afternoon. Reviewed additional skills she can use when feeling stressed in the workplace. Pt decribed a sense of relief and ?peace? now that she has a means of addressing financial concerns. Will d/c from tx today. Risks/Concerns:: None noted. Pt denies SI, plan, or intent as of this date. Progress Toward Goals/Plan:: Progress limited as pt was only in IOP tx for one week prior to d/c. Pt did reports finding the shared environment to be supportive and helpful in normalizing her own mental health difficulties. Pt stated learning new skills on grounding and self-care as well. Will continue [facility] outpatient providers at [facility] and [facility] for for ongoing individual counseling and medication management. Time Stopped:: 11:45
--- NOTE | 2024-10-09 15:32 | BH.DS ---
Discharge Summary Demographics Date of Admission:: 10/02/24 Discharge Date: 10/09/24 Presenting Problems at Admission:: Jerri Wills is a 54 year old female who presents today for new patient evaluation. Patient admits to long standing history of substance use disorder specifically alcohol and stimulants ( cocaine and methamphetamines). Previously had 8 years of sobriety up to 2018 until her father and then she relapsed on drugs and alcohol. Currently has been 8 months sober up to this point. Admits to getting a possession and trafficking charge in April of last year. Was subsequently going through court while living at [facility]. Was looking at 13 years in half-way when she wrote a letter to yield clerk asking for treatment in lieu of conviction. Has been looking for a job for the last 4 months and will be interviewing at some different jobs in near future.If she doesn't get a job, may be removed from sober living and will effectively become homeless. Has been in talks with [facility] for additional resources. Admits that two days ago was feeling that she was ready to give up on everything. Elaborates that this is was a thought of wanting to use. Was able to rationalize thoughts, and was able to maintain sobriety as she knows that if she relapses she will be getting 6 year half-way automatically. Discharge Diagnoses:: Bipolar Unspecified, PTSD, Stimulant use disorder (8 months sober) Reason for Discharge:: Pt would like to discharge from [facility] as pt was hired for a new full-time position over the weekend and schedules would conflict. Pt plans to continue with outpatient therapy and psychiatry. Treatment Progress During Treatment & Response: Limited progress as pt did not attend [facility] for more than a week. Pt did well individually and she reported benefitting from talking to people at [facility]. Issues Still to be Addressed:: Pt can benefit from ongoing therapy to process her PTSD, improve distress tolerance, and prevent relapse. Pt can also benefit from getting back into her social activities and connecting with sober social supports. Discharge Recommendations/Instructions:: Pt will continue with outpatient therapy through [facility] and [facility]. Pt shared she had a counseling appointment last Wednesday10/06/24 and has a psych appointment on 10/12/24. Discharge Handout
[2024-10-12 08:46] VITALS: BP 154/73; PULSE 73
== END 2024-10-09 12:09 | disposition home or self-care (01) ==
LOC: BHIOP 09:46
PROVIDERS: PCP Internal Medicine; Referring Provider Student in an Organized Health Care Education/Training Program; Visit Provider Student in an Organized Health Care Education/Training Program
DX: F31.9 Bipolar disorder, unspecified (principal); F43.10 Post-traumatic stress disorder, unspecified; F15.90 Other stimulant use, unspecified, uncomplicated
CPT/HCPCS: H2012; H2020; S9480; 90832; 90834

== ENCOUNTER 2024-12-25 11:12 | Emergency (ER) | payer MEDICAID, SELFPAY ==
[2024-12-25 11:24] VITALS: BP 119/73; PULSE 88; RESP 16; TEMP 37.8; O2SAT 97; BMI 47.0
[2024-12-25 12:23] LABS: Hematocrit 40.0 % (37-47); Hemoglobin 13.0 g/dL (12.0-15.0); Immature Granulocytes Count 0.040 X10^3/uL (0.0-0.0); Mean Corp Hgb Conc 32.5 g/dL (32-36); Mean Corpuscular Volume 85.5 fL (81-99); Mean Platelet Vol. 9.6 fl (6.2-12.0); NRBC Flagged by Analyzer 0 % (0-5); Platelet Count 278 K/mm3 (150-450); RBC Distribution Width CV 12.5 % (11.6-14.6); RBC Distribution Width SD 38.8 fl (35.1-43.9); Red Blood Count 4.68 M/mm3 (4.2-5.4); White Blood Count 8.6 K/mm3 (4.4-11.0)
[2024-12-25 12:30] VITALS: BP 131/86; O2SAT 94
[2024-12-25 12:58] LABS: AST(SGOT) 16 U/L (<=31); Alanine Aminotransfer ALT/SGPT 16 U/L (<=34); Albumin, Serum 4.2 g/dL (3.5-5.0); Alkaline Phosphatase 129 U/L (35-104); Anion Gap 9 (5-15); BUN 14 mg/dL (4-19); BUN/Creat Ratio 19.7 RATIO (10-20); Calcium,Total 11.3 mg/dL (7.6-11.0); Carbon Dioxide 25.3 mmol/L (21.0-32.0); Chloride 104 mmol/L (98-108); Estimated Creatinine Clearance 118.31 ml/min (50-250); Globulin 3.4 g/dL (2.2-4.2); Glucose 106 mg/dL (70-99); Lipase 28 U/L (13-75); Potassium 4.0 mmol/L (3.3-5.1)
[2024-12-25 13:25] LABS: Color, Urine Yellow (Yellow); Glucose, Dipstick Normal (Normal); Ketone-Dipstick Negative (Negative); Leukocyte Esterase-Dipstick Negative /ul (Negative); Nitrite-Dipstick Negative (Negative); Occult Blood-Urine Negative /ul (Negative); Protein-Dipstick 15 mg/dl (Negative); Specific Gravity, Urine 1.020 (1.002-1.030); Urine Bilirubin Dipstick Negative (Negative)
[2024-12-25 13:34] LABS: Mucous, Urine 1+ /hpf (<or=2+); Red Blood Cells-Urine 0-5 SEEN /hpf (0-5); Squamous Epithelial Cells - UA 5-10 SEEN /hpf (5-10)
[2024-12-25] MEDS: 0.9% Normal Saline (1000mL) 1,000 ML 1000 ML IV (13:35)
--- NOTE | 2024-12-25 13:55 | CT_ITS ---
PROCEDURE: ABDOMEN/PELVIS W IV CONT ONLY 12/25/2024 REASON FOR EXAM: LOWER ABD PAIN Nausea and vomiting. Fever. TECHNIQUE: Procedure Code: [id number] Modality: CT Procedure: ABDOMEN/PELVIS W IV CONT ONLY Coronal and Sagittal reconstruction series were provided. CONTRAST: Isovue-300 VOLUME: 100 mL One or more dose reduction techniques were used (e.g., Automated exposure control, adjustment of the mA and/or kV according to patient size, use of iterative reconstruction technique. RADIATION DOSE SUMMARY: CTDlvol: 16.65 mGy DLP: 1280.50 mGycm COMPARISON: None FINDINGS: Lung bases: The lung bases are unremarkable. Liver: Diffuse fatty infiltration. Gallbladder: Surgically absent. Spleen: Normal size. Pancreas: Normal size without evidence of mass surrounding inflammation or ductal dilation. Adrenals: Unremarkable Kidneys: Normal renal sizes. No hydronephrosis. Bladder: Unremarkable Reproductive Organs: Normal uterine size and contour. Ovaries are unremarkable. Bowel: Scattered sigmoid diverticula. Appendix: The appendix is not identified. There is no inflammatory process identified in the right lower quadrant to suggest appendicitis. Lymph nodes: Unremarkable. Vasculature: The abdominal aorta and IVC are normal. Peritoneum / Retroperitoneum: Unremarkable Bones: Mild degenerative changes. CT/Abdomen/Pelvis W IV Cont ONLY IMPRESSION: Fatty infiltration of the liver. Status post cholecystectomy. Scattered sigmoid diverticula. Reading Location: [place] [id number]
[2024-12-25 14:00] VITALS: PULSE 75; RESP 20; O2SAT 100
[2024-12-25 14:45] VITALS: BP 147/91; PULSE 73; RESP 18; TEMP 36.6; O2SAT 99
--- NOTE | 2024-12-25 15:40 | EX.ED.DYSGE1 ---
HPI History of Present Illness Chief Complaint: Nausea/Vomiting Narrative Narrative: Patient is a 54-year-old female presenting to the emergency department for abdominal pain, nausea, vomiting and subjective fevers since . Patient has a past medical history of stimulant use disorder, bipolar disorder, chest pain, hypertension, type 2 diabetes and CVA. Patient reports lower abdominal pain that comes and goes. She reports nausea with a few episodes of nonbloody, nonbilious vomiting over the weekend. She endorses a subjective fever at home but states she knows she does have a fever here. She denies any chest pain, shortness of breath, cough, sore throat, dysuria, hematuria, diarrhea or constipation. Denies any concern for any STDs. Denies any vaginal bleeding, discharge or pelvic pain. Reports sick contacts with similar symptoms at work. Has been taking Tylenol for symptomatic control. [facility] Medical History Stimulant use disorder PTSD (post-traumatic stress disorder) Bipolar disorder, unspecified Separation of left acromioclavicular joint Left shoulder pain CKD (chronic kidney disease) History of heart attack History of CVA (cerebrovascular accident) (2002) Type 2 diabetes mellitus Essential hypertension COPD (chronic obstructive pulmonary disease) Asthma Epilepsy Home Medications ?Medication ?Instructions ?Recorded ?Last Taken ?Type simvastatin 20 mg tablet 20 mg PO QHS CHOLESTEROL 01/26/17 12/23/24 History albuterol sulfate 90 mcg/actuation 2 puff inhalation Q6H PRN 10/03/21 12/23/24 History aerosol inhaler (Ventolin HFA) Shortness Of Breath ferrous sulfate 325 mg (65 mg 325 mg PO DAILY SUPPLEMENT 10/03/21 12/23/24 History iron) tablet (FeroSul) sumatriptan succinate 25 mg tablet 25 mg PO Q2H PRN migraine headache 10/19/23 Unknown Rx (Imitrex) #10 tabs levetiracetam 1,000 mg tablet 1,000 mg PO BID SEIZURE #60 tabs 04/12/24 Unknown Rx (Keppra) aspirin 81 mg tablet,delayed 81 mg PO DAILY HEART HEALTH 10/06/24 12/23/24 History release cholecalciferol (vitamin D3) 125 125 mcg PO DAILY SUPPLEMENT 10/06/24 12/23/24 History mcg (5,000 unit) tablet (Vitamin D3) fluticasone propionate 115 2 puff inhalation BID SOB 10/06/24 12/23/24 History mcg-salmeterol 21 mcg/actuation HFA inhaler (Advair HFA) gabapentin 400 mg capsule 400 mg PO TID PAIN 10/06/24 12/23/24 History ibuprofen 800 mg tablet 800 mg PO TID HEADACHE 10/06/24 12/23/24 History montelukast 10 mg tablet 10 mg PO DAILY ASTHMA 10/06/24 12/23/24 History pantoprazole 20 mg tablet,delayed 20 mg PO DAILY GERD 10/06/24 12/23/24 History release propranolol 20 mg tablet 20 mg PO BID HTN 10/06/24 12/23/24 History sertraline 100 mg tablet 100 mg PO DAILY MOOD 10/06/24 12/23/24 History sertraline 25 mg tablet 25 mg PO DAILY MOOD 10/06/24 12/23/24 History furosemide 20 mg tablet 20 mg PO DAILY PRN edema 12/25/24 12/23/24 History nicotine 21 mg/24 hr daily 1 patch topical DAILY PRN smoking 12/25/24 Unknown History transdermal patch cessation ondansetron 4 mg disintegrating 4 mg PO Q8H PRN PRN Nausea #10 tabs 12/25/24 Unknown Rx tablet Allergy/AdvReac Type Severity Reaction Status Date / Time Latex, Natural Rubber Allergy Rash Verified 12/25/24 11:24 Penicillins (PCN) AdvReac Nausea/Vom/ Verified 12/25/24 11:24 Diarrhea Surgical History History of section History of left heart catheterization (12/11/16) History of cholecystectomy Social History household members: none Smoking Status: Current every day smoker tobacco type: smokeless tobacco Smokeless tobacco user: chewing tobacco ROS ROS ED ROS Narrative See HPI EXAM Physical Exam Narrative Exam Narrative: Vital signs: Reviewed General: Alert and oriented x 3. No acute distress. BMI of 47 HEENT: Head is normocephalic and atraumatic, sinuses nontender, pupils equal round and reactive. Nares are patent. Oropharynx and throat exams normal. Neck: Supple without lymphadenopathy nontender Cardiovascular: Regular rate and rhythm, no murmurs. No rubs or gallops. Normal S1 and S2 Respiratory: Clear to auscultation bilaterally. No wheezes, rales, rhonchi Abdominal: Soft and mildly tender to palpation in right lower quadrant, suprapubic and left lower quadrants. Normal bowel sounds. No guarding or rebound. Nonsurgical abdomen Extremities: No tenderness. No bruising. Normal range of motion. Normal sensation. Skin: No rash or redness. Neurological: Cranial nerves II through XII are grossly intact. Normal strength and sensation. Normal cerebellar function The rest of the physical exam is unremarkable Const Vital Signs: 12/25/24 11:24 12/25/24 12:30 12/25/24 14:00 Temperature 100.0 F H Temperature Source Oral Pulse Rate 88 75 Respiratory Rate 16 20 H Blood Pressure 119/73 131/86 H Blood Pressure Mean 88 97 Pulse Ox 97 94 100 Oxygen Delivery Method Room Air 12/25/24 14:45 Temperature 98 F Temperature Source Pulse Rate 73 Respiratory Rate 18 Blood Pressure 147/91 H Blood Pressure Mean 109 Pulse Ox 99 Oxygen Delivery Method MDM MDM MDM Narrative Medical decision making narrative: Patient is a 54-year-old female presenting emergency department for lower abdominal pain, nausea, vomiting and subjective fever. Patient was seen and examined. Vitals are stable. Patient resting bed comfortably no acute distress. Differential includes but is not limited to: Gastroenteritis, colitis, UTI, appendicitis Patient given fluids and Zofran for symptomatic control. CBC with no leukocytosis and normal hemoglobin. CMP with mildly elevated alk phos 129 otherwise no significant normalities. Lipase within normal limits. Urinalysis no evidence of urinary tract infection. CT Abd pelvis shows no acute intra-abdominal abnormalities. Fatty infiltration of the liver. Scattered sigmoid diverticula. Patient was updated on the negative findings. She is feeling better after the Zofran and fluids. I explained this is likely a viral gastroenteritis that is causing her symptoms with the negative blood work, urine and CT. I prescribed her Zofran for home for symptomatic control. Encouraged her to drink lots of fluids at home. Patient discharged from the Emergency Department. I do not feel that the patient's evaluation reveals any acute reason for admission at this time. I instructed them to either follow-up with their primary care physician or promptly return to the Emergency Department for reevaluation should symptoms worsen or new symptoms develop. I explained what symptoms would indicate the need to return to the emergency department. Shared decision making was used. The patient voiced understanding of the treatment plan and is agreeable with it. Clinical impression Nausea and vomiting Abdominal pain History & Record Review Discussion w/independent historian: Patient Lab Data Attestation: I reviewed the patient's lab results. Labs: Laboratory Results - last 24 hr 12/25/24 12/25/24 12:05 13:05 WBC 8.6 RBC 4.68 Hgb 13.0 Hct 40.0 MCV 85.5 MCH 27.8 MCHC 32.5 RDW Std Deviation 38.8 RDW Coeff of Pb 12.5 Plt Count 278 MPV 9.6 Immature Gran % (Auto) 0.500 Neut % (Auto) 70.0 Lymph % (Auto) 20.9 Winkler % (Auto) 5.9 Eos % (Auto) 2.4 Baso % (Auto) 0.3 Absolute Neuts (auto) 6.0 Absolute Lymphs (auto) 1.80 Nucleated RBC % 0 Sodium 138 Potassium 4.0 Chloride 104 Carbon Dioxide 25.3 Anion Gap 9 BUN 14 Creatinine 0.70 Estim Creat Clear Calc 118.31 Est GFR (MDRD) Non-Af 102 BUN/Creatinine Ratio 19.7 Glucose 106 H Calcium 11.3 H Total Bilirubin 0.39 AST 16 ALT 16 Alkaline Phosphatase 129 H Total Protein 7.6 Albumin 4.2 Globulin 3.4 Albumin/Globulin Ratio 1.2 Lipase 28 Urine Color Yellow Urine Clarity Clear Urine pH 6.0 Ur Specific Campus 1.020 Urine Protein 15 H Urine Glucose (UA) Normal Urine Ketones Negative Urine Occult Blood Negative Urine Nitrite Negative Urine Bilirubin Negative Urine Urobilinogen Normal Ur Leukocyte Esterase Negative Urine RBC 0-5 SEEN Urine WBC 0-5 SEEN Ur Squamous Epith Cells 5-10 SEEN Urine Bacteria 1+ Urine Mucus 1+ Radiography Diagnostic Testing: Clinical Impression(s) from Imaging Studies Abdomen/Pelvis CT 12/25/24 13:55 IMPRESSION: Fatty infiltration of the liver. Status post cholecystectomy. Scattered sigmoid diverticula. Reading Location: [place] [id number] Discharge Plan Triage Chief Complaint: Nausea/Vomiting ED Provider: Gita Gunderson Dx/Rx/DC Orders Clinical Impression: Abdominal pain, Nausea & vomiting Instructions: Abdominal Pain, ED Gastroenteritis, Viral (Adult), ED Vomiting (Adult) Prescriptions: New ondansetron 4 mg tablet,disintegrating 4 mg PO Q8H PRN PRN (Reason: Nausea) Qty: 10 0RF No Action ferrous sulfate [FeroSul] 325 mg (65 mg iron) tablet 325 mg PO DAILY albuterol sulfate [Ventolin HFA] 90 mcg/actuation HFA aerosol inhaler 2 puff inhalation Q6H PRN (Reason: Shortness Of Breath) simvastatin 20 MG tablet 20 mg PO QHS levetiracetam [Keppra] 1,000 mg tablet 1,000 mg PO BID Qty: 60 0RF gabapentin 400 mg capsule 400 mg PO TID aspirin 81 mg tablet,delayed release (DR/EC) 81 mg PO DAILY fluticasone propion-salmeterol [Advair HFA] 115-21 mcg/actuation HFA aerosol inhaler 2 puff inhalation BID cholecalciferol (vitamin D3) [Vitamin D3] 125 mcg (5,000 unit) tablet 125 mcg PO DAILY ibuprofen 800 mg tablet 800 mg PO TID sertraline 100 mg tablet 100 mg PO DAILY Patient Comments: WITH 25MG pantoprazole 20 mg tablet,delayed release (DR/EC) 20 mg PO DAILY sertraline 25 mg tablet 25 mg PO DAILY Patient Comments: WITH 100MG montelukast 10 mg tablet 10 mg PO DAILY propranolol 20 mg tablet 20 mg PO BID furosemide 20 mg tablet 20 mg PO DAILY PRN (Reason: edema) nicotine 21 mg/24 hr patch 24 hour 1 patch topical DAILY PRN (Reason: smoking cessation) sumatriptan succinate [Imitrex] 25 mg tablet 25 mg PO Q2H PRN (Reason: migraine headache) Qty: 10 0RF Rx Instructions: do not exceed 8 doses per 24 hrs Stand Alone Forms: ED Work / School Excuse Primary Care Provider: Stephany Livingston Referrals: Stephany Livingston MD [Primary Care Provider, Internal Medicine] - As soon as possible Activity Restrictions/Additional Instructions: Take the Zofran every 8 hours as needed for nausea and vomiting. Drink lots of fluids at home. Your evaluation in the Emergency Department did not reveal any acute reason for admission. However, I want to emphasize that you may be early in the course of a disease process or illness even if it is not present. For this reason you should follow-up within 24 hours for reevaluation with either your primary care physician or if necessary back here in the Emergency Department. You should return to the Emergency Department immediately if your symptoms worsen or new symptoms develop. Print Language: Kazakh Disposition Disposition: Home, Self Care Discharge Date/Time: 12/25/24 14:47
== END 2024-12-25 14:47 | disposition home or self-care (01) ==
PROVIDERS: Emergency Provider Student in an Organized Health Care Education/Training Program; PCP Internal Medicine; Visit Provider Student in an Organized Health Care Education/Training Program
DX: R11.2 Nausea with vomiting, unspecified (principal); J44.9 Chronic obstructive pulmonary disease, unspecified; E11.22 Type 2 diabetes mellitus with diabetic chronic kidney disease; N18.9 Chronic kidney disease, unspecified; I12.9 Hypertensive chronic kidney disease with stage 1 through stage 4 chronic kidney disease, or unspecified chronic kidney disease; Z86.73 Personal history of transient ischemic attack (TIA), and cerebral infarction without residual deficits; I25.2 Old myocardial infarction; Z79.899 Other long term (current) drug therapy; Z79.82 Long term (current) use of aspirin; Z79.51 Long term (current) use of inhaled steroids; F43.10 Post-traumatic stress disorder, unspecified; Z90.49 Acquired absence of other specified parts of digestive tract; F17.220 Nicotine dependence, chewing tobacco, uncomplicated; R10.30 Lower abdominal pain, unspecified
CPT/HCPCS: 74177; 80053; 81001; 83690; 85025; 96361; 96374; 99285; Q9967; A4216; J2405

== ENCOUNTER 2024-12-27 15:20 | Emergency (ER) | payer MEDICAID, SELFPAY ==
[2024-12-27 15:22] VITALS: BP 117/73; PULSE 74; RESP 74; TEMP 36.9; O2SAT 18; BMI 48.0
--- NOTE | 2024-12-27 15:45 | EKG12_ITS ---
Test Reason : SEIZURE Blood Pressure : */* mmHG Vent. Rate : 65 BPM Atrial Rate : 65 BPM P-R Int : 156 ms QRS Dur : 90 ms QT Int : 396 ms P-R-T Axes : 9 -35 1 degrees QTcB Int : 411 ms Normal sinus rhythm Left axis deviation Abnormal ECG Confirmed by DANIEL BEEBE, FREDY ([id number]), script editor MARYA OGLESBY ([id number]) on 12/28/2024 9:53:22 AM Referred By: RAINA Confirmed By: FREDY SANCHEZ MD
--- NOTE | 2024-12-27 15:45 | CT_ITS ---
PROCEDURE: BRAIN/HEAD WITHOUT CONTRAST 12/27/2024 REASON FOR EXAM: SYNCOPE, TRAUMA TECHNIQUE: Procedure Code: CTBR Modality: CT Procedure: BRAIN/HEAD WITHOUT CONTRAST Coronal and Sagittal reconstruction series were provided. One or more dose reduction techniques were used (e.g., Automated exposure control, adjustment of the mA and/or kV according to patient size, use of iterative reconstruction technique. COMPARISON: 04/12/2024. FINDINGS: The ventricles are normal in size and midline in position. Mild chronic microvascular ischemia. No evidence of acute hemorrhage or infarction. No extra-axial blood or fluid collections. The paranasal sinuses and mastoid air cells are clear. Stable right frontal scalp lesion measuring [address]/Brain/Head without Contrast IMPRESSION: No acute intracranial abnormality. Chronic and ancillary findings as above. Reading Location: [id number]
--- NOTE | 2024-12-27 15:46 | EX.ED.DYSGE1 ---
HPI History of Present Illness Chief Complaint: Seizure Narrative Narrative: 54-year-old female past medical history of epilepsy takes Keppra 1000 mg twice a day presents with seizure versus syncope. She states she was getting ready for work this morning at 530, fell on the floor, and woke about an hour ago. She does not remember anything. However, she has not had a loss of bowel or bladder. Last previous breakthrough seizure was a few months ago. She sees Dr. Barrientos with the [facility] as her neurologist. She states she has been sick recently with nausea and vomiting and was seen in the emergency department 2 days ago. She states that they told her she had a viral infection and that is why she had all the nausea and vomiting. She states that she has been unconscious and on the floor for approximately 9 hours. She complains of right hip pain. [facility] Medical History Stimulant use disorder PTSD (post-traumatic stress disorder) Bipolar disorder, unspecified Separation of left acromioclavicular joint Left shoulder pain CKD (chronic kidney disease) History of heart attack History of CVA (cerebrovascular accident) (2002) Type 2 diabetes mellitus Essential hypertension COPD (chronic obstructive pulmonary disease) Asthma Epilepsy Home Medications ?Medication ?Instructions ?Recorded ?Last Taken ?Type simvastatin 20 mg tablet 20 mg PO QHS CHOLESTEROL 01/26/17 12/23/24 History albuterol sulfate 90 mcg/actuation 2 puff inhalation Q6H PRN 10/03/21 12/23/24 History aerosol inhaler (Ventolin HFA) Shortness Of Breath ferrous sulfate 325 mg (65 mg 325 mg PO DAILY SUPPLEMENT 10/03/21 12/23/24 History iron) tablet (FeroSul) sumatriptan succinate 25 mg tablet 25 mg PO Q2H PRN migraine headache 10/19/23 Unknown Rx (Imitrex) #10 tabs levetiracetam 1,000 mg tablet 1,000 mg PO BID SEIZURE #60 tabs 04/12/24 Unknown Rx (Keppra) aspirin 81 mg tablet,delayed 81 mg PO DAILY HEART HEALTH 10/06/24 12/23/24 History release cholecalciferol (vitamin D3) 125 125 mcg PO DAILY SUPPLEMENT 10/06/24 12/23/24 History mcg (5,000 unit) tablet (Vitamin D3) fluticasone propionate 115 2 puff inhalation BID SOB 10/06/24 12/23/24 History mcg-salmeterol 21 mcg/actuation HFA inhaler (Advair HFA) gabapentin 400 mg capsule 400 mg PO TID PAIN 10/06/24 12/23/24 History ibuprofen 800 mg tablet 800 mg PO TID HEADACHE 10/06/24 12/23/24 History montelukast 10 mg tablet 10 mg PO DAILY ASTHMA 10/06/24 12/23/24 History pantoprazole 20 mg tablet,delayed 20 mg PO DAILY GERD 10/06/24 12/23/24 History release propranolol 20 mg tablet 20 mg PO BID HTN 10/06/24 12/23/24 History sertraline 100 mg tablet 100 mg PO DAILY MOOD 10/06/24 12/23/24 History sertraline 25 mg tablet 25 mg PO DAILY MOOD 10/06/24 12/23/24 History furosemide 20 mg tablet 20 mg PO DAILY PRN edema 12/25/24 12/23/24 History nicotine 21 mg/24 hr daily 1 patch topical DAILY PRN smoking 12/25/24 Unknown History transdermal patch cessation ondansetron 4 mg disintegrating 4 mg PO Q8H PRN PRN Nausea #10 tabs 12/25/24 Unknown Rx tablet Allergy/AdvReac Type Severity Reaction Status Date / Time Latex, Natural Rubber Allergy Rash Verified 12/27/24 15:25 Penicillins (PCN) AdvReac Nausea/Vom/ Verified 12/27/24 15:25 Diarrhea Family History no significant family his Surgical History History of section History of left heart catheterization (12/11/16) History of cholecystectomy Social History household members: none current occupational status: employed Smoking Status: Current every day smoker tobacco type: smokeless tobacco Smokeless tobacco user: chewing tobacco ROS ROS ED ROS Narrative Review of systems positive for right hip pain. Previous nausea and vomiting, evaluated in the ED 2 days ago. States woke up this morning at 530, and either had a syncopal episode or seizure, and has been on the floor for 9 hours. Denies other injury except for diffuse right hip pain. No loss of bowel or bladder. EXAM Physical Exam Narrative Exam Narrative: Afebrile. Vital signs noted. Nontoxic-appearing. Cardiovascular examination feels a regular rate and rhythm. Lungs are clear to auscultation bilaterally. Abdomen is soft and nontender without guarding or rebound. Positive bowel sounds. Diffuse tenderness palpation right hip. No noted shortening or external rotation. Pelvis stable. Able to flex and extend at knee and hip. No pain with logrolling of femur. Appears neurovascularly intact distally. Const Vital Signs: 12/27/24 15:22 12/27/24 17:21 Temperature 98.5 F Temperature Source Oral Pulse Rate 74 68 Respiratory Rate 74 H 16 Blood Pressure 117/73 126/95 H Blood Pressure Mean 87 105 Pulse Ox 18 96 Oxygen Delivery Method Room Air MDM MDM MDM Narrative Medical decision making narrative: Differential diagnosis includes but not limited to seizure versus syncope versus dehydration versus other electrolyte abnormality. Will obtain a CT of the brain as she fell on the floor and hit her head, and does not remember the events of the last 9 hours. I have low suspicion for intracranial hemorrhage as currently she has a normal neurological examination. She has diffuse tenderness to palpation of the right hip so she may have more of a contusion than a fracture. She may have a pubic ramus fracture causing her pain. I will obtain baseline laboratories as well as a Keppra level. She was bolused normal saline 1 L intravenously. EKG was obtained and interpreted by myself independently. Demonstrates normal sinus rhythm at 65 bpm without ectopy or acute ST changes. No STEMI. I was called to the room regarding patient having seizure-like activity at approximately 1620 p.m. patient was having full body shaking. However, her arm avoidance test was positive. She had been given Ativan 1 mg intravenously. I do not feel that this was a breakthrough seizure and it may have been more of functional neurologic activity/nonepileptic seizure/psychogenic. I independently interpreted the x-ray of the pelvis and the hip on the right, and there is no evidence of acute fracture. I reviewed the radiology report which confirms my independent interpretation. I reviewed the radiology report of the CT of the brain and there is no acute hemorrhage, no acute process. Review of her laboratory work shows normal white count of 10.0, hemoglobin 12.2, hematocrit 38.2, platelet count normal at 282. CMP is grossly unremarkable with a normal BUN of 11 and creatinine 0.71, glucose 117 with a normal anion gap of 9. Alk phos is slightly elevated at 122 but when compared to prior labs, this is a chronic elevation. Urinalysis obtained and reviewed and is negative for infection. CPK is normal in the 80s. Hence, I do not think she has rhabdomyolysis. As her Keppra levels are still pending, I do not feel she requires observation or admission. I do not feel she is meeting any criteria and I do not feel that this is a recurrent seizure/breakthrough seizure as she had a nonepileptic episode here in the emergency department. I feel she can be discharged to follow-up with her primary care provider as well as her neurologist. Disposition is discharged home in stable condition. History & Record Review Discussion w/independent historian: Patient Additional record(s) reviewed:: Prior ED visit (Seen 2 days ago for abdominal pain nausea and vomiting with negative workup) and Prior labs (Previously elevated alk phos) Lab Data Attestation: I reviewed the patient's lab results. Labs: Laboratory Results - last 24 hr 12/27/24 12/27/24 16:27 16:43 WBC 10.0 RBC 4.45 Hgb 12.2 Hct 38.2 MCV 85.8 MCH 27.4 MCHC 31.9 L RDW Std Deviation 39.1 RDW Coeff of Pb 12.6 Plt Count 282 MPV 9.7 Immature Gran % (Auto) 0.700 Neut % (Auto) 75.1 H Lymph % (Auto) 16.4 L Andrew % (Auto) 5.0 Eos % (Auto) 2.4 Baso % (Auto) 0.4 Absolute Neuts (auto) 7.5 Absolute Lymphs (auto) 1.63 Nucleated RBC % 0 Sodium 140 Potassium 3.9 Chloride 106 Carbon Dioxide 25.2 Anion Gap 9 BUN 11 Creatinine 0.71 Estim Creat Clear Calc 118.13 Est GFR (MDRD) Non-Af 101 BUN/Creatinine Ratio 15.3 Glucose 117 H Calcium 10.9 Total Bilirubin 0.39 AST 18 ALT 14 Alkaline Phosphatase 122 H Total Creatine Kinase 89 Total Protein 6.9 Albumin 3.9 Globulin 3.0 Albumin/Globulin Ratio 1.3 Urine Color Yellow Urine Clarity Clear Urine pH 5.0 Ur Specific [place] 1.020 Urine Protein Negative Urine Glucose (UA) Normal Urine Ketones Negative Urine Occult Blood Negative Urine Nitrite Negative Urine Bilirubin Negative Urine Urobilinogen Normal Ur Leukocyte Esterase 25 H Urine RBC 0 SEEN Urine WBC 0-5 SEEN Ur Squamous Epith Cells 0-5 SEEN Urine Bacteria 0 SEEN Urine Mucus 0 SEEN Radiography Diagnostic Testing: Clinical Impression(s) from Imaging Studies Brain CT 12/27/24 15:45 IMPRESSION: No acute intracranial abnormality. Chronic and ancillary findings as above. Reading Location: [address] Hip/Pelvis X-Ray 12/27/24 16:50 IMPRESSION: No acute fracture or dislocation. Reading Location: [facility] Discharge Plan Triage Chief Complaint: Seizure ED Provider: Tom Gorman Dx/Rx/DC Orders Clinical Impression: Syncope, Memory loss of unknown cause, Psychogenic nonepileptic seizure Instructions: ED ALOC, ED Fainting, Uncertain Cause, ED Functional Neurological ... Prescriptions: No Action ferrous sulfate [FeroSul] 325 mg (65 mg iron) tablet 325 mg PO DAILY albuterol sulfate [Ventolin HFA] 90 mcg/actuation HFA aerosol inhaler 2 puff inhalation Q6H PRN (Reason: Shortness Of Breath) simvastatin 20 MG tablet 20 mg PO QHS levetiracetam [Keppra] 1,000 mg tablet 1,000 mg PO BID Qty: 60 0RF gabapentin 400 mg capsule 400 mg PO TID aspirin 81 mg tablet,delayed release (DR/EC) 81 mg PO DAILY fluticasone propion-salmeterol [Advair HFA] 115-21 mcg/actuation HFA aerosol inhaler 2 puff inhalation BID cholecalciferol (vitamin D3) [Vitamin D3] 125 mcg (5,000 unit) tablet 125 mcg PO DAILY ibuprofen 800 mg tablet 800 mg PO TID sertraline 100 mg tablet 100 mg PO DAILY Patient Comments: WITH 25MG pantoprazole 20 mg tablet,delayed release (DR/EC) 20 mg PO DAILY sertraline 25 mg tablet 25 mg PO DAILY Patient Comments: WITH 100MG montelukast 10 mg tablet 10 mg PO DAILY propranolol 20 mg tablet 20 mg PO BID furosemide 20 mg tablet 20 mg PO DAILY PRN (Reason: edema) nicotine 21 mg/24 hr patch 24 hour 1 patch topical DAILY PRN (Reason: smoking cessation) ondansetron 4 mg tablet,disintegrating 4 mg PO Q8H PRN PRN (Reason: Nausea) Qty: 10 0RF sumatriptan succinate [Imitrex] 25 mg tablet 25 mg PO Q2H PRN (Reason: migraine headache) Qty: 10 0RF Rx Instructions: do not exceed 8 doses per 24 hrs Primary Care Provider: Stephany Livingston Referrals: Stephany Livingston MD [Primary Care Provider, Internal Medicine] Activity Restrictions/Additional Instructions: Follow-up with your primary care provider and/or your neurologist Dr. Barrientos. Continue your previous medications and routines. Print Language: Uzbek Disposition Disposition: Home, Self Care
[2024-12-27] MEDS: 0.9% Normal Saline (1000mL) 1,000 ML 999 ML IV (16:22)
[2024-12-27 16:49] LABS: Mucous, Urine 0 SEEN /hpf (<or=2+); Red Blood Cells-Urine 0 SEEN /hpf (0-5)
--- NOTE | 2024-12-27 16:50 | RAD_ITS ---
PROCEDURE: RIGHT HIP, UNI W/ PELVIS 2-3 VIEWS 12/27/2024 REASON FOR EXAM: TRAUMA TECHNIQUE: Procedure Code: [facility] Modality: DX Procedure: HIP, UNI W/ PELVIS 2-3 VIEWS Laterality: Right COMPARISON: None. FINDINGS: No acute fracture or dislocation. Alignment is anatomic. Preserved joint spaces. No aggressive osseous lesion. No marked soft tissue swelling or radiopaque foreign body. RAD/HIP, UNI W/ Pelvis 2-3 Views IMPRESSION: No acute fracture or dislocation. Reading Location: [id number]
[2024-12-27 17:06] LABS: AST(SGOT) 18 U/L (<=31); Alanine Aminotransfer ALT/SGPT 14 U/L (<=34); Albumin, Serum 3.9 g/dL (3.5-5.0); Alkaline Phosphatase 122 U/L (35-104); Anion Gap 9 (5-15); BUN 11 mg/dL (4-19); BUN/Creat Ratio 15.3 RATIO (10-20); Calcium,Total 10.9 mg/dL (7.6-11.0); Carbon Dioxide 25.2 mmol/L (21.0-32.0); Chloride 106 mmol/L (98-108); Estimated Creatinine Clearance 118.13 ml/min (50-250); Globulin 3.0 g/dL (2.2-4.2); Glucose 117 mg/dL (70-99); Potassium 3.9 mmol/L (3.3-5.1)
[2024-12-27 17:21] VITALS: BP 126/95; PULSE 68; RESP 16; O2SAT 96
[2024-12-27 17:21] LABS: Hematocrit 38.2 % (37-47); Hemoglobin 12.2 g/dL (12.0-15.0); Immature Granulocytes Count 0.070 X10^3/uL (0.0-0.0); Mean Corp Hgb Conc 31.9 g/dL (32-36); Mean Corpuscular Volume 85.8 fL (81-99); Mean Platelet Vol. 9.7 fl (6.2-12.0); NRBC Flagged by Analyzer 0 % (0-5); Platelet Count 282 K/mm3 (150-450); RBC Distribution Width CV 12.6 % (11.6-14.6); RBC Distribution Width SD 39.1 fl (35.1-43.9); Red Blood Count 4.45 M/mm3 (4.2-5.4); White Blood Count 10.0 K/mm3 (4.4-11.0)
[2024-12-27 17:22] LABS: Color, Urine Yellow (Yellow); Glucose, Dipstick Normal (Normal); Ketone-Dipstick Negative (Negative); Leukocyte Esterase-Dipstick 25 /ul (Negative); Nitrite-Dipstick Negative (Negative); Occult Blood-Urine Negative /ul (Negative); Protein-Dipstick Negative (Negative); Specific Gravity, Urine 1.020 (1.002-1.030); Urine Bilirubin Dipstick Negative (Negative)
[2024-12-27 17:31] LABS: Squamous Epithelial Cells - UA 0-5 SEEN /hpf (5-10)
[2024-12-27 18:25] LABS: CPK Total, Creatine Kinase 89 U/L (24-195)
[2024-12-27 18:45] VITALS: BP 126/95; PULSE 68; RESP 16; TEMP 36.7; O2SAT 96
[2024-12-31 10:07] LABS: KEPPRA (LEVETIRACETAM) 26.0 ug/mL (10.0-40.0)
== END 2024-12-27 19:02 | disposition home or self-care (01) ==
PROVIDERS: Emergency Provider Emergency Medicine; PCP Internal Medicine; Visit Provider Emergency Medicine
DX: G40.409 Other generalized epilepsy and epileptic syndromes, not intractable, without status epilepticus (principal); J44.9 Chronic obstructive pulmonary disease, unspecified; E11.22 Type 2 diabetes mellitus with diabetic chronic kidney disease; I12.9 Hypertensive chronic kidney disease with stage 1 through stage 4 chronic kidney disease, or unspecified chronic kidney disease; N18.9 Chronic kidney disease, unspecified; R41.3 Other amnesia; R55 Syncope and collapse; Z79.899 Other long term (current) drug therapy; Z86.73 Personal history of transient ischemic attack (TIA), and cerebral infarction without residual deficits; I25.2 Old myocardial infarction; Z79.82 Long term (current) use of aspirin; Z79.51 Long term (current) use of inhaled steroids; Z90.49 Acquired absence of other specified parts of digestive tract
CPT/HCPCS: 70450; 73502; 80053; 80177; 81001; 82550; 85025; 93005; 96361; 96374; 99285; A4216

== ENCOUNTER 2024-12-28 11:07 | Emergency (ER) | payer MEDICAID, SELFPAY ==
[2024-12-28 11:07] VITALS: BP 143/79; PULSE 57; RESP 18; TEMP 37.3; O2SAT 97
[2024-12-28 11:08] VITALS: BP 147/99; PULSE 59; RESP 15; TEMP 37.3; O2SAT 98; BMI 47.5
[2024-12-28 12:02] VITALS: BP 107/73; BP 111/86; BP 127/111; PULSE 40; PULSE 55
--- NOTE | 2024-12-28 12:02 | EKG12_ITS ---
Test Reason : GENERAL Blood Pressure : */* mmHG Vent. Rate : 56 BPM Atrial Rate : 56 BPM P-R Int : 168 ms QRS Dur : 94 ms QT Int : 430 ms P-R-T Axes : 51 -21 -6 degrees QTcB Int : 414 ms Sinus bradycardia Otherwise normal ECG Confirmed by DANIEL BEEBE, FREDY ([id number]), business editor SHAKA SCHERER ([id number]) on 12/29/2024 8:32:16 AM Referred By: Confirmed By: FREDY SANCHEZ MD
--- NOTE | 2024-12-28 12:17 | EX.ED.DYSGE1 ---
HPI History of Present Illness Chief Complaint: Seizure Narrative Narrative: Chief complaint and HPI: 54-year-old female with past medical history of PTSD, bipolar disorder, DM2, HTN, epilepsy presents for evaluation of near syncope. History taken by patient as well as medical record. Patient was seen in our emergency department yesterday for seizure versus syncope. She states she was getting ready for work yesterday morning when she fell on the floor and woke up after 9 hours. She did not remember anything. She had laboratory workup including CT head that was unremarkable and patient was ultimately discharged. She did had a nonepileptic episode in the emergency department. Patient states since discharge yesterday she has had labile mood. States she was at work today sitting down when she had a near syncope episode. States she got warm, nauseous, and tunnel vision. Triage note states that she was walking like she was drunk in a daze at work however patient states she was sitting down during the episode. EMS was called. Symptoms have already improved and resolved. She denies any fever, chills, shortness of breath, chest pain abdominal pain, nausea, vomiting, dysuria. Denies any seizure-like activity today. Review of systems: See HPI Medications: As listed on the chart Allergies: As listed on the chart PFSH: Per chart Vital signs: As listed on the chart. Reviewed. Physical exam: Gen: A&O x3, NAD Head: Normocephalic, atraumatic Eyes: No sclera icterus, conjunctiva clear, PERRL, EOMI ENT: Moist mucous membranes, No facial asymmetry Neck: Trachea midline, No JVD CV: RRR, no murmurs, no peripheral edema Resp: Lungs CTA BL, no w/r/c GI: Abd soft, non-distended, non-tender, no r/r/g Musc: Full ROM, no deformity, strength +5/5 in all extremities, no pronator drift, no ataxia Skin: Warm, dry Neuro: Alert, oriented, sensation intact Psych: Cooperative, appropriate mood and affect [facility] Medical History Stimulant use disorder PTSD (post-traumatic stress disorder) Bipolar disorder, unspecified Separation of left acromioclavicular joint Left shoulder pain CKD (chronic kidney disease) History of heart attack History of CVA (cerebrovascular accident) (2002) Type 2 diabetes mellitus Essential hypertension COPD (chronic obstructive pulmonary disease) Asthma Epilepsy Home Medications ?Medication ?Instructions ?Recorded ?Last Taken ?Type simvastatin 20 mg tablet 20 mg PO QHS CHOLESTEROL 01/26/17 12/27/24 History albuterol sulfate 90 mcg/actuation 2 puff inhalation Q6H PRN 10/03/21 12/23/24 History aerosol inhaler (Ventolin HFA) Shortness Of Breath ferrous sulfate 325 mg (65 mg 325 mg PO DAILY SUPPLEMENT 10/03/21 12/28/24 History iron) tablet (FeroSul) sumatriptan succinate 25 mg tablet 25 mg PO Q2H PRN migraine headache 10/19/23 12/26/24 Rx (Imitrex) #10 tabs levetiracetam 1,000 mg tablet 1,000 mg PO BID SEIZURE #60 tabs 04/12/24 12/28/24 Rx (Keppra) aspirin 81 mg tablet,delayed 81 mg PO DAILY HEART HEALTH 10/06/24 12/28/24 History release cholecalciferol (vitamin D3) 125 125 mcg PO DAILY SUPPLEMENT 10/06/24 12/28/24 History mcg (5,000 unit) tablet (Vitamin D3) fluticasone propionate 115 2 puff inhalation BID SOB 10/06/24 12/27/24 History mcg-salmeterol 21 mcg/actuation HFA inhaler (Advair HFA) gabapentin 400 mg capsule 400 mg PO TID PAIN 10/06/24 12/28/24 History ibuprofen 800 mg tablet 800 mg PO TID HEADACHE 10/06/24 12/23/24 History montelukast 10 mg tablet 10 mg PO DAILY ASTHMA 10/06/24 12/28/24 History pantoprazole 20 mg tablet,delayed 20 mg PO DAILY GERD 10/06/24 12/28/24 History release propranolol 20 mg tablet 20 mg PO BID HTN 10/06/24 12/28/24 History sertraline 100 mg tablet 100 mg PO DAILY MOOD 10/06/24 12/28/24 History sertraline 25 mg tablet 25 mg PO DAILY MOOD 10/06/24 12/28/24 History furosemide 20 mg tablet 20 mg PO DAILY PRN edema 12/25/24 12/27/24 History nicotine 21 mg/24 hr daily 1 patch topical DAILY PRN smoking 12/25/24 12/21/24 History transdermal patch cessation fluticasone propionate 50 1 spray intranasal Q12H PRN 12/28/24 12/28/24 History mcg/actuation nasal allergy symptoms spray,suspension ondansetron 4 mg disintegrating 4 mg PO Q8H PRN Nausea 12/28/24 12/26/24 History tablet Allergy/AdvReac Type Severity Reaction Status Date / Time Latex, Natural Rubber Allergy Rash Verified 12/27/24 15:25 Penicillins (PCN) AdvReac Nausea/Vom/ Verified 12/27/24 15:25 Diarrhea Family History no significant family his Surgical History History of section History of left heart catheterization (12/11/16) History of cholecystectomy Social History household members: none current occupational status: employed Smoking Status: Current every day smoker tobacco type: smokeless tobacco Smokeless tobacco user: chewing tobacco EXAM Physical Exam Const Vital Signs: 12/28/24 11:07 12/28/24 11:08 12/28/24 12:02 Temperature 99.1 F 99.1 F Temperature Source Oral Oral Pulse Rate 57 L 59 L Pulse Rate [Lying] 55 L Pulse Rate [Sitting (for 1 minute prior to obtaining)] 55 L Pulse Rate [Standing (for 1 minute prior to obtaining)] 40 L Respiratory Rate 18 15 Blood Pressure 143/79 H 147/99 H Blood Pressure [Lying] 107/73 Blood Pressure [Sitting (for 1 minute prior to obtaining)] 111/86 H Blood Pressure [Standing (for 1 minute prior to obtaining)] 127/111 H Blood Pressure Mean 100 115 Blood Pressure Mean [Lying] 84 Blood Pressure Mean [Sitting (for 1 minute prior to obtaining)] 94 Blood Pressure Mean [Standing (for 1 minute prior to obtaining)] 116 Pulse Ox 97 98 Oxygen Delivery Method Room Air Room Air 12/28/24 13:00 12/28/24 15:00 Temperature 98.4 F Temperature Source Oral Pulse Rate 58 L 59 L Pulse Rate [Lying] Pulse Rate [Sitting (for 1 minute prior to obtaining)] Pulse Rate [Standing (for 1 minute prior to obtaining)] Respiratory Rate 14 19 H Blood Pressure 133/100 H 100/54 L Blood Pressure [Lying] Blood Pressure [Sitting (for 1 minute prior to obtaining)] Blood Pressure [Standing (for 1 minute prior to obtaining)] Blood Pressure Mean 111 69 Blood Pressure Mean [Lying] Blood Pressure Mean [Sitting (for 1 minute prior to obtaining)] Blood Pressure Mean [Standing (for 1 minute prior to obtaining)] Pulse Ox 98 97 Oxygen Delivery Method Room Air Room Air MDM MDM MDM Narrative Medical decision making narrative: 54-year-old female with past medical history of PTSD, bipolar disorder, DM2, HTN, epilepsy presents for evaluation of near syncope. History taken by patient as well as medical record. Patient was seen in our emergency department yesterday as well, see HPI. On presentation, patient no acute distress. Vitals are stable other than known bradycardia and mild hypertension. Differential diagnosis includes but is not limited to near syncope, electrolyte abnormality, dehydration, arrhythmia, PE, intoxication, substance abuse, suspect less likely intracranial abnormality or recent pathology. NS bolus ordered. Near syncope workup ordered. Orthostatic vital signs negative. EKG and chest x-ray reviewed. CBC with mild leukocytosis of 11.1. No anemia. D-dimer unremarkable. BMP unremarkable except for mild hyperglycemia. Troponin unremarkable x 2. UA negative for UTI. Alcohol level unremarkable. CT of the brain shows mild cerebral atrophy. Stable partially calcified nodule in the scalp overlying the right frontal bone. CTA head and neck shows no significant vascular abnormality. Urine drug screen positive for benzodiazepines. At this point in time, no clear etiology for patient's near syncope. She has not had any episode here in the emergency department. She has ambulated to the bathroom without difficulty. Patient stable to discharge home. Follow-up with PCP. Patient updated of all results and confirmed understanding the plan. EKG: Interpreted by me/EM physician: EKG shows sinus bradycardia without any acute ischemic changes heart rate 57. On chart review, patient has a history of bradycardia. Diagnostic: Interpreted by me/EM physician: Chest x-ray without pneumonia, effusion, cardiomegaly, pneumothorax. Impression: 1. Near syncope Lab Data Labs: Laboratory Results - last 24 hr 12/28/24 12/28/24 12/28/24 12:30 14:20 14:55 WBC 11.1 H RBC 4.35 Hgb 12.3 Hct 38.5 MCV 88.5 MCH 28.3 MCHC 31.9 L RDW Std Deviation 41.2 RDW Coeff of Pb 12.6 Plt Count 321 MPV 9.8 Immature Gran % (Auto) 0.500 Neut % (Auto) 66.6 Lymph % (Auto) 25.4 [place] % (Auto) 6.1 Eos % (Auto) 0.9 Baso % (Auto) 0.5 Absolute Neuts (auto) 7.4 Absolute Lymphs (auto) 2.82 Nucleated RBC % 0 D-Dimer Quant (PE/DVT) 0.45 Sodium 140 Potassium 4.3 Chloride 105 Carbon Dioxide 25.3 Anion Gap 9 BUN 15 Creatinine 0.84 Estim Creat Clear Calc 99.25 Est GFR (MDRD) Non-Af 82 BUN/Creatinine Ratio 18.0 Glucose 117 H Calcium 11.2 H Troponin T High Sens 8 Troponin T Hi Sens 2 Hr 6 Urine Color Yellow Urine Clarity Clear Urine pH 5.0 Ur Specific [place] 1.015 Urine Protein 15 H Urine Glucose (UA) Normal Urine Ketones Negative Urine Occult Blood Negative Urine Nitrite Negative Urine Bilirubin Negative Urine Urobilinogen Normal Ur Leukocyte Esterase 25 H Urine Opiates Screen NEGATIVE U Buprenorphine Qual NEGATIVE Ur Oxycodone Screen NEGATIVE Urine Methadone Screen NEGATIVE Urine Fentanyl Screen NEGATIVE Ur Barbiturates Screen NEGATIVE Ur Phencyclidine Scrn NEGATIVE Ur Amphetamines Screen NEGATIVE U Benzodiazepines Scrn PRESUMPTIVE POSITIVE Urine Cocaine Screen NEGATIVE U Cannabinoids Screen NEGATIVE Ethyl Alcohol < 10.1 Radiography Diagnostic Testing: Clinical Impression(s) from Imaging Studies Brain CT 12/28/24 13:00 IMPRESSION: NO SIGNIFICANT CHANGE SINCE THE PRIOR EXAM Mild cerebral atrophy. Stable partially calcified nodule in the scalp overlying the right frontal bone. Reading Location: [facility] Head/Neck CTA 12/28/24 13:00 IMPRESSION: No significant vascular abnormality is seen. Reading Location: [facility] Discharge Plan Triage Chief Complaint: Seizure ED Provider: Fito Frye Dx/Rx/DC Orders Prescriptions: No Action ferrous sulfate [FeroSul] 325 mg (65 mg iron) tablet 325 mg PO DAILY albuterol sulfate [Ventolin HFA] 90 mcg/actuation HFA aerosol inhaler 2 puff inhalation Q6H PRN (Reason: Shortness Of Breath) simvastatin 20 MG tablet 20 mg PO QHS levetiracetam [Keppra] 1,000 mg tablet 1,000 mg PO BID Qty: 60 0RF gabapentin 400 mg capsule 400 mg PO TID aspirin 81 mg tablet,delayed release (DR/EC) 81 mg PO DAILY fluticasone propion-salmeterol [Advair HFA] 115-21 mcg/actuation HFA aerosol inhaler 2 puff inhalation BID cholecalciferol (vitamin D3) [Vitamin D3] 125 mcg (5,000 unit) tablet 125 mcg PO DAILY Patient Comments: mowefr ibuprofen 800 mg tablet 800 mg PO TID Patient Comments: pt states she takes as needed sertraline 100 mg tablet 100 mg PO DAILY Patient Comments: WITH 25MG pantoprazole 20 mg tablet,delayed release (DR/EC) 20 mg PO DAILY sertraline 25 mg tablet 25 mg PO DAILY Patient Comments: WITH 100MG montelukast 10 mg tablet 10 mg PO DAILY propranolol 20 mg tablet 20 mg PO BID furosemide 20 mg tablet 20 mg PO DAILY PRN (Reason: edema) nicotine 21 mg/24 hr patch 24 hour 1 patch topical DAILY PRN (Reason: smoking cessation) fluticasone propionate 50 mcg/actuation spray,suspension 1 spray INTRANASAL Q12H PRN (Reason: allergy symptoms) ondansetron 4 mg tablet,disintegrating 4 mg PO Q8H PRN sumatriptan succinate [Imitrex] 25 mg tablet 25 mg PO Q2H PRN (Reason: migraine headache) Qty: 10 0RF Rx Instructions: do not exceed 8 doses per 24 hrs Primary Care Provider: Stephany Livingston Referrals: Stephany Livingston MD [Primary Care Provider, Internal Medicine] Print Language: Macedonian
[2024-12-28 12:41] LABS: Hematocrit 38.5 % (37-47); Hemoglobin 12.3 g/dL (12.0-15.0); Immature Granulocytes Count 0.060 X10^3/uL (0.0-0.0); Mean Corp Hgb Conc 31.9 g/dL (32-36); Mean Corpuscular Volume 88.5 fL (81-99); Mean Platelet Vol. 9.8 fl (6.2-12.0); NRBC Flagged by Analyzer 0 % (0-5); Platelet Count 321 K/mm3 (150-450); RBC Distribution Width CV 12.6 % (11.6-14.6); RBC Distribution Width SD 41.2 fl (35.1-43.9); Red Blood Count 4.35 M/mm3 (4.2-5.4); White Blood Count 11.1 K/mm3 (4.4-11.0)
[2024-12-28] MEDS: 0.9% Normal Saline (1000mL) 1,000 ML 1000 ML IV (12:47)
[2024-12-28 12:58] LABS: D-Dimer Quantitative (DVT/PE) 0.45 FEU/ug/m (0.27-0.49)
[2024-12-28 13:00] VITALS: BP 133/100; PULSE 58; RESP 14; O2SAT 98
--- NOTE | 2024-12-28 13:00 | CT_ITS ---
PROCEDURE: CTA HEAD AND NECK W/ CONTRAST 12/28/2024 REASON FOR EXAM: NEAR SYNCOPE TECHNIQUE: Procedure Code: [id number].HDNCK Modality: CT Procedure: CTA HEAD AND NECK W/ CONTRAST Multiplanar Sagittal and Coronal images were obtained. 3D post processing was performed CONTRAST: Isovue 370 VOLUME: 100 mL One or more dose reduction techniques were used (e.g., Automated exposure control, adjustment of the mA and/or kV according to patient size, use of iterative reconstruction technique). RADIATION DOSE SUMMARY: CTDlvol: 20.8 mGy DLP: 835 0.9 mGycm COMPARISON: None FINDINGS: Aortic Arch: Normal size and branching pattern. No significant atherosclerotic plaque. Brachiocephalic and Subclavians: Mild atherosclerotic plaque without significant stenosis. RIGHT Carotid: Right CCA: Unremarkable. Right ICA: Unremarkable. Right ECA: Unremarkable. LEFT Carotid: Left CCA: Unremarkable. Left ICA: Unremarkable. Left ECA: Unremarkable. Vertebrals: Codominant. Arise from the subclavians. Both vertebrals form the basilar. RIGHT Vertebral: Unremarkable. LEFT Vertebral: Unremarkable. Anatomy: [place] of [place] anatomy is normal. Aneurysm or avm: No intracranial aneurysms or large vascular malformations are identified. Anterior cerebral arteries: Unremarkable: Middle cerebral arteries: Unremarkable. Basilar artery: Unremarkable. Posterior cerebral arteries: Unremarkable. Other major branches of the posterior circulation: Unremarkable. Major venous structures: Unremarkable. Other findings: Once again, partially calcified nodule in the scalp overlying the right frontal bone. CT/CTA Head AND Neck W/ Contrast IMPRESSION: No significant vascular abnormality is seen. Reading Location: [place] [id number]
--- NOTE | 2024-12-28 13:00 | CT_ITS ---
PROCEDURE: BRAIN/HEAD WITHOUT CONTRAST 12/28/2024 REASON FOR EXAM: NEAR SYNCOPE TECHNIQUE: Procedure Code: CTBR Modality: CT Procedure: BRAIN/HEAD WITHOUT CONTRAST Coronal and Sagittal reconstruction series were provided. One or more dose reduction techniques were used (e.g., Automated exposure control, adjustment of the mA and/or kV according to patient size, use of iterative reconstruction technique. RADIATION DOSE SUMMARY: CTDlvol: 44.99 mGy DLP: 829.85 mGycm COMPARISON: December 27, 2024. FINDINGS: Brain: Stable in appearance CSF Spaces: Mild generalized cerebral atrophy Sinuses/Mastoids: Clear at visualized levels Bones: Stable 1.1 cm x 1.1 cm partially calcified soft tissue density overlying the right frontal scalp. CT/Brain/Head without Contrast IMPRESSION: NO SIGNIFICANT CHANGE SINCE THE PRIOR EXAM Mild cerebral atrophy. Stable partially calcified nodule in the scalp overlying the right frontal bone . Reading Location: [place] [id number]
--- NOTE | 2024-12-28 13:05 | RAD_ITS ---
PROCEDURE: CHEST PA AND LATERAL 12/28/2024 REASON FOR EXAM: NEAR SYNCOPE TECHNIQUE: Procedure Code: RADCXR Modality: DX Procedure: CHEST PA AND LATERAL COMPARISON: 04/12/2024. FINDINGS: The heart is normal in size. The lungs are clear. No acute osseous abnormalities. RAD/Chest PA and Lateral IMPRESSION: NO ACUTE FINDINGS. Reading Location: [id number]
[2024-12-28 13:14] LABS: Alcohol, Blood (Medical)-Serum < 10.1 mg/dL (<=10.0)
[2024-12-28 13:20] LABS: Troponin T High Sensitivity 8 ng/L (<=14)
[2024-12-28 13:26] LABS: Anion Gap 9 (5-15); BUN 15 mg/dL (4-19); BUN/Creat Ratio 18.0 RATIO (10-20); Calcium,Total 11.2 mg/dL (7.6-11.0); Carbon Dioxide 25.3 mmol/L (21.0-32.0); Chloride 105 mmol/L (98-108); Estimated Creatinine Clearance 99.25 ml/min (50-250); Glucose 117 mg/dL (70-99); Potassium 4.3 mmol/L (3.3-5.1)
[2024-12-28 15:00] VITALS: BP 100/54; PULSE 59; RESP 19; TEMP 36.9; O2SAT 97
[2024-12-28 15:01] LABS: Mucous, Urine 0 SEEN /hpf (<or=2+); Red Blood Cells-Urine 0 SEEN /hpf (0-5)
[2024-12-28 15:06] LABS: Color, Urine Yellow (Yellow); Glucose, Dipstick Normal (Normal); Ketone-Dipstick Negative (Negative); Leukocyte Esterase-Dipstick 25 /ul (Negative); Nitrite-Dipstick Negative (Negative); Occult Blood-Urine Negative /ul (Negative); Protein-Dipstick 15 mg/dl (Negative); Specific Gravity, Urine 1.015 (1.002-1.030); Urine Bilirubin Dipstick Negative (Negative)
[2024-12-28 15:19] LABS: Troponin T High Sens 2 HR 6 ng/L (<=14)
[2024-12-28 15:23] LABS: Barbiturate Urine NEGATIVE (< 200 ng/mL); Benzodiazepine Urine PRESUMPTIVE POSITIVE (< 200 ng/mL); PCP Urine NEGATIVE (< 25 ng/mL); THC Urine NEGATIVE (< 50 ng/mL)
[2024-12-28 15:34] VITALS: BP 97/62; PULSE 60; RESP 18; TEMP 37.1; O2SAT 97
[2024-12-28 15:35] LABS: Squamous Epithelial Cells - UA 0-5 SEEN /hpf (5-10)
== END 2024-12-28 16:03 | disposition home or self-care (01) ==
PROVIDERS: Emergency Provider Surgery; PCP Internal Medicine; Visit Provider Surgery
DX: R56.9 Unspecified convulsions (principal); J44.9 Chronic obstructive pulmonary disease, unspecified; E11.22 Type 2 diabetes mellitus with diabetic chronic kidney disease; I12.9 Hypertensive chronic kidney disease with stage 1 through stage 4 chronic kidney disease, or unspecified chronic kidney disease; R55 Syncope and collapse; Z86.73 Personal history of transient ischemic attack (TIA), and cerebral infarction without residual deficits; I25.2 Old myocardial infarction; Z79.899 Other long term (current) drug therapy; Z79.82 Long term (current) use of aspirin; Z79.51 Long term (current) use of inhaled steroids; Z90.49 Acquired absence of other specified parts of digestive tract; F17.220 Nicotine dependence, chewing tobacco, uncomplicated; F43.10 Post-traumatic stress disorder, unspecified; Z79.84 Long term (current) use of oral hypoglycemic drugs
CPT/HCPCS: 70450; 70496; 70498; 71046; 80048; 80307; 81001; 82077; 84484; 85025; 85379; 93005; 96360; 99285; Q9967; A4216

== ENCOUNTER 2025-02-22 10:29 | Observation (INO) | payer MEDICAID, SELFPAY ==
[2025-02-22] VITALS (17 sets, daily range): BP systolic 83–142; BP diastolic 67–116; PULSE 65–104; RESP 12–22; TEMP 36.6–36.9; O2SAT 93–100; BMI 45.8; BMI 46.5
--- NOTE | 2025-02-22 10:32 | EKG12_ITS ---
Test Reason : STROKE TEAM Blood Pressure : */* mmHG Vent. Rate : 71 BPM Atrial Rate : 71 BPM P-R Int : 166 ms QRS Dur : 92 ms QT Int : 392 ms P-R-T Axes : 49 -31 10 degrees QTcB Int : 425 ms Normal sinus rhythm Left axis deviation Incomplete right bundle branch block Abnormal ECG Confirmed by DELMI BEEBE, ANJANA ([id number]), rewrite editor SHAKA SCHERER ([id number]) on 02/26/2025 6:26:19 AM Referred By: Confirmed By: ANJANA AWAD MD
--- NOTE | 2025-02-22 10:32 | CT_ITS ---
PROCEDURE: STROKE BRAIN/HEAD WITHOUT CONT 02/22/2025 REASON FOR EXAM: NEURO DEFICIT, ACUTE, STROKE SUSPECTED TECHNIQUE: Procedure Code: CTBR.ST Modality: CT Procedure: STROKE BRAIN/HEAD WITHOUT CONT Coronal and Sagittal reconstruction series were provided. One or more dose reduction techniques were used (e.g., Automated exposure control, adjustment of the mA and/or kV according to patient size, use of iterative reconstruction technique. RADIATION DOSE SUMMARY: CTDlvol: 45 mGy DLP: 779 mGycm COMPARISON: December 28, 2024 FINDINGS: Brain: There is no evidence of hemorrhage, acute ischemia or mass. No extra- axial fluid collection, midline shift or mass effect. CSF Spaces: Mild generalized cerebral atrophy Sinuses/Mastoids: Clear Bones: No fracture Sebaceous cyst with partial calcification is seen over the right scalp. CT/STROKE Brain/Head without Cont IMPRESSION: No acute intracranial abnormality. Stroke Alert: As above The critical findings in the findings and impression above were relayed directl y by me by telephone to Nathaniel Olmstead on 02/22/2025 at 10:48 am EST with readback verification. Reading Location: [id number]
--- NOTE | 2025-02-22 10:32 | CT_ITS ---
PROCEDURE: STROKE CTA HEAD AND NECK W/CON 02/22/2025 REASON FOR EXAM: NEURO DEFICIT, ACUTE, STROKE SUSPECTED TECHNIQUE: Procedure Code: CTCTA.ST.HN Modality: CT Procedure: STROKE CTA HEAD AND NECK W/CON Multiplanar Sagittal and Coronal images were obtained. 3D post processing was performed CONTRAST: Isovue 370 VOLUME: 100 mL One or more dose reduction techniques were used (e.g., Automated exposure control, adjustment of the mA and/or kV according to patient size, use of iterative reconstruction technique). RADIATION DOSE SUMMARY: CTDlvol: 42 mGy DLP: 753 mGycm COMPARISON: December 28, 2024 FINDINGS: Aortic Arch: Normal size and branching pattern. No significant atherosclerotic plaque. Brachiocephalic and Subclavians: Unremarkable RIGHT Carotid: Right CCA: Unremarkable. Right ICA: Unremarkable. Maximum stenosis (NASCET): 0 % Right ECA: Unremarkable. LEFT Carotid: Left CCA: Unremarkable. Left ICA: Unremarkable. Maximum stenosis (NASCET): 0 % Left ECA: Unremarkable. Vertebrals: Codominant. Arise from the subclavians. Both vertebrals form the basilar. RIGHT Vertebral: Unremarkable. LEFT Vertebral: Unremarkable. Anatomy: [place] of [place] anatomy is normal. Right posterior communicating is patent. Aneurysm or avm: No intracranial aneurysms or large vascular malformations are identified. Anterior cerebral arteries: Unremarkable. Middle cerebral arteries: Unremarkable. Basilar artery: Unremarkable. Posterior cerebral arteries: Unremarkable. Other major branches of the posterior circulation: Unremarkable. Major venous structures: Unremarkable. Other findings: Neck: No lymphadenopathy. Left thyroid nodule 1.7 x 1.4 cm. Lungs: Lung apices are clear. Bones: Bones are unremarkable. CT/STROKE CTA Head AND Neck W/Con IMPRESSION: 1. No large vessel occlusion. 2. No aneurysm or stenosis. Reading Location: [id number]
--- NOTE | 2025-02-22 10:32 | ED.VIS.STROK ---
HPI History of Present Illness Chief Complaint: Stroke Alert Informant: patient and EMS Narrative Narrative: 54-year-old female was at work when all of a sudden she started to feel tingling and weak throughout her left side. She states it felt like this when she had a prior stroke. She has had prior strokes that affected both the right and the left side so she has mild residual diffuse weakness from that, but worse throughout the left acutely today for the past 2 hours. EMS states she was stuttering and having some issues speaking as well with this that are new. Patient denies headache or chest pain or shortness of breath. She is on aspirin and clopidogrel no anticoagulants. No recent injury to her head or other illness. [facility] Medical History Stimulant use disorder PTSD (post-traumatic stress disorder) Bipolar disorder, unspecified Separation of left acromioclavicular joint Left shoulder pain CKD (chronic kidney disease) History of heart attack History of CVA (cerebrovascular accident) (2002) Type 2 diabetes mellitus Essential hypertension COPD (chronic obstructive pulmonary disease) Asthma Epilepsy Home Medications ?Medication ?Instructions ?Recorded ?Last Taken ?Type simvastatin 20 mg tablet 20 mg PO QHS CHOLESTEROL 01/26/17 12/27/24 History albuterol sulfate 90 mcg/actuation 2 puff inhalation Q6H PRN 10/03/21 12/23/24 History aerosol inhaler (Ventolin HFA) Shortness Of Breath ferrous sulfate 325 mg (65 mg 325 mg PO DAILY SUPPLEMENT 10/03/21 12/28/24 History iron) tablet (FeroSul) sumatriptan succinate 25 mg tablet 25 mg PO Q2H PRN migraine headache 10/19/23 12/26/24 Rx (Imitrex) #10 tabs levetiracetam 1,000 mg tablet 1,000 mg PO BID SEIZURE #60 tabs 04/12/24 12/28/24 Rx (Keppra) aspirin 81 mg tablet,delayed 81 mg PO DAILY HEART HEALTH 10/06/24 12/28/24 History release cholecalciferol (vitamin D3) 125 125 mcg PO DAILY SUPPLEMENT 10/06/24 12/28/24 History mcg (5,000 unit) tablet (Vitamin D3) fluticasone propionate 115 2 puff inhalation BID SOB 10/06/24 12/27/24 History mcg-salmeterol 21 mcg/actuation HFA inhaler (Advair HFA) gabapentin 400 mg capsule 400 mg PO TID PAIN 10/06/24 12/28/24 History ibuprofen 800 mg tablet 800 mg PO TID HEADACHE 10/06/24 12/23/24 History montelukast 10 mg tablet 10 mg PO DAILY ASTHMA 10/06/24 12/28/24 History pantoprazole 20 mg tablet,delayed 20 mg PO DAILY GERD 10/06/24 12/28/24 History release propranolol 20 mg tablet 20 mg PO BID HTN 10/06/24 12/28/24 History sertraline 100 mg tablet 100 mg PO DAILY MOOD 10/06/24 12/28/24 History sertraline 25 mg tablet 25 mg PO DAILY MOOD 10/06/24 12/28/24 History furosemide 20 mg tablet 20 mg PO DAILY PRN edema 12/25/24 12/27/24 History fluticasone propionate 50 1 spray intranasal Q12H PRN 12/28/24 12/28/24 History mcg/actuation nasal allergy symptoms spray,suspension ondansetron 4 mg disintegrating 4 mg PO Q8H PRN Nausea 12/28/24 12/26/24 History tablet ergocalciferol (vitamin D2) 1,250 1,250 mcg PO DAILY 02/22/25 Unknown History mcg (50,000 unit) capsule (Vitamin D2) Allergy/AdvReac Type Severity Reaction Status Date / Time Latex, Natural Rubber Allergy Rash Verified 02/22/25 10:53 Penicillins (PCN) AdvReac Nausea/Vom/ Verified 02/22/25 10:53 Diarrhea Family History no significant family his Surgical History History of section History of left heart catheterization (12/11/16) History of cholecystectomy Social History household members: none current occupational status: employed Smoking Status: Current every day smoker tobacco type: smokeless tobacco Smokeless tobacco user: chewing tobacco ROS ROS ED Constitutional Constitutional ED: Denies chills or fever(s) Eyes Eyes: Denies change in vision or diplopia ENT ENT ED: Denies rhinorrhea or sore throat Cardiovascular Cardiovascular: Denies chest pain or palpitations Respiratory/Chest Respiratory/Chest: Denies cough or dyspnea Gastrointestinal Gastrointestinal: Denies abdominal pain, diarrhea, nausea or vomiting Genitourinary Genitourinary ED: Denies dysuria or hematuria Musculoskeletal Musculoskeletal: Denies back pain or neck pain Integumentary Denies abscess or rash Neurologic Neurologic: Reports paresthesias and weakness; Denies headache(s) Psychiatric Psychiatric: Denies suicidal thoughts EXAM Physical Exam Const Vital Signs: 02/22/25 10:34 02/22/25 10:38 02/22/25 10:47 Temperature 98 F Temperature Source Oral Pulse Rate 104 H Respiratory Rate 22 H Blood Pressure 132/89 H Blood Pressure Mean 103 Pulse Ox 96 Oxygen Delivery Method Room Air Room Air 02/22/25 10:48 02/22/25 11:02 02/22/25 11:29 Temperature Temperature Source Pulse Rate 81 91 78 Respiratory Rate 19 H 19 H 14 Blood Pressure 126/113 H 132/99 H 124/91 H Blood Pressure Mean 117 110 102 Pulse Ox 98 96 96 Oxygen Delivery Method Room Air Room Air Room Air 02/22/25 11:30 02/22/25 12:00 Temperature Temperature Source Pulse Rate 72 Respiratory Rate 14 Blood Pressure 142/87 H Blood Pressure Mean 105 Pulse Ox 100 98 Oxygen Delivery Method Room Air Room Air Positive well nourished, well developed and obese General Appearance ED: well developed and NAD Nutritional Appearance: obese HEENT Reports moist mucous membranes HEENT Narrative: Edentulous. No facial droop. normocephalic and atraumatic Eyes PERRL and EOMs intact bilaterally Neck full ROM and supple Resp normal respiratory effort and clear to auscultation bilaterally Cardio regular rate, regular rhythm and no murmurs GI non-tender and non-distended Auscultation: normoactive bowel sounds Palpation: soft Back/Spine no CVA tenderness General Back: other FROM Extremity normal to inspection General Extremety ED: Negative for edema, pulses abnormal or tenderness General Extremity: Negative for edema or pulses abnormal Neuro oriented x3 Neuro Narrative: Stuttering speech no aphasia or dysarthria. Sensorium / Orientation: awake and alert Psych Mood & Affect: anxious Skin no rashes or lesions noted and no wounds MDM MDM MDM Narrative Medical decision making narrative: Stroke alert was called I saw patient in the ambulance bay, she had some mild weakness in the left side and some stuttering speech according to EMS, patient is stating this feels similar to prior strokes. NIH of only 3. In addition, her subjective and objective decree sensation was changing sides throughout the ED stay with multiple evaluations by myself, neurology, and nursing. Given that in conjunction with her low NIH and nondisabling symptoms, neurology and I both agree patient is not a thrombolytic candidate as the risks outweigh the potential benefits at this time. Her workup is otherwise unremarkable, EKG shows sinus rhythm, CTA is negative for LVO plan is admission and further workup. Blood pressure stable. Differential also includes psychosomatic etiologies in addition to metabolic etiologies although her chemistries are normal at this time with the exception of mild hypercalcemia. Lab Data Attestation: I reviewed the patient's lab results. Labs: Laboratory Results - last 24 hr 02/22/25 10:45 WBC 9.4 RBC 4.79 Hgb 13.1 Hct 41.4 MCV 86.4 MCH 27.3 MCHC 31.6 L RDW Std Deviation 39.9 RDW Coeff of Pb 12.7 Plt Count 277 MPV 9.5 Immature Gran % (Auto) 0.600 Neut % (Auto) 68.9 Lymph % (Auto) 21.7 [place] % (Auto) 6.5 Eos % (Auto) 2.0 Baso % (Auto) 0.3 Absolute Neuts (auto) 6.4 Absolute Lymphs (auto) 2.03 Nucleated RBC % 0 PT 12.9 INR 1.0 APTT 24.3 Sodium 138 Potassium 4.1 Chloride 102 Carbon Dioxide 26.8 Anion Gap 9 BUN 13 Creatinine 0.71 Estim Creat Clear Calc 115.92 Est GFR (MDRD) Non-Af 101 BUN/Creatinine Ratio 18.4 Glucose 115 H Calcium 11.8 H Troponin T High Sens 7 D Radiography Diagnostic Testing: Clinical Impression(s) from Imaging Studies Brain CT 02/22/25 10:32 IMPRESSION: No acute intracranial abnormality. Stroke Alert: As above The critical findings in the findings and impression above were relayed directly by me by telephone to Nathaniel Olmstead on 02/22/2025 at 10:48 am EST with readback verification. Reading Location: [id number] Head/Neck CTA 02/22/25 10:32 IMPRESSION: 1. No large vessel occlusion. 2. No aneurysm or stenosis. Reading Location: [id number] Rhythm Strip Rhythm Strip: Sinus Rhythm Rate: 71 Ectopy: None EKG Initial EKG: Attestation: I personally reviewed and interpreted this EKG as follows: Interpretation: Sinus Rhythm and No Acute Injury Pattern Comments: Leftward axis, normal intervals Management Discussion w/another healthcare provider: Hospitalist, Floor Attendant (stroke neuro) and Radiologist Discharge Plan Dx/Rx/DC Orders Clinical Impression: Paresthesias with subjective weakness, Hypercalcemia, History of stroke Disposition Disposition: Acute Care Hospital [facility] [place] NIHSS NIHSS 1a. Level of Consciousness: 0 - Alert; keenly responsive 1b. LOC Questions: 0 - Answers BOTH questions correctly 1c. LOC Commands: 0 - Performs BOTH tasks correctly 2. Best Gaze: 0 - Normal 3. Visual: 0 - No visual loss 4. Facial Palsy: 0 - Normal symmetrical movements 5a. Left Arm: 0 - No drift; arm holds 90 (or 45) degrees for full 10 seconds 5b. Right Arm: 0 - No drift; arm holds 90 (or 45) degrees for full 10 seconds 6a. Left Le - Drift; leg falls by the end of 5-seconds, but does not hit bed 6b. Right Le - Drift; leg falls by the end of 5-seconds, but does not hit bed 7. Limb Ataxia: 0 - Absent 8. Sensory: 1 - Ikft-an-sisgxcnd sensory loss; 9. Best Language: 0 - No aphasia; normal 10. Dysarthria: 0 - Normal 11. Extinction and Inattention: 0 - No abnormality Total: 3 Stroke Questions Stroke Team Activated: Yes (Prehospital) IV Thrombolytic Administered: No (Nondisabling deficits)
--- NOTE | 2025-02-22 10:49 | ED.RN ---
Pt's symptoms waxing and waning. Pt able to converse but then has difficulty finding words during NIHSS assessment. Pt stuttering as well. Pt complains of left sided weakness but has loss of sensation on right leg.
[2025-02-22 10:55] LABS: Hematocrit 41.4 % (37-47); Hemoglobin 13.1 g/dL (12.0-15.0); Immature Granulocytes Count 0.060 X10^3/uL (0.0-0.0); Mean Corp Hgb Conc 31.6 g/dL (32-36); Mean Corpuscular Volume 86.4 fL (81-99); Mean Platelet Vol. 9.5 fl (6.2-12.0); NRBC Flagged by Analyzer 0 % (0-5); Platelet Count 277 K/mm3 (150-450); RBC Distribution Width CV 12.7 % (11.6-14.6); RBC Distribution Width SD 39.9 fl (35.1-43.9); Red Blood Count 4.79 M/mm3 (4.2-5.4); White Blood Count 9.4 K/mm3 (4.4-11.0)
[2025-02-22 11:05] LABS: Prothrombin Time (Protime)PT. 12.9 SECONDS (11.7-14.9)
[2025-02-22 11:06] LABS: Partial Thromboplast Time 24.3 Seconds (24.1-36.2)
--- NOTE | 2025-02-22 11:20 | CM.ED ---
Social work Reason for referral: stroke alert SW responded to stroke alert called in ED after imaging was completed. Patient was observed sitting in bed and resting comfortably. No family was present for support and patient declined SW offer to call anyone. Patient stated needing a ride home, but patient agreed to let doctors treat patient and get help later with a ride. Patient denied further needs at this time. Maddi Fenton, CHALKER SOLES, GRADER MARKER
[2025-02-22 11:28] LABS: Anion Gap 9 (5-15); BUN 13 mg/dL (4-19); BUN/Creat Ratio 18.4 RATIO (10-20); Calcium,Total 11.8 mg/dL (7.6-11.0); Carbon Dioxide 26.8 mmol/L (21.0-32.0); Chloride 102 mmol/L (98-108); Estimated Creatinine Clearance 115.92 ml/min (50-250); Glucose 115 mg/dL (70-99); Potassium 4.1 mmol/L (3.3-5.1); Troponin T High Sensitivity 7 ng/L (<=14)
--- NOTE | 2025-02-22 12:15 | PCM.HP.STD ---
HPI - General General Date of Admission: 02/22/25 HPI Narrative NELIA KNOWLES, is a 54 F who presents to the hospital with concerns of a stroke. She had a previous stroke and a TIA that affected both her right and left side. She says that she has residual weakness in the right side but today she was feeling increased weakness on her left arm and leg with increased numbness and tingling. She struggles to lift both her arms but there is not drift when I lift them for her unclear if she is weak or if there is a nonorganic cause. CT of the brain and CTA of the head and neck are unremarkable. She has a little bit of stuttering speech but she is not aphasic or dysarthric [facility] Medical History Stimulant use disorder PTSD (post-traumatic stress disorder) Bipolar disorder, unspecified Separation of left acromioclavicular joint Left shoulder pain CKD (chronic kidney disease) History of heart attack History of CVA (cerebrovascular accident) (2002) Type 2 diabetes mellitus Essential hypertension COPD (chronic obstructive pulmonary disease) Asthma Epilepsy Home Medications ?Medication ?Instructions ?Recorded ?Last Taken ?Type simvastatin 20 mg tablet 20 mg PO QHS CHOLESTEROL 01/26/17 12/27/24 History albuterol sulfate 90 mcg/actuation 2 puff inhalation Q6H PRN 10/03/21 12/23/24 History aerosol inhaler (Ventolin HFA) Shortness Of Breath ferrous sulfate 325 mg (65 mg 325 mg PO DAILY SUPPLEMENT 10/03/21 12/28/24 History iron) tablet (FeroSul) sumatriptan succinate 25 mg tablet 25 mg PO Q2H PRN migraine headache 10/19/23 12/26/24 Rx (Imitrex) #10 tabs levetiracetam 1,000 mg tablet 1,000 mg PO BID SEIZURE #60 tabs 04/12/24 12/28/24 Rx (Keppra) aspirin 81 mg tablet,delayed 81 mg PO DAILY HEART HEALTH 10/06/24 12/28/24 History release cholecalciferol (vitamin D3) 125 125 mcg PO DAILY SUPPLEMENT 10/06/24 12/28/24 History mcg (5,000 unit) tablet (Vitamin D3) fluticasone propionate 115 2 puff inhalation BID SOB 10/06/24 12/27/24 History mcg-salmeterol 21 mcg/actuation HFA inhaler (Advair HFA) gabapentin 400 mg capsule 400 mg PO TID PAIN 10/06/24 12/28/24 History ibuprofen 800 mg tablet 800 mg PO TID HEADACHE 10/06/24 12/23/24 History montelukast 10 mg tablet 10 mg PO DAILY ASTHMA 10/06/24 12/28/24 History pantoprazole 20 mg tablet,delayed 20 mg PO DAILY GERD 10/06/24 12/28/24 History release propranolol 20 mg tablet 20 mg PO BID HTN 10/06/24 12/28/24 History sertraline 100 mg tablet 100 mg PO DAILY MOOD 10/06/24 12/28/24 History sertraline 25 mg tablet 25 mg PO DAILY MOOD 10/06/24 12/28/24 History furosemide 20 mg tablet 20 mg PO DAILY PRN edema 12/25/24 12/27/24 History fluticasone propionate 50 1 spray intranasal Q12H PRN 12/28/24 12/28/24 History mcg/actuation nasal allergy symptoms spray,suspension ondansetron 4 mg disintegrating 4 mg PO Q8H PRN Nausea 12/28/24 12/26/24 History tablet ergocalciferol (vitamin D2) 1,250 1,250 mcg PO DAILY 02/22/25 Unknown History mcg (50,000 unit) capsule (Vitamin D2) Allergy/AdvReac Type Severity Reaction Status Date / Time Latex, Natural Rubber Allergy Rash Verified 02/22/25 10:53 Penicillins (PCN) AdvReac Nausea/Vom/ Verified 02/22/25 10:53 Diarrhea Family History (Updated 02/22/25 @ 12:[address] Lewis Salas MD) Other Diabetes Heart disease Surgical History History of section History of left heart catheterization (12/11/16) History of cholecystectomy Social History household members: none current occupational status: employed Smoking Status: Current every day smoker tobacco type: smokeless tobacco Smokeless tobacco user: chewing tobacco ROS Constitutional Constitutional: Denies chills, fatigue, fever(s) or malaise Eyes Eyes: Denies blurry vision ENT HEENT: Denies headache(s) or nasal discharge Cardiovascular Cardiovascular: Denies chest pain, dyspnea on exertion or syncope Respiratory/Chest Respiratory/Chest: Denies cough, shortness of breath at rest or shortness of breath with exertion Gastrointestinal Gastrointestinal: Denies constipation, diarrhea, nausea or vomiting Genitourinary Genitourinary: Denies dysuria Neurologic Neurologic: Denies focal weakness, numbness or tremor(s) Psychiatric Psychiatric: Denies anxiety or depression Vital Signs Vital Signs Vital Signs: 02/22/25 10:34 02/22/25 10:38 02/22/25 10:47 Temperature 98 F Temperature Source Oral Pulse Rate 104 H Respiratory Rate 22 H Blood Pressure 132/89 H Blood Pressure Mean 103 Pulse Ox 96 Oxygen Delivery Method Room Air Room Air 02/22/25 10:48 02/22/25 11:02 02/22/25 11:29 Temperature Temperature Source Pulse Rate 81 91 78 Respiratory Rate 19 H 19 H 14 Blood Pressure 126/113 H 132/99 H 124/91 H Blood Pressure Mean 117 110 102 Pulse Ox 98 96 96 Oxygen Delivery Method Room Air Room Air Room Air 02/22/25 11:30 02/22/25 12:00 Temperature Temperature Source Pulse Rate 72 Respiratory Rate 14 Blood Pressure 142/87 H Blood Pressure Mean 105 Pulse Ox 100 98 Oxygen Delivery Method Room Air Room Air Weight Weight: 271 lb 2.697 oz Body Mass Index (BMI) 46.5 Physical Exam Narrative General: Alert, Oriented x3, Cooperative, No apparent distress HEENT: Atraumatic, PERRLA, EOMI, Normocephalic Oral: Moist Mucosa Neck: Supple, No JVD Lungs: Diminished, Normal air movement, No rhonchi, No wheeze, No rales Cardiovascular: Regular rate, Regular Rhythm, Normal S1, Normal S2, No murmurs Abdomen: Soft, Non Tender, Non-Distended, No Hepato-splenomegaly Extremities: No edema, Capillary Refill Less than 3 Seconds Skin: No rashes, No breakdown Musculoskeletal: No Tenderness to Palpation of Joints or Extremities Neurological: No focal neurological deficits, NIH of 1 for paresthesias but unclear chronicity and laterality. Struggle to lift her arms up but no drift when she got them up Psych/Mental Status: Flat Results Lab / Micro Data 02/22/25 10:45 02/22/25 10:45 Labs: Laboratory Results - last 24 hr 02/22/25 10:45: WBC 9.4, RBC 4.79, Hgb 13.1, Hct 41.4, MCV 86.4, MCH 27.3, MCHC 31.6 L, RDW Std Deviation 39.9, RDW Coeff of Pb 12.7, Plt Count 277, MPV 9.5, Immature Gran % (Auto) 0.600, Neut % (Auto) 68.9, Lymph % (Auto) 21.7, [place] % (Auto) 6.5, Eos % (Auto) 2.0, Baso % (Auto) 0.3, Absolute Neuts (auto) 6.4, Absolute Lymphs (auto) 2.03, Nucleated RBC % 0, PT 12.9, INR 1.0, APTT 24.3, Sodium 138, Potassium 4.1, Chloride 102, Carbon Dioxide 26.8, Anion Gap 9, BUN 13, Creatinine 0.71, Estim Creat Clear Calc 115.92, Est GFR (MDRD) Non-Af 101, BUN/Creatinine Ratio 18.4, Glucose 115 H, Calcium 11.8 H, Troponin T High Sens 7 D Rhythm Strip Rhythm Strip: Sinus Rhythm Rate: 71 Ectopy: None Imaging Radiology Impression Brain CT 02/22/25 10:32 IMPRESSION: No acute intracranial abnormality. Stroke Alert: As above The critical findings in the findings and impression above were relayed directly by me by telephone to Nathaniel Olmstead on 02/22/2025 at 10:48 am EST with readback verification. Reading Location: [id number] Head/Neck CTA 02/22/25 10:32 IMPRESSION: 1. No large vessel occlusion. 2. No aneurysm or stenosis. Reading Location: [id number] Assessment & Plan Assessment/Plan (1) TIA (transient ischemic attack): PLAN: Plan 1. CVA versus TIA and a history of previous CVA ? Some of her exam and history seems to have a nonorganic correlation ? Will obtain an MRI without contrast ? Will obtain echocardiogram ? Will consult neurology ? Will place on high-dose statin ? Will hold blood pressure medication for permissive hypertension ? PT/OT ? Continue with aspirin 2. Essential HTN/HLD/history of CVA ? Will hold her home blood pressure medications well for permissive hypertension ? Continue with high-dose statin ? Will monitor make adjustments as necessary 3. Seizure disorder ? Stable ? Continue with Keppra 4. Anxiety/depression/PTSD ? Continue with her home medications ? Stable 5. Iron deficiency anemia ? Stable ? Continue with her iron supplementation DVT: SCDs 75 minutes was spent on direct patient care, including documentation as well as chart review and collaboration with colleagues Charges/Coding Visit Charges Inpatient E&M: 63873 Disch Hosp >30min
--- NOTE | 2025-02-22 12:36 | MRI_ITS ---
PROCEDURE: MRI BRAIN WITHOUT CONTRAST 02/22/2025 REASON FOR EXAM: TIA/CVA TECHNIQUE: Procedure Code: MRIBR Modality: MR Procedure: BRAIN WITHOUT CONTRAST Multiplanar and multisequential MRI of the brain was performed without contrast. COMPARISON: CT head/angiography same day 02/22/2025. FINDINGS: No regions of abnormal restricted diffusion to indicate recent infarct. No evidence of acute intracranial hemorrhage, extra-axial collection, mass-effect, or other acute abnormality. Ventricular and sulcal size and configuration appear within normal limits. No significant parenchymal signal alteration. Minimal scattered tiny foci of leukoaraiosis in the cerebral white matter. Preserved major intracranial vascular flow voids. Grossly unremarkable orbits. Well-aerated paranasal sinuses and bilateral mastoid air cells. MRI/Brain without Contrast IMPRESSION: No acute intracranial abnormality; No acute infarct. Reading Location: [id number]
--- NOTE | 2025-02-22 13:28 | ECHOD_ITS ---
Reason For Study Reason For Study: TIA/CVA Procedure This was a 2D Doppler, Color Flow transthoracic echocardiogram. Exam performed portable in patient room. Left Ventricle Normal LV size. The estimated ejection fraction is 60 %. No evidence for diastolic dysfunction. No regional wall motion abnormalities noted. Right Ventricle Normal RV size. Normal systolic function. Atria The left and right atria are normal. Bubble contrast study is negative for PFO/ASD. Mitral Valve There is no mitral valve stenosis. Mild (1+) mitral valve insufficiency. Tricuspid Valve There is no tricuspid stenosis. Trivial tricuspid valve insufficiency. Pulmonary artery systolic pressure is 25 mmHg. Aortic Valve Trisinus/trileaflet aortic valve. There is no aortic stenosis. No aortic valve insufficiency. Pulmonic Valve There is no pulmonic valvular stenosis. No pulmonic valve insufficiency. Great Vessels Mildly dilated ascending aorta. Pericardium/Pleural No pericardial effusion. Medication Performed a rapid injection of agitated mix of 9 cc saline and 1cc air to assess for atrial septal defect. MMode/2D Measurements & Calculations LVIDd: 5.2 cm IVSd: 0.66 cm LVOT diam: 2.2 cm LVIDs: 3.5 cm LVPWd: 0.69 cm RVDd: 3.8 cm FS: 32.3 % LVOT area: 3.6 cm2 asc Aorta Diam: 4.2 cm LAV(MOD-bp): 49.7 ml LVAd ap4: 32.8 cm2 LAV(MOD-bp) Indexed: 22.5 ml/m2 LVLd ap4: 8.2 cm LAV(MOD-sp2): 46.6 ml EDV(MOD-sp4): 110.6 ml LAV(MOD-sp4): 47.5 ml EDV(sp4-el): 111.4 ml LVAs ap4: 16.3 cm2 LVLs ap4: 6.6 cm ESV(MOD-sp4): 34.4 ml ESV(sp4-el): 34.3 ml EF(MOD-sp4): 68.9 % EF(sp4-el): 69.2 % LVAd ap2: 33.9 cm2 SV(MOD-sp4): 76.2 ml LVLd ap2: 8.1 cm EDV(MOD-bp): 116.8 ml SI(MOD-sp4): 34.5 ml/m2 EDV(MOD-sp2): 120.2 ml ESV(MOD-bp): 38.6 ml EDV(sp2-el): 120.6 ml EF(MOD-bp): 67.0 % LVAs ap2: 18.2 cm2 LVLs ap2: 6.9 cm ESV(MOD-sp2): 40.8 ml ESV(sp2-el): 40.9 ml EF(MOD-sp2): 66.0 % SV(MOD-sp2): 79.3 ml SV(sp4-el): 77.1 ml LA A4 area: 18.9 cm2 SI(MOD-sp2): 35.9 ml/m2 LA dimension(2D): 3.8 cm RA A4 area: 12.9 cm2 TAPSE: 2.5 cm Time Measurements MV dec time: 0.25 sec Doppler Measurements & Calculations MV E max josé: 91.2 cm/sec Lat Peak E' José: 16.8 cm/sec Med Peak E' José: 9.4 cm/sec MV A max josé: 81.9 cm/sec E/E' lat: 5.4 E/E' med: 9.7 MV E/A: 1.1 PA V2 max: 92.4 cm/sec MV dec slope: 359.8 cm/sec2 ECHO/Echo Complete Interpretation Summary The estimated ejection fraction is 60 %. No evidence for diastolic dysfunction. Mild (1+) mitral valve insufficiency. Mildly dilated ascending aorta. Ordering Physician: Lewis Salas Referring Physician: Stephany Livingston Performed By: Delilah Heck RDCS
[2025-02-22 13:30] LABS: Troponin T High Sens 2 HR < 6 ng/L (<=14)
--- NOTE | 2025-02-22 14:37 | CASEMGMT ---
Social Work SW spoke with the patient. Friends assist with transporting and the patient also uses [employer]. ALISSA Obando
[2025-02-22 15:26] LABS: Troponin T High Sens 4 HR 7 ng/L (<=14)
[2025-02-22] MEDS: Albuterol 2.5 MG/3 ML VIAL.NEB. INHALATION (19:38)
[2025-02-22] MEDS: Budesonide Respules 0.5 MG/2 ML AMPUL.NEB. INHALATION (19:38)
[2025-02-22] MEDS: Rizatriptan Benzoate 5 MG Tablet PO (21:10)
[2025-02-23 03:00] VITALS: BP 119/76; PULSE 68; PULSE 71; RESP 18; TEMP 36.4; O2SAT 95
[2025-02-23 05:12] LABS: Hematocrit 37.9 % (37-47); Hemoglobin 11.7 g/dL (12.0-15.0); Immature Granulocytes Count 0.050 X10^3/uL (0.0-0.0); Mean Corp Hgb Conc 30.9 g/dL (32-36); Mean Corpuscular Volume 87.9 fL (81-99); Mean Platelet Vol. 9.7 fl (6.2-12.0); NRBC Flagged by Analyzer 0 % (0-5); Platelet Count 273 K/mm3 (150-450); RBC Distribution Width CV 13.0 % (11.6-14.6); RBC Distribution Width SD 41.7 fl (35.1-43.9); Red Blood Count 4.31 M/mm3 (4.2-5.4); White Blood Count 7.5 K/mm3 (4.4-11.0)
[2025-02-23 05:53] LABS: Anion Gap 8 (5-15); BUN 18 mg/dL (4-19); BUN/Creat Ratio 23.9 RATIO (10-20); Calcium,Total 11.5 mg/dL (7.6-11.0); Carbon Dioxide 26.6 mmol/L (21.0-32.0); Chloride 105 mmol/L (98-108); Cholesterol 172 mg/dL (<=200); Estimated Creatinine Clearance 107.29 ml/min (50-250); Glucose 125 mg/dL (70-99); Low Density Lipoprotein Calc. 105 mg/dL; Potassium 4.4 mmol/L (3.3-5.1); Triglycerides 165 mg/dL; Very Low Density Lipoprotein 33 mg/dL (5-40); cholesterol:hdl ratio screen 4.48
[2025-02-23] MEDS: Albuterol 2.5 MG/3 ML VIAL.NEB. INHALATION (06:44)
[2025-02-23] MEDS: Budesonide Respules 0.5 MG/2 ML AMPUL.NEB. INHALATION (06:44)
[2025-02-23 06:45] VITALS: PULSE 69; RESP 16; O2SAT 96
--- NOTE | 2025-02-23 08:59 | CASEMGMT ---
Social Work PHQ-9 not completed as pt did not have a stroke. WINSOME Posada
[2025-02-23 09:17] VITALS: BP 133/82; PULSE 71; RESP 18; TEMP 36.6; O2SAT 95
[2025-02-23] MEDS: Aspirin E.C. 81 MG Tablet PO (09:30)
[2025-02-23 10:34] VITALS: BMI 45.8
[2025-02-23 10:35] VITALS: O2SAT 97; BMI 45.8
[2025-02-23] MEDS: Rizatriptan Benzoate 5 MG Tablet PO ×2 (10:58→14:32)
--- NOTE | 2025-02-23 11:30 | PN.NEURO_ITS ---
Objective Data Objective Data Vital Signs: Vital Signs Temp Pulse Resp BP Pulse Ox O2 Del Method 97.8 F 71 18 133/82 H 95 Room Air 02/23/25 09:17 02/23/25 09:17 02/23/25 09:17 02/23/25 09:17 02/23/25 09:17 02/23/25 09:17 Oxygen Delivery Method Room Air Weight: 121.1 kg Body Mass Index (BMI) 45.8 Intake & Output: Intake and Output for Last 24 Hours 02/21/25 02/22/25 02/23/25 23:59 23:59 23:59 Intake Total 680 / 680 100 / 100 Balance 680 / 680 100 / 100 Lab / Micro Data 02/23/25 04:25 02/23/25 04:25 Labs: Laboratory Results - last 24 hr 02/22/25 12:39: Troponin T Hi Sens 2 Hr < 6 02/22/25 14:21: Troponin T Hi Sens 4Hr 7 02/23/25 04:25: WBC 7.5, RBC 4.31, Hgb 11.7 L, Hct 37.9, MCV 87.9, MCH 27.1, M CHC 30.9 L, RDW Std Deviation 41.7, RDW Coeff of Pb 13.0, Plt Count 273, MPV 9.7, Immature Gran % (Auto) 0.700, Neut % (Auto) 59.7, Lymph % (Auto) 27.8, [place] % (Auto) 8.2, Eos % (Auto) 3.2, Baso % (Auto) 0.4, Absolute Neuts (auto) 4.5, Absolute Lymphs (auto) 2.09, Nucleated RBC % 0, Sodium 139, Potassium 4.4, Chloride 105, Carbon Dioxide 26.6, Anion Gap 8, BUN 18, Creatinine 0.76, Estim Creat Clear Calc 107.29, Est GFR (MDRD) Non-Af 93, BUN/Creatinine Ratio 23.9 H, Glucose 125 H, Calcium 11.5 H, Triglycerides 165, Cholesterol 172, LDL Cholesterol, Calc 105, VLDL Cholesterol 33, HDL Cholesterol 38 L, Cholesterol/HDL Ratio 4.48 Radiography Diagnostic Testing: Radiology Impression Brain MRI 02/22/25 12:36 IMPRESSION: No acute intracranial abnormality; No acute infarct. Reading Location: [facility] Echocardiogram 02/22/25 13:28 Interpretation Summary The estimated ejection fraction is 60 %. No evidence for diastolic dysfunction. Mild (1+) mitral valve insufficiency. Mildly dilated ascending aorta. Ordering Physician: Lewis Salas Referring Physician: Stephany Livingston Performed By: Delilah Heck RDCS Rhythm Strip Rhythm Strip: Sinus Rhythm Rate: 71 Ectopy: None Physical Exam Neuro Neuro Narrative: Neurological examination: General: The patient appears nutritionally appropriate, well-groomed, and appears comfortable in no acute distress. Mental Status: The patient?s mental status was normal including orientation. Language was intact. Speech had an unusual accent/dysarthria. Cranial nerves: Visual hallman full, and extra-ocular motion was intact. Face motion symmetric. There was no dysarthria. Motor: Normal strength and tone in all four extremities. No pronator drift. Sensation: Intact light touch bilaterally, no extinction. Coordination: Bilateral finger to nose was normal. There was no dysmetria. Gait: deferred Subject: Neurology Subjective NELIA KNOWLES is a 54 year old F, who we are seeing in consultation today for advice on the management of and related patient care. EEG Results Procedure Details EEG Procedure Details: NELIA KNOWLES is a 54 year old F with a past medical history of , who presents for evaluation of Electroencephalogram on DATE at TIME Assessment and Plan: Stroke Assessment/Plan NELIA KNOWLES is a 54 F with a history of who presents for evaluation of Neurological examination shows . Neuroimaging shows . [Quick text reminder: .OSUtnk/.OSUnontnk] NIHSS NIHSS Nursing Documentation NIHSS Nursing Documentation: NIHSS: Ischemic Stroke/TIA Start: 02/22/25 13:28 Text: For PCU Patients: NIH and Neuro Check every 12 Status: Active hours, PRN and with change in RN caregiver. Freq: Q12H Protocol: Activity Type Activity Date Activity User E-sign Co-sign Detail Recorded Client Recorded Date Recorded By Document 02/23/25 09:15 LENIN [id number] 02/23/25 09:25 LENIN 02/23/25 09:15 NIH Stroke Scale [NIHSS] A score of 0 is normal or asymptomatic . Total possible score is 42. Inpatient: RN or Physician to activate a stroke alert for onset of new stroke symptoms or with NIHSS increase >/= 3 points. Following change in neurological status, NIHSS will be performed per physician order or more frequently PRN. -1a. Level of Consciousness 0 - Alert; keenly responsive -1b. LOC Questions 0 - Answers BOTH questions correctly -1c. LOC Commands 0 - Performs BOTH tasks correctly -2. Best Gaze 0 - Normal -3. Visual 0 - No visual loss -4. Facial Palsy 0 - Normal symmetrical movements -5a. Left Arm 1 - Drift; arm drifts downward but doesn?t hit the bed -5b. Right Arm 0 - No drift; arm holds 90 ( or 45) degrees for full 10 seconds -6a. Left Leg 1 - Drift; leg falls by the end of 5- seconds, but does not hit bed -6b. Right Leg 0 - No drift; leg holds 30- degree position for full 5 seconds -7. Limb Ataxia 0 - Absent -8. Sensory 1 - Mild-to- moderate sensory loss; -9. Best Language 0 - No aphasia; normal -10. Dysarthria 0 - Normal -11. Extinction and Inattention 0 - No abnormality -Total 3 Query Text:A score of 0 is normal or asymptomatic. Total possible score is 42 . ED: Notify Physician for NIHSS increase by > / = 3 points. Inpatient: RN or Physician to activate a stroke alert for NIHSS increase of > / = 3 points. Coma Scale [Assess] -Eye Opening Spontaneous -Motor Obeys Commands -Verbal Oriented [Total] -Coma Scale Total 15
--- NOTE | 2025-02-23 12:40 | DCINST_ITS ---
Discharge Instructions DC O2, CPAP, BIPAP needs Home O2 Discharge instructions: No Dressing / Incision Discharge Activity: Return to Normal Activity Dressing / Incision Call your doctor if you observe: Fever of 101 or Higher, Shortness of breath, Dizziness, Fainting spells, Swelling in the ankles, Chest pain and Increased palpitations (irregular heartbeat) Follow Up Care Test Results: Test results from this visit will be discussed in further detail at your follow- up appointment, if applicable. Discharge Plan Admission Admit Date/Time: 02/22/25 12:27 Attending Provider: Lewis Salas Primary Care Provider: Stephany Livingston Consulting Providers: Clayton Taylor; Marley Prescott; Luz Maria Sanz; Veena Gonzalez; Denise Sargent; Rafa Davey; Abigail Marie; Rah Dudley; Rubio Andino; Aneesh Olvera; Thalia Valle; Yanelis Mcallister; Moody Javed; Ekaterina Lee; Heather Villar; Jo Ann Christie; Connor Shay; Mansi Dietrich; Magen Crum; Tomasa Avelar; Rashard Bowser Discharge Orders/Prescriptions Prescriptions: Continued ferrous sulfate [FeroSul] 325 mg (65 mg iron) tablet 325 mg PO DAILY albuterol sulfate [Ventolin HFA] 90 mcg/actuation HFA aerosol inhaler 2 puff inhalation Q6H PRN (Reason: Shortness Of Breath) simvastatin 20 MG tablet 20 mg PO QHS levetiracetam [Keppra] 1,000 mg tablet 1,000 mg PO BID Qty: 60 0RF gabapentin 400 mg capsule 400 mg PO TID aspirin 81 mg tablet,delayed release (DR/EC) 81 mg PO DAILY fluticasone propion-salmeterol [Advair HFA] 115-21 mcg/actuation HFA aerosol inhaler 2 puff inhalation BID cholecalciferol (vitamin D3) [Vitamin D3] 125 mcg (5,000 unit) tablet 125 mcg PO DAILY Patient Comments: mowefr ibuprofen 800 mg tablet 800 mg PO TID Patient Comments: pt states she takes as needed sertraline 100 mg tablet 100 mg PO DAILY Patient Comments: WITH 25MG pantoprazole 20 mg tablet,delayed release (DR/EC) 20 mg PO DAILY sertraline 25 mg tablet 25 mg PO DAILY Patient Comments: WITH 100MG montelukast 10 mg tablet 10 mg PO DAILY propranolol 20 mg tablet 20 mg PO BID furosemide 20 mg tablet 20 mg PO DAILY PRN (Reason: edema) fluticasone propionate 50 mcg/actuation spray,suspension 1 spray INTRANASAL Q12H PRN (Reason: allergy symptoms) ondansetron 4 mg tablet,disintegrating 4 mg PO Q8H PRN sumatriptan succinate [Imitrex] 25 mg tablet 25 mg PO Q2H PRN (Reason: migraine headache) Qty: 10 0RF Rx Instructions: do not exceed 8 doses per 24 hrs ergocalciferol (vitamin D2) [Vitamin D2] 1,250 mcg (50,000 unit) capsule 1,250 mcg PO DAILY Referrals / Follow Up: Stephany Livingston MD [Primary Care Provider, Internal Medicine] - Within 1 Week Alexandre Jerome MD [Non-Staff -Ordering Privileges, Neurology] - Within 1 Month Disposition Disposition (needs filled in before D/C Order can be placed): Home, Self Care
[2025-02-23 12:43] VITALS: BP 99/86; PULSE 85; RESP 18; TEMP 36.9; O2SAT 96
--- NOTE | 2025-02-23 13:05 | PHA.DC.MR.R ---
Pharmacy PA Med Reconciliation Pharmacy Service has performed discharge medication reconciliation for this patient. The patient's discharge medication list was reviewed for discrepancies and discrepancies were resolved. Medications at Discharge Home Medications simvastatin 20 mg tablet 20 mg PO QHS CHOLESTEROL 01/26/17 albuterol sulfate 90 mcg/actuation aerosol inhaler (Ventolin HFA) 2 puff inhalation Q6H PRN Shortness Of Breath 10/03/21 ferrous sulfate 325 mg (65 mg iron) tablet (FeroSul) 325 mg PO DAILY SUPPLEMENT 10/03/21 sumatriptan succinate 25 mg tablet (Imitrex) 25 mg PO Q2H PRN migraine headache #10 tabs 10/19/23 levetiracetam 1,000 mg tablet (Keppra) 1,000 mg PO BID SEIZURE #60 tabs 04/12/24 aspirin 81 mg tablet,delayed release 81 mg PO DAILY HEART HEALTH 10/06/24 cholecalciferol (vitamin D3) 125 mcg (5,000 unit) tablet (Vitamin D3) 125 mcg PO DAILY SUPPLEMENT 10/06/24 fluticasone propionate 115 mcg-salmeterol 21 mcg/actuation HFA inhaler (Advair HFA) 2 puff inhalation BID SOB 10/06/24 gabapentin 400 mg capsule 400 mg PO TID PAIN 10/06/24 ibuprofen 800 mg tablet 800 mg PO TID HEADACHE 10/06/24 montelukast 10 mg tablet 10 mg PO DAILY ASTHMA 10/06/24 pantoprazole 20 mg tablet,delayed release 20 mg PO DAILY GERD 10/06/24 propranolol 20 mg tablet 20 mg PO BID HTN 10/06/24 sertraline 100 mg tablet 100 mg PO DAILY MOOD 10/06/24 sertraline 25 mg tablet 25 mg PO DAILY MOOD 10/06/24 furosemide 20 mg tablet 20 mg PO DAILY PRN edema 12/25/24 fluticasone propionate 50 mcg/actuation nasal spray,suspension 1 spray intranasal Q12H PRN allergy symptoms 12/28/24 ondansetron 4 mg disintegrating tablet 4 mg PO Q8H PRN Nausea 12/28/24 ergocalciferol (vitamin D2) 1,250 mcg (50,000 unit) capsule (Vitamin D2) 1,250 mcg PO DAILY 02/22/25
--- NOTE | 2025-02-23 13:38 | DS.PCM_ITS ---
Providers Date of Admission: 02/22/25 Primary Care Physician: Dr. Stephany Livingston MD Consultations 02/22/25 13:28 Consult: Tele-Neurology Routine Consulting Provider: [facility] Reason for Consult: Acute Ischemic Stroke/TIA EMERGENT Consult: No MD Notified: Yes Date Notified: 02/22/25 Time Notified: 12:28 Method of Notification: Answering Service Nursing Unit Staff Notify [facility] of Tele-Neurology Consult: Yes Reason For Visit: TIA Diagnosis Discharge Diagnosis (1) TIA (transient ischemic attack): Status: Acute Code(s): G45.9 - Transient cerebral ischemic attack, unspecified Medications at Discharge Home Medications simvastatin 20 mg tablet 20 mg PO QHS CHOLESTEROL 01/26/17 albuterol sulfate 90 mcg/actuation aerosol inhaler (Ventolin HFA) 2 puff inhalation Q6H PRN Shortness Of Breath 10/03/21 ferrous sulfate 325 mg (65 mg iron) tablet (FeroSul) 325 mg PO DAILY SUPPLEMENT 10/03/21 sumatriptan succinate 25 mg tablet (Imitrex) 25 mg PO Q2H PRN migraine headache #10 tabs 10/19/23 levetiracetam 1,000 mg tablet (Keppra) 1,000 mg PO BID SEIZURE #60 tabs 04/12/24 aspirin 81 mg tablet,delayed release 81 mg PO DAILY HEART HEALTH 10/06/24 cholecalciferol (vitamin D3) 125 mcg (5,000 unit) tablet (Vitamin D3) 125 mcg PO DAILY SUPPLEMENT 10/06/24 fluticasone propionate 115 mcg-salmeterol 21 mcg/actuation HFA inhaler (Advair HFA) 2 puff inhalation BID SOB 10/06/24 gabapentin 400 mg capsule 400 mg PO TID PAIN 10/06/24 ibuprofen 800 mg tablet 800 mg PO TID HEADACHE 10/06/24 montelukast 10 mg tablet 10 mg PO DAILY ASTHMA 10/06/24 pantoprazole 20 mg tablet,delayed release 20 mg PO DAILY GERD 10/06/24 propranolol 20 mg tablet 20 mg PO BID HTN 10/06/24 sertraline 100 mg tablet 100 mg PO DAILY MOOD 10/06/24 sertraline 25 mg tablet 25 mg PO DAILY MOOD 10/06/24 furosemide 20 mg tablet 20 mg PO DAILY PRN edema 12/25/24 fluticasone propionate 50 mcg/actuation nasal spray,suspension 1 spray intranasal Q12H PRN allergy symptoms 12/28/24 ondansetron 4 mg disintegrating tablet 4 mg PO Q8H PRN Nausea 12/28/24 ergocalciferol (vitamin D2) 1,250 mcg (50,000 unit) capsule (Vitamin D2) 1,250 mcg PO DAILY 02/22/25 Hospital Course Operations None Procedures 2-D Echocardiogram Summary of Care Provided Minutes Spent on Discharge: 34 Hospital Course: Per HPI: NELIA KNOWLES, is a 54 F who presents to the hospital with concerns of a stroke. She had a previous stroke and a TIA that affected both her right and left side. She says that she has residual weakness in the right side but today she was feeling increased weakness on her left arm and leg with increased numbness and tingling. She struggles to lift both her arms but there is not drift when I lift them for her unclear if she is weak or if there is a nonorganic cause. CT of the brain and CTA of the head and neck are unremarkable. She has a little bit of stuttering speech but she is not aphasic or dysarthric Hospital Course: 1. Complex migraine?54-year-old female with a history of migraines and a previous CVA presented to the hospital with left-sided paresthesias and possible drift. Some of the symptomatology did not appear to have an organic cause however MRI was negative for ischemia and echocardiogram was unremarkable. Neurology was consulted and did not recommend any further stroke workup as they felt that this was due to a complex migraine. The patient believes that she has been having a headache recently because of nicotine withdrawal as she was noted to have her tobacco products while in the hospital. I discussed with her the possibility for discharge today and she expressed understanding of the risks and benefits of going home and would want to go home today. She will need a walker and speech therapy outpatient follow-up with her PCP as well as neurology. Will continue with all of her home blood pressure medications as well as her cholesterol medications and aspirin. 2. Essential hypertension, hyperlipidemia, history of CVA, seizure disorder, anxiety, depression, PTSD, iron deficiency anemia are all chronic medical conditions which complicate her care. Her home medications were continued where appropriate. Physical Exam Narrative General: Alert, Oriented x3, Cooperative, No apparent distress HEENT: Atraumatic, PERRLA, EOMI, Normocephalic Oral: Moist Mucosa Neck: Supple, No JVD Lungs: Diminished, Normal air movement, No rhonchi, No wheeze, No rales Cardiovascular: Regular rate, Regular Rhythm, Normal S1, Normal S2, No murmurs Abdomen: Soft, Non Tender, Non-Distended, No Hepato-splenomegaly Extremities: No edema, Capillary Refill Less than 3 Seconds Skin: No rashes, No breakdown Musculoskeletal: No Tenderness to Palpation of Joints or Extremities Neurological: No focal neurological deficits, NIH of 1 for paresthesias Psych/Mental Status: Flat Weight / BMI Weight Weight: 266 lb 15.677 oz Body Mass Index (BMI) 45.8 ABG / Lab / Microbiology Data 02/23/25 04:25 02/23/25 04:25 Laboratory: Laboratory Results - last 24 hr 02/22/25 14:21: Troponin T Hi Sens 4Hr 7 02/23/25 04:25: WBC 7.5, RBC 4.31, Hgb 11.7 L, Hct 37.9, MCV 87.9, MCH 27.1, M CHC 30.9 L, RDW Std Deviation 41.7, RDW Coeff of Pb 13.0, Plt Count 273, MPV 9.7, Immature Gran % (Auto) 0.700, Neut % (Auto) 59.7, Lymph % (Auto) 27.8, [place] % (Auto) 8.2, Eos % (Auto) 3.2, Baso % (Auto) 0.4, Absolute Neuts (auto) 4.5, Absolute Lymphs (auto) 2.09, Nucleated RBC % 0, Sodium 139, Potassium 4.4, Chloride 105, Carbon Dioxide 26.6, Anion Gap 8, BUN 18, Creatinine 0.76, Estim Creat Clear Calc 107.29, Est GFR (MDRD) Non-Af 93, BUN/Creatinine Ratio 23.9 H, Glucose 125 H, Calcium 11.5 H, Triglycerides 165, Cholesterol 172, LDL Cholesterol, Calc 105, VLDL Cholesterol 33, HDL Cholesterol 38 L, Cholesterol/HDL Ratio 4.48 Radiography Diagnostic Testing: Radiology Impression Brain MRI 02/22/25 12:36 IMPRESSION: No acute intracranial abnormality; No acute infarct. Reading Location: [id number] Echocardiogram 02/22/25 13:28 Interpretation Summary The estimated ejection fraction is 60 %. No evidence for diastolic dysfunction. Mild (1+) mitral valve insufficiency. Mildly dilated ascending aorta. Ordering Physician: Lewis Salas Referring Physician: Stephany Livingston Performed By: Delilah Heck RDCS D/C Instructions Call your doctor if you observe: Fever of 101 or Higher, Shortness of breath, Dizziness, Fainting spells, Swelling in the ankles, Chest pain and Increased palpitations (irregular heartbeat) DC O2, CPAP, BIPAP Needs Home O2 Discharge instructions: No Meaningful Use Info Meaningful Use Meaningful Use Diagnoses (Choose all that apply): None applicable Discharge Plan Admission Admit Date/Time: 02/22/25 12:27 Attending Provider: Lewis Salas Primary Care Provider: Stephany Livingston Consulting Providers: Clayton Taylor; Marley Prescott; Luz Maria Sanz; Veena Gonzalez; Denise Sargent; Rafa Davey; Abigail Marie; Rah Dudley; Rubio Andino; Aneesh Olvera; Thalia Valle; Yanelis Mcallister; Moody Javed; Ekaterina Lee; Heather Villar; Jo Ann Christie; Connor Shay; Mansi Dietrich; Magen Crum; Tomasa Avelar; Rashard Bowser Discharge Orders/Prescriptions Prescriptions: Continued ferrous sulfate [FeroSul] 325 mg (65 mg iron) tablet 325 mg PO DAILY albuterol sulfate [Ventolin HFA] 90 mcg/actuation HFA aerosol inhaler 2 puff inhalation Q6H PRN (Reason: Shortness Of Breath) simvastatin 20 MG tablet 20 mg PO QHS levetiracetam [Keppra] 1,000 mg tablet 1,000 mg PO BID Qty: 60 0RF gabapentin 400 mg capsule 400 mg PO TID aspirin 81 mg tablet,delayed release (DR/EC) 81 mg PO DAILY fluticasone propion-salmeterol [Advair HFA] 115-21 mcg/actuation HFA aerosol inhaler 2 puff inhalation BID cholecalciferol (vitamin D3) [Vitamin D3] 125 mcg (5,000 unit) tablet 125 mcg PO DAILY Patient Comments: mowefr ibuprofen 800 mg tablet 800 mg PO TID Patient Comments: pt states she takes as needed sertraline 100 mg tablet 100 mg PO DAILY Patient Comments: WITH 25MG pantoprazole 20 mg tablet,delayed release (DR/EC) 20 mg PO DAILY sertraline 25 mg tablet 25 mg PO DAILY Patient Comments: WITH 100MG montelukast 10 mg tablet 10 mg PO DAILY propranolol 20 mg tablet 20 mg PO BID furosemide 20 mg tablet 20 mg PO DAILY PRN (Reason: edema) fluticasone propionate 50 mcg/actuation spray,suspension 1 spray INTRANASAL Q12H PRN (Reason: allergy symptoms) ondansetron 4 mg tablet,disintegrating 4 mg PO Q8H PRN sumatriptan succinate [Imitrex] 25 mg tablet 25 mg PO Q2H PRN (Reason: migraine headache) Qty: 10 0RF Rx Instructions: do not exceed 8 doses per 24 hrs ergocalciferol (vitamin D2) [Vitamin D2] 1,250 mcg (50,000 unit) capsule 1,250 mcg PO DAILY Referrals / Follow Up: Stephany Livingston MD [Primary Care Provider, Internal Medicine] - 02/27/25 10:40 am Alexandre Jeroem MD [Non-Staff -Ordering Privileges, Neurology] - Within 1 Month Referral Note: LEFT MESSAGE FOR OFFICE TO CALL PATIENT TO SET UP APPOINTMENT. Disposition Disposition (needs filled in before D/C Order can be placed): Home, Self Care Charges/Coding Visit Charges Inpatient E&M: 68159 Disch Hosp >30min
--- NOTE | 2025-02-23 13:39 | CASEMGMT ---
Patient has order for discharge. PARMJIT DOWNING updated by therapy that patient will need walker and outpatient speech therapy at discharge. Hospitalist updated, scripts received. PARMJIT DOWNING in to discuss with patient. Patient would like PARMJIT DOWNING to send script to [facility] and have them call her to schedule appointment. Patient prefers [facility] for walker. Patient denied further needs or help at discharge. PARMJIT DOWNING sent referral to [facility] and provide walker from stock to patient. PARMJIT DOWNING faxed referral to [facility] and requested to call patient to schedule appointment. PARMJIT DOWNING updated discharge plan.
--- NOTE | 2025-02-23 20:34 | STROKE.PNOTE ---
Objective Data Objective Data Vital Signs: Vital Signs Temp Pulse Resp BP Pulse Ox O2 Del Method 98.4 F 85 18 99/86 H 96 Room Air 02/23/25 12:43 02/23/25 12:43 02/23/25 12:43 02/23/25 12:43 02/23/25 12:43 02/23/25 14:19 Oxygen Delivery Method Room Air Weight: 121.1 kg Body Mass Index (BMI) 45.8 Intake & Output: Intake and Output for Last 24 Hours 02/21/25 02/22/25 02/23/25 23:59 23:59 23:59 Intake Total 680 / 680 660 / 660 Balance 680 / 680 660 / 660 Lab / Micro Data 02/23/25 04:25 02/23/25 04:25 Labs: Laboratory Results - last 24 hr 02/23/25 04:25: WBC 7.5, RBC 4.31, Hgb 11.7 L, Hct 37.9, MCV 87.9, MCH 27.1, MCHC 30.9 L, RDW Std Deviation 41.7, RDW Coeff of Pb 13.0, Plt Count 273, MPV 9.7, Immature Gran % (Auto) 0.700, Neut % (Auto) 59.7, Lymph % (Auto) 27.8, [place] % (Auto) 8.2, Eos % (Auto) 3.2, Baso % (Auto) 0.4, Absolute Neuts (auto) 4.5, Absolute Lymphs (auto) 2.09, Nucleated RBC % 0, Sodium 139, Potassium 4.4, Chloride 105, Carbon Dioxide 26.6, Anion Gap 8, BUN 18, Creatinine 0.76, Estim Creat Clear Calc 107.29, Est GFR (MDRD) Non-Af 93, BUN/Creatinine Ratio 23.9 H, Glucose 125 H, Calcium 11.5 H, Triglycerides 165, Cholesterol 172, LDL Cholesterol, Calc 105, VLDL Cholesterol 33, HDL Cholesterol 38 L, Cholesterol/HDL Ratio 4.48 Rhythm Strip Rhythm Strip: Sinus Rhythm Rate: 71 Ectopy: None Physical Exam Neuro Neuro Narrative: Neurological?examination: General: The patient appears nutritionally appropriate, well-groomed, and appears comfortable in no acute distress. Mental Status: ?The patient?s mental status was normal including orientation. ?Language was intact. ?Cranial nerves: ?No visual complaints, and extra-ocular motion was intact. Face motion symmetric. Tongue was midline with normal movement. ?There was no dysarthria but speech was unusual, accented/childish/lisp. Motor: Some bouncing and downward drift without pronation noted in left arm, but with encouragement able to anti-gravity all 4 limbs. No pronator drift. Entrainment noted on FFM. Sensation: Decreased sensory on left side. ?Coordination: ?Bilateral finger to nose was normal. ?There was no dysmetria. Gait: ?deferred Subject: Neurology Subjective Patient feels better but still has numbness on left side and feels tired. BUSTOS 8/10 this AM. 132/82. Assessment and Plan: Stroke Assessment/Plan NELIA KNOWLES is a 54 year old RH female with a history of stress related stroke hospitalized [place] 2002 with residual mild right hemiparesis (uses a cane prn, was never placed on on Asa) and migraines who on 02/22/25 at 830a developed generalized weakness and left sided numbness with stuttering speech. She presented to [place] [facility] where telestroke showed NIHSS 3. CT brain negative for acute changes. CTA head/neck negative. She was admitted. MRI brain DWI negative. She has a significant BUSTOS 10/22. Neurological examination shows unusual speech and left body sensory, NIHSS-2 (sens-1, dys-1). ASSESSMENT/PLAN: Complicated migraine 1) Stroke ruled out with negative MRI brain DWI. No further stroke work-up recommended 2) Recommend BUSTOS cocktail. 3) Follow-up in neurology clinic as outpatient. Primary team messaged recs on backline. Tomasa Avelar MD NIHSS NIHSS Nursing Documentation NIHSS Nursing Documentation: NIHSS: Ischemic Stroke/TIA Start: 02/22/25 13:28 Text: For PCU Patients: NIH and Neuro Check every 12 Status: Discharge hours, PRN and with change in RN caregiver. Freq: Q12H Protocol: Activity Type Activity Date Activity User E-sign Co-sign Detail Recorded Client Recorded Date Recorded By Document 02/23/25 09:15 LENIN [id number] 02/23/25 09:25 LENIN 02/23/25 09:15 NIH Stroke Scale [NIHSS] A score of 0 is normal or asymptomatic . Total possible score is 42. Inpatient: RN or Physician to activate a stroke alert for onset of new stroke symptoms or with NIHSS increase >/= 3 points. Following change in neurological status, NIHSS will be performed per physician order or more frequently PRN. -1a. Level of Consciousness 0 - Alert; keenly responsive -1b. LOC Questions 0 - Answers BOTH questions correctly -1c. LOC Commands 0 - Performs BOTH tasks correctly -2. Best Gaze 0 - Normal -3. Visual 0 - No visual loss -4. Facial Palsy 0 - Normal symmetrical movements -5a. Left Arm 1 - Drift; arm drifts downward but doesn?t hit the bed -5b. Right Arm 0 - No drift; arm holds 90 ( or 45) degrees for full 10 seconds -6a. Left Leg 1 - Drift; leg falls by the end of 5- seconds, but does not hit bed -6b. Right Leg 0 - No drift; leg holds 30- degree position for full 5 seconds -7. Limb Ataxia 0 - Absent -8. Sensory 1 - Mild-to- moderate sensory loss; -9. Best Language 0 - No aphasia; normal -10. Dysarthria 0 - Normal -11. Extinction and Inattention 0 - No abnormality -Total 3 Query Text:A score of 0 is normal or asymptomatic. Total possible score is 42 . ED: Notify Physician for NIHSS increase by > / = 3 points. Inpatient: RN or Physician to activate a stroke alert for NIHSS increase of > / = 3 points. Coma Scale [Assess] -Eye Opening Spontaneous -Motor Obeys Commands -Verbal Oriented [Total] -Coma Scale Total 15 NIHSS 1a. Level of Consciousness: 0 - Alert; keenly responsive 1b. LOC Questions: 0 - Answers BOTH questions correctly 1c. LOC Commands: 0 - Performs BOTH tasks correctly 2. Best Gaze: 0 - Normal 3. Visual: 0 - No visual loss 4. Facial Palsy: 0 - Normal symmetrical movements 5a. Left Arm: 0 - No drift; arm holds 90 (or 45) degrees for full 10 seconds 5b. Right Arm: 0 - No drift; arm holds 90 (or 45) degrees for full 10 seconds 6a. Left Le - No drift; leg holds 30-degree position for full 5 seconds 6b. Right Le - No drift; leg holds 30-degree position for full 5 seconds 7. Limb Ataxia: 0 - Absent 8. Sensory: 1 - [id number] sensory loss; 9. Best Language: 0 - No aphasia; normal 10. Dysarthria: 0 - Normal 11. Extinction and Inattention: 0 - No abnormality Total: 1
== END 2025-02-23 15:14 | disposition home or self-care (01) ==
LOC: ED 12:05 → PCU 12:43
PROVIDERS: Admitting Provider Family Medicine; Emergency Provider Emergency Medicine; PCP Internal Medicine; Visit Provider Family Medicine
DX: G43.109 Migraine with aura, not intractable, without status migrainosus (principal); I69.351 Hemiplegia and hemiparesis following cerebral infarction affecting right dominant side; F31.9 Bipolar disorder, unspecified; J44.9 Chronic obstructive pulmonary disease, unspecified; G40.909 Epilepsy, unspecified, not intractable, without status epilepticus; E11.22 Type 2 diabetes mellitus with diabetic chronic kidney disease; F41.9 Anxiety disorder, unspecified; I12.9 Hypertensive chronic kidney disease with stage 1 through stage 4 chronic kidney disease, or unspecified chronic kidney disease; Z79.82 Long term (current) use of aspirin; D50.9 Iron deficiency anemia, unspecified; E83.52 Hypercalcemia; R29.898 Other symptoms and signs involving the musculoskeletal system; Z79.51 Long term (current) use of inhaled steroids; Z79.02 Long term (current) use of antithrombotics/antiplatelets; E78.5 Hyperlipidemia, unspecified; N18.9 Chronic kidney disease, unspecified; R47.9 Unspecified speech disturbances; R20.2 Paresthesia of skin; Z79.899 Other long term (current) drug therapy; F17.220 Nicotine dependence, chewing tobacco, uncomplicated; F43.10 Post-traumatic stress disorder, unspecified
CPT/HCPCS: 36415; 70450; 70496; 70498; 70551; 80048; 80061; 84484; 85025; 85610; 85730; 92521; 92522; 93005; 93306; 94640; 94762; 97162; 97166; 97802; 99221; 99285; 99406; Q9967; A4216; G0378

== ENCOUNTER 2025-03-01 18:31 | Emergency (ER) | payer MEDICAID, SELFPAY ==
--- NOTE | 2025-03-01 18:35 | RAD_ITS ---
PROCEDURE: CHEST 1 VIEW (PORTABLE) 03/01/2025 REASON FOR EXAM: COUGH AND FEVER TECHNIQUE: Frontal view of the chest. COMPARISON: 12/2024. FINDINGS: Bilateral perihilar opacities which may represent vascular congestion or mild infection. The heart is normal in size. No acute osseous abnormalities. RAD/Chest 1 View (Portable) IMPRESSION: Pulmonary findings as above. Reading [facility]
--- NOTE | 2025-03-01 18:35 | CT_ITS ---
PROCEDURE: CTA HEAD AND NECK W/ CONTRAST 03/01/2025 REASON FOR EXAM: LEFT WEAKNESS TECHNIQUE: Procedure Code: CTCTA.HDNCK Modality: CT Procedure: CTA HEAD AND NECK W/ CONTRAST Multiplanar Sagittal and Coronal images were obtained. 3D post processing was performed. CONTRAST: Isovue 370 VOLUME: 100 mL One or more dose reduction techniques were used (e.g., Automated exposure control, adjustment of the mA and/or kV according to patient size, use of iterative reconstruction technique). RADIATION DOSE SUMMARY: DLP: 1503.32 mGycm COMPARISON: CT head/angiography 02/22/2025, 12/28/2024. FINDINGS: CTA HEAD: Patent intracranial arterial vasculature. No large vessel occlusion, flow- limiting stenosis, saccular aneurysm, or vascular malformation identified. Dural venous sinuses appear patent. CTA NECK: Conventional aortic arch branching. Bilateral cervical carotid and vertebral arteries are patent, normal in course and caliber. No hemodynamically significant stenosis, aneurysm or dissection. NONCONTRAST CT HEAD: No acute intracranial hemorrhage, extra-axial collection, mass effect or evidence of acute infarct. Ventricles and subarachnoid spaces are normal in size. Orbital contents are unremarkable. Intact skull base and calvarium. Well-aerated paranasal sinuses and mastoid air cells. CT/CTA Head AND Neck W/ Contrast IMPRESSION: No acute intracranial abnormality. Normal CTA of the head and neck. Reading Location: [id number]
--- NOTE | 2025-03-01 18:40 | ED.RN ---
Pt initially called STROKE ALERT by EMS. On pt arrival with evaluated by Dr. Patel and deemed not a stroke alter and was cancelled. Pt was A&Ox3, moving all extremities. Taken to CT for scans, instructed not to call [facility] by Amanda due to pt not being a stroke alert. RN in with pt after CT, pt refusing to answer questions appropriately. Pt became angry with RN while attempting to straight stick for blood work. RN informed pt that blood work is needed for appropriate treatment. Oncoming PARMJIT Ayala made aware of pt condition.
[2025-03-01 18:48] VITALS: BP 148/77; PULSE 88; RESP 19; TEMP 39.1; O2SAT 95; BMI 46.7
[2025-03-01 18:52] VITALS: BP 106/56; PULSE 81; RESP 20; TEMP 37.6; O2SAT 95
[2025-03-01 18:57] LABS: Hematocrit 39.0 % (37-47); Hemoglobin 13.2 g/dL (12.0-15.0); Immature Granulocytes Count 0.040 X10^3/uL (0.0-0.0); Mean Corp Hgb Conc 33.8 g/dL (32-36); Mean Corpuscular Volume 85.7 fL (81-99); Mean Platelet Vol. 9.8 fl (6.2-12.0); NRBC Flagged by Analyzer 0 % (0-5); Platelet Count 278 K/mm3 (150-450); RBC Distribution Width CV 12.8 % (11.6-14.6); RBC Distribution Width SD 39.6 fl (35.1-43.9); Red Blood Count 4.55 M/mm3 (4.2-5.4); White Blood Count 8.1 K/mm3 (4.4-11.0)
--- NOTE | 2025-03-01 18:58 | EX.ED.DYSGE1 ---
HPI History of Present Illness Chief Complaint: Stroke Alert Informant: patient and EMS Narrative Narrative: 54-year-old female prehospital stroke alert. EMS reporting left-sided deficit arms legs face speech. Reported last known well at 2000 hours last night. Patient For[place] cough headache chills and fever as well as rhinorrhea. She was seen in the hospital last week with reported TIA. History of diabetes. EMS also notes that her fever. Oral temperature 102.3. PFSH PFSH Medical History Stimulant use disorder PTSD (post-traumatic stress disorder) Bipolar disorder, unspecified Separation of left acromioclavicular joint Left shoulder pain CKD (chronic kidney disease) History of heart attack History of CVA (cerebrovascular accident) (2002) Type 2 diabetes mellitus Essential hypertension COPD (chronic obstructive pulmonary disease) Asthma Epilepsy Home Medications ?Medication ?Instructions ?Recorded ?Last Taken ?Type simvastatin 20 mg tablet 20 mg PO QHS CHOLESTEROL 01/26/17 02/28/25 History albuterol sulfate 90 mcg/actuation 2 puff inhalation Q6H PRN 10/03/21 12/23/24 History aerosol inhaler (Ventolin HFA) Shortness Of Breath ferrous sulfate 325 mg (65 mg 325 mg PO DAILY SUPPLEMENT 10/03/21 03/01/25 History iron) tablet (FeroSul) sumatriptan succinate 25 mg tablet 25 mg PO Q2H PRN migraine headache 10/19/23 12/26/24 Rx (Imitrex) #10 tabs levetiracetam 1,000 mg tablet 1,000 mg PO BID SEIZURE #60 tabs 04/12/24 03/01/25 Rx (Keppra) aspirin 81 mg tablet,delayed 81 mg PO DAILY HEART HEALTH 10/06/24 03/01/25 History release cholecalciferol (vitamin D3) 125 125 mcg PO DAILY SUPPLEMENT 10/06/24 03/01/25 History mcg (5,000 unit) tablet (Vitamin D3) fluticasone propionate 115 2 puff inhalation BID SOB 10/06/24 03/01/25 History mcg-salmeterol 21 mcg/actuation HFA inhaler (Advair HFA) gabapentin 400 mg capsule 400 mg PO TID PAIN 10/06/24 03/01/25 History ibuprofen 800 mg tablet 800 mg PO TID HEADACHE 10/06/24 03/01/25 History montelukast 10 mg tablet 10 mg PO DAILY ASTHMA 10/06/24 03/01/25 History pantoprazole 20 mg tablet,delayed 20 mg PO DAILY GERD 10/06/24 03/01/25 History release propranolol 20 mg tablet 20 mg PO BID HTN 10/06/24 03/01/25 History sertraline 100 mg tablet 100 mg PO DAILY MOOD 10/06/24 03/01/25 History sertraline 25 mg tablet 25 mg PO DAILY MOOD 10/06/24 03/01/25 History furosemide 20 mg tablet 20 mg PO DAILY PRN edema 12/25/24 12/27/24 History fluticasone propionate 50 1 spray intranasal Q12H PRN 12/28/24 12/28/24 History mcg/actuation nasal allergy symptoms spray,suspension ondansetron 4 mg disintegrating 4 mg PO Q8H PRN Nausea 12/28/24 12/26/24 History tablet ergocalciferol (vitamin D2) 1,250 1,250 mcg PO DAILY 02/22/25 Unknown History mcg (50,000 unit) capsule (Vitamin D2) oseltamivir 75 mg capsule (Tamiflu) 75 mg PO BID 5 days #9 caps 03/01/25 Unknown Rx Allergy/AdvReac Type Severity Reaction Status Date / Time Latex, Natural Rubber Allergy Rash Verified 03/01/25 18:49 Penicillins (PCN) AdvReac Nausea/Vom/ Verified 03/01/25 18:49 Diarrhea Family History Other Diabetes Heart disease Surgical History History of section History of left heart catheterization (12/11/16) History of cholecystectomy Social History household members: none current occupational status: employed Smoking Status: Current every day smoker tobacco type: smokeless tobacco Smokeless tobacco user: chewing tobacco ROS ROS ED ROS Narrative Patient reports feeling generally weak Constitutional Constitutional ED: Reports chills, fever(s) and sweats; Denies weight loss Eyes Eyes: Denies change in vision or diplopia ENT ENT ED: Reports rhinorrhea; Denies ear pain or sore throat Cardiovascular Cardiovascular: Denies chest pain, orthopnea, palpitations or racing heartbeat Respiratory/Chest Respiratory/Chest: Reports cough; Denies dyspnea or orthopnea Gastrointestinal Gastrointestinal: Reports nausea; Denies abdominal pain, diarrhea or vomiting Genitourinary Genitourinary ED: Denies dysuria, hematuria or urinary frequency Musculoskeletal Musculoskeletal: Reports myalgias; Denies arthralgias Integumentary Denies abscess or rash Neurologic Neurologic: Reports headache(s) and weakness; Denies paresthesias Psychiatric Psychiatric: Denies anxiety, depression, suicidal ideation or suicidal thoughts Endocrine Endocrinology: Denies polydipsia, polyphagia or polyuria Allergic/Immunologic Allergic/Immunologic ED: Denies mouth swelling, tongue swelling or urticaria EXAM Physical Exam Const Vital Signs: 03/01/25 18:48 03/01/25 18:52 03/01/25 19:31 Temperature 102.3 F H 99.6 F H Temperature Source Oral Temporal Pulse Rate 88 81 84 Respiratory Rate 19 H 20 H Blood Pressure 148/77 H 106/56 L Blood Pressure Mean 100 72 Pulse Ox 95 95 Oxygen Delivery Method Room Air Room Air 03/01/25 20:45 03/01/25 21:46 Temperature 99.2 F H 98.6 F Temperature Source Oral Pulse Rate 80 80 Respiratory Rate 18 18 Blood Pressure 124/108 H 124/60 H Blood Pressure Mean 113 81 Pulse Ox 93 98 Oxygen Delivery Method Room Air Positive well nourished, well developed and obese General Appearance ED: well developed and NAD Nutritional Appearance: obese HEENT Reports normocephalic, head/scalp atraumatic and moist mucous membranes Eyes PERRL and EOMs intact bilaterally Neck no lymphadenopathy, supple and no JVD Resp normal respiratory effort and clear to auscultation bilaterally Cardio regular rate, regular rhythm and no murmurs GI normal to inspection, nondistended, normoactive bowel sounds and non-tender Palpation: soft Back/Spine no CVA tenderness and normal ROM Extremity normal to inspection General Extremety ED: Negative for edema General Extremity: Negative for edema Neuro oriented x3, CN's II-XII intact bilaterally and no sensory deficits noted Neuro Narrative: Patient is shaking both arms and legs. She has good push pull both upper extremities. I see movement in both legs against gravity. I do not appreciate a facial droop. Sensorium / Orientation: alert Psych Mood & Affect: anxious; Negative for depressed or tearful Skin no rashes or lesions noted and no wounds MDM MDM MDM Narrative Medical decision making narrative: Differential diagnosis includes stroke pneumonia viral syndrome dehydration electrolyte abnormalities sepsis UTI Patient was taken from the EMS cot to CT scanner where CTA of the head and neck was obtained which was negative for LVO hemorrhage or mass. She is brought back to the room. My independent interpretation of the chest x-ray is no acute process. Lactic acid is normal at 1.4. She is influenza A positive white count is 8.1 hemoglobin 13.2 platelet count of 278 INR is normal at 1 PTT 24.8 normal electrolytes creatinine 0.84 with a BUN of 11 glucose 112 urinalysis with no overt infection Patient received Tylenol and IV fluids. She has been able to up and ambulate to the bathroom several times. I spoke with the patient and informed her that she is influenza A positive. We talked about Tamiflu and she was receptive to this until the nurse brought her Tamiflu and she refused. I would recommend oral hydration and antipyretics. Return if worsening or concerns History & Record Review Discussion w/independent historian: Patient Additional record(s) reviewed:: Prior inpatient record, Prior ED visit and Prior labs Lab Data Attestation: I reviewed the patient's lab results. Labs: Laboratory Results - last 24 hr 03/01/25 03/01/25 03/01/25 18:42 19:10 19:28 WBC 8.1 RBC 4.55 Hgb 13.2 Hct 39.0 MCV 85.7 MCH 29.0 MCHC 33.8 RDW Std Deviation 39.6 RDW Coeff of Pb 12.8 Plt Count 278 MPV 9.8 Immature Gran % (Auto) 0.500 Neut % (Auto) 77.8 H Lymph % (Auto) 11.5 L [place] % (Auto) 7.3 Eos % (Auto) 2.5 Baso % (Auto) 0.4 Absolute Neuts (auto) 6.3 Absolute Lymphs (auto) 0.93 Nucleated RBC % 0 PT 13.5 INR 1.0 APTT 24.8 Sodium 137 Potassium 4.2 Chloride 102 Carbon Dioxide 25.4 Anion Gap 10 BUN 11 Creatinine 0.84 Estim Creat Clear Calc 98.32 Est GFR (MDRD) Non-Af 82 BUN/Creatinine Ratio 12.7 Glucose 112 H Lactic Acid 1.4 Calcium 10.8 Total Bilirubin 0.43 AST 22 ALT 16 Alkaline Phosphatase 120 H Total Protein 7.3 Albumin 4.0 Globulin 3.3 Albumin/Globulin Ratio 1.2 Urine Color Yellow Urine Clarity Clear Urine pH 8.0 Ur Specific [place] 1.010 Urine Protein Negative Urine Glucose (UA) Normal Urine Ketones Negative Urine Occult Blood Negative Urine Nitrite Negative Urine Bilirubin Negative Urine Urobilinogen Normal Ur Leukocyte Esterase Negative Urine RBC 0 SEEN Urine WBC 0 SEEN Ur Squamous Epith Cells 0-5 SEEN Urine Bacteria 1+ Urine Mucus 0 SEEN Radiography Diagnostic Testing: Clinical Impression(s) from Imaging Studies Chest X-Ray 03/01/25 18:35 IMPRESSION: Pulmonary findings as above. Reading Location: [facility] Head/Neck CTA 03/01/25 18:35 IMPRESSION: No acute intracranial abnormality. Normal CTA of the head and neck. Reading Location: [id number] Discharge Plan Triage Chief Complaint: Stroke Alert ED Provider: Jm Patel Dx/Rx/DC Orders Clinical Impression: Influenza A, Weakness, History of CVA (cerebrovascular accident) Instructions: ED Influenza (Adult) Prescriptions: New oseltamivir [Tamiflu] 75 mg capsule 75 mg PO BID 5 Days Qty: 9 0RF No Action ferrous sulfate [FeroSul] 325 mg (65 mg iron) tablet 325 mg PO DAILY albuterol sulfate [Ventolin HFA] 90 mcg/actuation HFA aerosol inhaler 2 puff inhalation Q6H PRN (Reason: Shortness Of Breath) simvastatin 20 MG tablet 20 mg PO QHS levetiracetam [Keppra] 1,000 mg tablet 1,000 mg PO BID Qty: 60 0RF gabapentin 400 mg capsule 400 mg PO TID aspirin 81 mg tablet,delayed release (DR/EC) 81 mg PO DAILY fluticasone propion-salmeterol [Advair HFA] 115-21 mcg/actuation HFA aerosol inhaler 2 puff inhalation BID cholecalciferol (vitamin D3) [Vitamin D3] 125 mcg (5,000 unit) tablet 125 mcg PO DAILY Patient Comments: mowefr ibuprofen 800 mg tablet 800 mg PO TID Patient Comments: pt states she takes as needed sertraline 100 mg tablet 100 mg PO DAILY Patient Comments: WITH 25MG pantoprazole 20 mg tablet,delayed release (DR/EC) 20 mg PO DAILY sertraline 25 mg tablet 25 mg PO DAILY Patient Comments: WITH 100MG montelukast 10 mg tablet 10 mg PO DAILY propranolol 20 mg tablet 20 mg PO BID furosemide 20 mg tablet 20 mg PO DAILY PRN (Reason: edema) fluticasone propionate 50 mcg/actuation spray,suspension 1 spray INTRANASAL Q12H PRN (Reason: allergy symptoms) ondansetron 4 mg tablet,disintegrating 4 mg PO Q8H PRN sumatriptan succinate [Imitrex] 25 mg tablet 25 mg PO Q2H PRN (Reason: migraine headache) Qty: 10 0RF Rx Instructions: do not exceed 8 doses per 24 hrs ergocalciferol (vitamin D2) [Vitamin D2] 1,250 mcg (50,000 unit) capsule 1,250 mcg PO DAILY Stand Alone Forms: ED Work / School Excuse Primary Care Provider: Stephany Livingston Referrals: Stephany Livingston MD [Primary Care Provider, Internal Medicine] - As Needed Activity Restrictions/Additional Instructions: It is very important that you monitor your breathing. It is very important that you drink any fluids to keep your urine a light yellow to clear. I recommend using Tylenol every 6-8 hours to keep your fever down. As we discussed I am prescribing you Tamiflu. One of the side effects of Tamiflu can be nausea and vomiting. If you would experience nausea and vomiting while using the Tamiflu you may consider discontinuing it. Print Language: Divehi Disposition Disposition: Home, Self Care Discharge Date/Time: 03/01/25 22:00
[2025-03-01] MEDS: 0.9% Normal Saline (1000mL) 1,000 ML 1000 ML IV (19:00)
[2025-03-01 19:05] LABS: Prothrombin Time (Protime)PT. 13.5 SECONDS (11.7-14.9)
[2025-03-01 19:06] LABS: Partial Thromboplast Time 24.8 Seconds (24.1-36.2)
[2025-03-01 19:31] VITALS: PULSE 84
--- NOTE | 2025-03-01 19:31 | ED.RN ---
using a walker,pt walked to the bathroom and obtained a urine specimen and then walked back to the bed. Gait steady with walker.
[2025-03-01 19:36] LABS: Mucous, Urine 0 SEEN /hpf (<or=2+); Red Blood Cells-Urine 0 SEEN /hpf (0-5)
[2025-03-01 19:38] LABS: Color, Urine Yellow (Yellow); Glucose, Dipstick Normal (Normal); Ketone-Dipstick Negative (Negative); Leukocyte Esterase-Dipstick Negative /ul (Negative); Nitrite-Dipstick Negative (Negative); Occult Blood-Urine Negative /ul (Negative); Protein-Dipstick Negative (Negative); Specific Gravity, Urine 1.010 (1.002-1.030); Urine Bilirubin Dipstick Negative (Negative)
[2025-03-01 19:51] LABS: AST(SGOT) 22 U/L (<=31); Alanine Aminotransfer ALT/SGPT 16 U/L (<=34); Albumin, Serum 4.0 g/dL (3.5-5.0); Alkaline Phosphatase 120 U/L (35-104); Anion Gap 10 (5-15); BUN 11 mg/dL (4-19); BUN/Creat Ratio 12.7 RATIO (10-20); Calcium,Total 10.8 mg/dL (7.6-11.0); Carbon Dioxide 25.4 mmol/L (21.0-32.0); Chloride 102 mmol/L (98-108); Estimated Creatinine Clearance 98.32 ml/min (50-250); Globulin 3.3 g/dL (2.2-4.2); Glucose 112 mg/dL (70-99); Potassium 4.2 mmol/L (3.3-5.1)
[2025-03-01 20:45] VITALS: BP 124/108; PULSE 80; RESP 18; TEMP 37.3; O2SAT 93
[2025-03-01 20:51] LABS: Squamous Epithelial Cells - UA 0-5 SEEN /hpf (5-10)
[2025-03-01 21:46] VITALS: BP 124/60; PULSE 80; RESP 18; TEMP 37; O2SAT 98
== END 2025-03-01 22:00 | disposition home or self-care (01) ==
PROVIDERS: Emergency Provider Emergency Medicine; PCP Internal Medicine; Visit Provider Emergency Medicine
DX: J10.1 Influenza due to other identified influenza virus with other respiratory manifestations (principal); J44.9 Chronic obstructive pulmonary disease, unspecified; E11.22 Type 2 diabetes mellitus with diabetic chronic kidney disease; N18.9 Chronic kidney disease, unspecified; Z86.73 Personal history of transient ischemic attack (TIA), and cerebral infarction without residual deficits; I12.9 Hypertensive chronic kidney disease with stage 1 through stage 4 chronic kidney disease, or unspecified chronic kidney disease; R53.1 Weakness; I25.2 Old myocardial infarction; Z79.899 Other long term (current) drug therapy; Z79.82 Long term (current) use of aspirin; Z79.51 Long term (current) use of inhaled steroids; Z90.49 Acquired absence of other specified parts of digestive tract; F17.220 Nicotine dependence, chewing tobacco, uncomplicated
CPT/HCPCS: 70496; 70498; 71045; 80053; 81001; 83605; 85025; 85610; 85730; 87631; 96360; 96361; 99285; Q9967; A4216